=== PATIENT | male | born 1940 | race Caucasian/White ===

== ENCOUNTER → 2020-01-30 07:30 | Outpatient (BNVA) | payer MEDICARE, SELFPAY | PROVIDERS: PCP Internal Medicine; Referring Provider Internal Medicine; Visit Provider Internal Medicine Endocrinology, Diabetes & Metabolism | DX: E11.65 Type 2 diabetes mellitus with hyperglycemia (principal); E11.40 Type 2 diabetes mellitus with diabetic neuropathy, unspecified; E11.22 Type 2 diabetes mellitus with diabetic chronic kidney disease; I12.9 Hypertensive chronic kidney disease with stage 1 through stage 4 chronic kidney disease, or unspecified chronic kidney disease; N18.30 Chronic kidney disease, stage 3 unspecified; Z79.4 Long term (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 insulin; E66.9 Obesity, unspecified; E78.5 Hyperlipidemia, unspecified; E55.9 Vitamin D deficiency, unspecified; Z79.899 Other long term (current) drug therapy | CPT/HCPCS: 99214 ==

== ENCOUNTER → 2020-04-03 10:09 | Outpatient (BNVA) | payer MEDICARE, SELFPAY | PROVIDERS: PCP Internal Medicine; Referring Provider Internal Medicine; Visit Provider Anesthesiology | DX: M48.061 Spinal stenosis, lumbar region without neurogenic claudication (principal); E66.9 Obesity, unspecified; M47.9 Spondylosis, unspecified; G89.4 Chronic pain syndrome | CPT/HCPCS: 99212 ==

== ENCOUNTER → 2020-05-09 08:01 | Outpatient (BNVA) | payer MEDICARE, SELFPAY | PROVIDERS: PCP Internal Medicine; Visit Provider Anesthesiology | DX: E66.9 Obesity, unspecified (principal); M48.061 Spinal stenosis, lumbar region without neurogenic claudication; M47.9 Spondylosis, unspecified; G89.4 Chronic pain syndrome | CPT/HCPCS: 99212 ==

== ENCOUNTER → 2020-06-10 16:29 | Outpatient (BNVA) | payer MEDICARE, SELFPAY | PROVIDERS: PCP Internal Medicine; Visit Provider Anesthesiology | DX: E66.9 Obesity, unspecified (principal); M48.061 Spinal stenosis, lumbar region without neurogenic claudication; M47.9 Spondylosis, unspecified; G89.4 Chronic pain syndrome | CPT/HCPCS: Q3014 ==

== ENCOUNTER 2020-07-11 10:52 | Outpatient (REF) | payer MEDICARE, SELFPAY ==
[2020-07-11 12:23] LABS: MANUAL DIFF FLAG NO
[2020-07-11 12:32] LABS: Basophils Percent Auto 0.8 % (0-2); Eosinophils Absolute Auto 0.1 X10*3/uL (0.0-0.4); Eosinophils Percent Auto 1.8 % (0-4); Hematocrit 40.8 % (42-52); Hemoglobin 13.5 g/dl (14.0-18.0); Lymphocytes Absolute Auto 1.8 X10*3/uL (1.2-4.9); Lymphocytes Percent Auto 35.4 % (20-40); Mean Corpuscular HGB Conc 33.1 g/dl (31.0-36.0); Mean Corpuscular Hemoglobin 31.3 pg (27.0-33.0); Mean Corpuscular Volume 94.7 fL (80-98); Mean Platelet Volume 11.4 fL (9.4-12.4); Monocytes Absolute Auto 0.4 X10*3/uL (0.1-1.2); Monocytes Percent Auto 6.9 % (2-11); Neutrophils Absolute Auto 2.8 X10*3/uL (2.0-8.3); Neutrophils Percent Auto 55.1 % (45-73); Platelet Count 143 X10*3/uL (160-400); Red Blood Count 4.31 X10*6/uL (4.60-5.80); Red Cell Distribution Width 13.2 % (11.0-16.0); White Blood Count 5.1 X10*3/uL (4.8-10.8)
[2020-07-11 12:42] LABS: Cholesterol 136 mg/dL; HDL Cholesterol 53 mg/dL; INTERNATIONAL NORM RATIO 1.1 (0.9-1.1); LDL Cholesterol Calculated 59 mg/dl; Prothrombin Time 12.7 SEC (10.8-13.0); Triglycerides 122 mg/dL
[2020-07-11 13:00] LABS: Anion Gap 15 (12-20); Blood Urea Nitrogen 23 mg/dL (9-16); Calcium 9.1 mg/dL (8.4-10.2); Carbon Dioxide 27 mmol/L (22-29); Chloride 103 mmol/L (96-108); Estimated Glomerular Filt Rate 59; Potassium 4.7 mmol/L (3.3-5.1); Sodium 140 mmol/L (135-145)
[2020-07-11 13:04] LABS: Glucose Random 449 mg/dL (60-115)
[2020-07-11 13:49] LABS: Creatinine Urine 90.79 mg/dL; Microalbum/Creatinine Ratio Ur 59.4 ug/mg cr
[2020-07-12 06:07] LABS: LDL Cholesterol Direct 69 mg/dL (<100)
[2020-07-16 13:12] LABS: Vitamin D 25-OH, D2 <4 ng/mL; Vitamin D 25-OH, D3 25 ng/mL; Vitamin D 25-OH, Total 25 ng/mL (30-100)
== END 2020-07-11 10:53 | disposition home or self-care (01) ==
LOC: HO.LAB 10:52
PROVIDERS: Internal Medicine Clinical Cardiac Electrophysiology; Internal Medicine Endocrinology, Diabetes & Metabolism; PCP Internal Medicine; Visit Provider Internal Medicine Cardiovascular Disease
DX: I25.10 Atherosclerotic heart disease of native coronary artery without angina pectoris (principal); E55.9 Vitamin D deficiency, unspecified; E11.65 Type 2 diabetes mellitus with hyperglycemia; Z79.01 Long term (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 anticoagulants
CPT/HCPCS: 36415; 80048; 80061; 82043; 82306; 83721; 85025; 85610

== ENCOUNTER → 2020-07-15 08:49 | Outpatient (BNVA) | payer MEDICARE, SELFPAY | PROVIDERS: PCP Internal Medicine; Visit Provider Nurse Practitioner Gerontology | DX: E11.65 Type 2 diabetes mellitus with hyperglycemia (principal); E11.21 Type 2 diabetes mellitus with diabetic nephropathy; E11.22 Type 2 diabetes mellitus with diabetic chronic kidney disease; I12.9 Hypertensive chronic kidney disease with stage 1 through stage 4 chronic kidney disease, or unspecified chronic kidney disease; N18.30 Chronic kidney disease, stage 3 unspecified; Z79.4 Long term (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 insulin; E66.9 Obesity, unspecified; E78.5 Hyperlipidemia, unspecified | CPT/HCPCS: 82947; 99212 ==

== ENCOUNTER → 2020-08-01 10:16 | Outpatient (BNVA) | payer MEDICARE, SELFPAY | PROVIDERS: PCP Internal Medicine; Visit Provider Internal Medicine Endocrinology, Diabetes & Metabolism | DX: E11.65 Type 2 diabetes mellitus with hyperglycemia (principal); E11.40 Type 2 diabetes mellitus with diabetic neuropathy, unspecified; E11.21 Type 2 diabetes mellitus with diabetic nephropathy; E11.22 Type 2 diabetes mellitus with diabetic chronic kidney disease; I12.9 Hypertensive chronic kidney disease with stage 1 through stage 4 chronic kidney disease, or unspecified chronic kidney disease; N18.30 Chronic kidney disease, stage 3 unspecified; Z79.4 Long term (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 insulin; E78.5 Hyperlipidemia, unspecified; E66.9 Obesity, unspecified; E55.9 Vitamin D deficiency, unspecified | CPT/HCPCS: 82947; 99212 ==

== ENCOUNTER 2020-09-06 11:03 | Day surgery (SDC) | payer MEDICARE, SELFPAY ==
[2020-09-02 11:49] VITALS: BMI 32.5
--- NOTE | 2020-09-05 14:18 | HO.ANESPROP2 ---
Documented by User: Teresa Henson 09/05/20 14:55 HPI - Anesthesia Eval Consult details Narrative: 80yo M for Lumbar Spinal Cord Simulation Trial Cardiac/EP cleared @ moderate risk. Pt had ICD placed 07/2020. Recommends [employer] be present for procedure. Per Renee at OR desk, Dr Verdin office is to set that up. Dr Verdin office notified. [facility] Active Problems Active Problems: All Active Problems (Updated 09/02/20 @ 12:00 by Tigist Quiles) Driving safety issue (Acute) Chronic pain syndrome (Acute) Spondylosis, unspecified (Acute) Spinal stenosis, lumbar region without neurogenic claudication (Acute) CAD (coronary artery disease) (Acute) Obesity (BMI 30-39.9) (Acute) Dyslipidemia (high LDL; low HDL) (Acute) Hypertension (Acute) Vitamin D deficiency (Acute) CKD stage 3 due to type 2 diabetes mellitus (Acute) Diabetic nephropathy associated with type 2 diabetes mellitus (Acute) Diabetic neuropathy associated with type 2 diabetes mellitus (Acute) terminologist (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 insulin (Acute) Diabetes type 2, uncontrolled (Acute) Past Medical History Medical History (Updated 09/06/20 @ 13:43 by Lissette Wade) BPH (benign prostatic hyperplasia) CAD (coronary artery disease) Chronic pain syndrome CKD stage 3 due to type 2 diabetes mellitus COVID-19 vaccine administered Diabetes type 2, uncontrolled Diabetic nephropathy associated with type 2 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 Dyslipidemia (high LDL; low HDL) Hard of hearing History of anal fissures Hx of cardiomyopathy Hypertension senior living (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 insulin Obesity (BMI 30-39.9) Spinal stenosis, lumbar region without neurogenic claudication Spondylosis, unspecified TIA (transient ischemic attack) Vitamin D deficiency Family History Family History Father Colon cancer Lung cancer Mother Diabetes Surgical History Surgical History H/O colonoscopy History of bowel resection History of cardiac defibrillator placement Hx of cholecystectomy Hx of coronary artery bypass graft Hx of hernia repair Social History Social History Smoking Status: Never smoker Use of substances other than those prescribed or required for medical reasons: No Have you been hit, kicked, punched, or otherwise hurt by someone within the past year? If so, by whom?: No Advance Directives Information Provided: No Recently lost weight without trying: No Eating poorly because of decreased appetite: No Nutrition Risks: Surgical patient >75years Meds Allergies Allergy/AdvReac Type Severity Reaction Status Date / Time No Known Allergies Allergy Verified 08/12/20 12:53 [No Known Allergies*] Home Medications Medication Instructions Recorded Confirmed Last Taken Type aspirin 81 mg tablet,delayed 81 mg PO DAILY 01/30/20 09/06/20 08/27/20 History release sacubitril 49 mg-valsartan 51 mg 1 tab PO BID 01/30/20 09/02/20 Unknown History tablet tamsulosin 0.4 mg capsule 0.4 mg PO BEDTIME 01/30/20 09/02/20 Unknown History gabapentin 300 mg capsule 600 mg PO BID cap 07/15/20 09/02/20 Unknown History nitroglycerin 0.4 mg sublingual 0.4 mg SUBLINGUAL ONCE PRN tab 07/15/20 09/02/20 Unknown History tablet oxycodone 5 mg tablet 5 mg PO tab 08/01/20 08/01/20 Unknown History insulin aspart (niacinamide) 15 - 22 unit SUBCUT TIDAC 09/02/20 09/02/20 Unknown History [Fiasp FlexTouch U-100 Insulin] insulin degludec [Tresiba 30 unit SUBCUT QAM 09/02/20 09/06/20 09/06/20 07:00 History FlexTouch U-100] 15 units liraglutide 1.8 mg SUBCUT QPM 09/02/20 09/06/20 09/05/20 19:00 History half of normal dose Exam Exam Date and Time: September 05, 2020 1418 Height,Weight and Vital Signs: Height 5 ft 8 in Weight 97 kg Pertinent Lab Results Pertinent Lab Results: Laboratory Tests 07/11/20 07/11/20 11:25 11:25 WBC 5.1 Hgb 13.5 L Hct 40.8 L Plt Count 143 L Sodium 140 Potassium 4.7 Chloride 103 Carbon Dioxide 27 BUN 23 H Creatinine 1.19 Narrative Narrative: BiV ICD interrogation 09/03/20 (full report on chart) DDD 50-130 bpm AP: 0.3% CERTIFIED SURGICAL FIRST ASSISTANT: 97.1% Lead impedence, threshold, and sensing auto testing all within normal parameters No alerts, etc No therapies delivered EF 27% Assessment and Plan Assessment Anesthesia Assessment: Chart Reviewed Documented by User: Lissette Wade 09/06/20 13:46 [facility] Past Medical History Medical History (Updated 09/06/20 @ 13:43 by Lissette Wade) BPH (benign prostatic hyperplasia) CAD (coronary artery disease) Chronic pain syndrome CKD stage 3 due to type 2 diabetes mellitus COVID-19 vaccine administered Diabetes type 2, uncontrolled Diabetic nephropathy associated with type 2 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 Dyslipidemia (high LDL; low HDL) Hard of hearing History of anal fissures Hx of cardiomyopathy Hypertension terminologist (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 insulin Obesity (BMI 30-39.9) Spinal stenosis, lumbar region without neurogenic claudication Spondylosis, unspecified TIA (transient ischemic attack) Vitamin D deficiency Family History Family History Father Colon cancer Lung cancer Mother Diabetes Family history of problems with anesthesia: No Surgical History Surgical History H/O colonoscopy History of bowel resection History of cardiac defibrillator placement Hx of cholecystectomy Hx of coronary artery bypass graft Hx of hernia repair History of Problems with Anesthesia: No Social History Social History Smoking Status: Never smoker Use of substances other than those prescribed or required for medical reasons: No Have you been hit, kicked, punched, or otherwise hurt by someone within the past year? If so, by whom?: No Advance Directives Information Provided: No Recently lost weight without trying: No Eating poorly because of decreased appetite: No Nutrition Risks: Surgical patient >75years Meds Allergies Allergy/AdvReac Type Severity Reaction Status Date / Time No Known Allergies Allergy Verified 08/12/20 12:53 [No Known Allergies*] Home Medications Medication Instructions Recorded Confirmed Last Taken Type aspirin 81 mg tablet,delayed 81 mg PO DAILY 01/30/20 09/06/20 08/27/20 History release sacubitril 49 mg-valsartan 51 mg 1 tab PO BID 01/30/20 09/02/20 Unknown History tablet tamsulosin 0.4 mg capsule 0.4 mg PO BEDTIME 01/30/20 09/02/20 Unknown History gabapentin 300 mg capsule 600 mg PO BID cap 07/15/20 09/02/20 Unknown History nitroglycerin 0.4 mg sublingual 0.4 mg SUBLINGUAL ONCE PRN tab 07/15/20 09/02/20 Unknown History tablet oxycodone 5 mg tablet 5 mg PO tab 08/01/20 08/01/20 Unknown History insulin aspart (niacinamide) 15 - 22 unit SUBCUT TIDAC 09/02/20 09/02/20 Unknown History [Fiasp FlexTouch U-100 Insulin] insulin degludec [Tresiba 30 unit SUBCUT QAM 09/02/20 09/06/20 09/06/20 07:00 History FlexTouch U-100] 15 units liraglutide 1.8 mg SUBCUT QPM 09/02/20 09/06/20 09/05/20 19:00 History half of normal dose Exam Height,Weight and Vital Signs: Vital Signs Temp Pulse Resp BP Pulse Ox 09/06/20 11:48 97.4 F 84 16 129/72 98 Pertinent Lab Results Pertinent Lab Results: Lab Results 09/06/20 Range/Units 11:46 POC Glucose 210 H (60-115) mg/dL Airway Mallampati Class: II TM Dist: >3cm Denture: Upper Heart: RRR Lungs: CTAB Assessment and Plan Assessment Anesthesia Assessment: Anesthesia Plan Discussed and Chart Reviewed Final Anesthetic Review NPO: Yes ASA Class: III Final Preanesthetic Review: No Changes in Pt Med Stat, Meds/Allgs Chart Reviewed, Consent Obtained/Reviewed and Anes Risks/Benef Reviewed Patient Risk: Intermediate Procedure Risk: Intermediate Assessment/Block/Sedation in SS: Assess/Block/Sedation-SS Anesthetic Plan Anesthetic Plan: MAC: Disposition: Standard PACU
--- NOTE | ~2020-09-06 | FL_ITS ---
EXAMINATION: XR FLUOROSCOPY WITH IMAGES CLINICAL INFORMATION: Spinal stimulator trial COMPARISON: None. TECHNIQUE: Fluoroscopy performed by Dr. Maksim Verdin. Fluoroscopy time: 6.9 minutes DAP: [id number] Images: 2 FINDINGS: Lateral and AP views of the lower thoracic spine demonstrates stimulator lead projecting over the lower thoracic spinal canal. FL/FL guidance in OR IMPRESSION: Fluoroscopy guidance for spinal stimulator
[2020-09-06 11:48] VITALS: BP 129/72; PULSE 84; RESP 16; TEMP 36.3; O2SAT 98
[2020-09-06 11:50] LABS: Glucose, Whole Blood 210 mg/dL (60-115)
--- NOTE | 2020-09-06 12:05 | P.HPSUR_ITS ---
Pre-Procedural Eval Section A The patient is an INPATIENT: No Changes since office visit: Yes Patient answered all questions The History & Physical has been completed within 30 days and I have reviewed it.: No Section B Chief Complaint: Chronic Pain Syndrome, Spinal Stenosis Details of Present Illness: as above Relevant Family History (Specify if Yes): No Relevant Social History: None Present Medications: see Short Stay Collaborative assessment Medical History: Significant History History of Previous Operations: Relevant previous surgery/procedure and date(s) (the patient has implanted defibrillator.) Allergies: Allergies Allergy/AdvReac Type Severity Reaction Status Date / Time No Known Allergies Allergy Verified 08/12/20 12:53 [No Known Allergies*] Review of Systems Sugical H&P ROS: Negative: Constitution, Respiratory, Neurological, Psychiatric, Hem-Onc, Allergic/Immunologic, Gastrointestinal, Genitourinary, Integumentary and Eyes/Ears/Nose/Throat and Yes, Specify: Cardiovascular (CHF), Musculoskeletal (spinal stenosis) and Endocrine (poorly controlled diabetes) Exam Surgical H&P Exam: Normal: HEENT, Normal: Heart, Normal: Lungs, Normal: Extre mities, Normal: Abdomen, Normal: Skin and Normal: Neurological Plan Diagnosis/Plan: Unchanged I have reviewed the history and physical and performed a pertinent physical examination on my patient. No changes have occurred unless specified.
[2020-09-06] MEDS: Lactated Ringers 1,000 ML 20 ML IVCONT (12:06)
[2020-09-06 13:50] VITALS: BP 124/60; PULSE 81; RESP 14; TEMP 36; O2SAT 100
--- NOTE | 2020-09-06 14:04 | P.BOP_ITS ---
Brief Operative Note Date of Service: 09/06/20 Pre-op diagnosis: spinal stenosis Post-op diagnosis: same Procedure: trial of Nevro SCS Implants: none permanent Surgeon: Maksim Verdin MD Anesthesia: MAC Was an Operations Research Analyst used for this Procedure?: No Estimated blood loss (mL): 10 Pathology: none sent Condition: stable Disposition: PACU
[2020-09-06 14:05] VITALS: BP 117/64; PULSE 75; RESP 16; TEMP 36.1; O2SAT 96
--- NOTE | 2020-09-06 14:09 | P.OP_ITS ---
Operative Note Operative Note Date of Service: 09/06/20 Narrative: entrance T12 -L1 , right needle - lead on the right advanced to T8, Left needle - left electrode went ot tip of T9. is very pleasant 80 years old gentleman who came today into the operating room for trial of spinal cord stimulator for the treatment of pain related to degenerative disc disease and chronic pain syndrome. Preoperatively patient received 2 g cefazolin _approximately 30 minutes before the procedure. After obtaining informed consent patient was brought to the operating room, he was positioned prone on operating table, [employer] monitors were applied and patient was deeply sedated. Time-out was performed delineating correct site, side, the nature of the procedure, patient's allergy, preoperative antibiotic. All operating room staff was participating in OR time-out procedure. Patient's entire back was prepped with ChloraPrep twice and draped with full body drape. Sterilely draped C-arm was brought over operating field and square picture of T12, L1, L2 vertebrae as were demonstrated on the screen. . Attention FIRST was concentrated on the RIGHT T12-L1 epidural interspace. The location of the projection of the right pedicle center of the L2 vertebra was found on the skin using C-arm. This location was injected with mixture of lidocaine 2% and Marcaine 0.5% 5 cc in approximate direction of needle advancement.. After that 10 cm 14 gauge straight introducer epidural needle was inserted through the fascia and advanced toward T12-L1 epidural interspace. The advancement of the needle was performed on anterior posterior and lateral views. Guitar wire and loss of resistance technique were used to locate epidural space. When guitar wire was spread in the epidural fashion, epidural lead was inserted through the skin and it was advanced in the posterior epidural space to the mid body of T8 vertebra slightly right to midline. After that location of the projection of the LEFT pedicle center of the L2 vertebra was found -using C-arm. This location was injected with mixture of lidocaine 2% and Marcaine 0.5% 5 cc.. . 10 cm 14 gauge curved introducer epidural needle was inserted through the skin and advanced to T12-L1 epidural interspace. The advancement of the needle was performed on anterior posterior and lateral views. Guitar wire and loss of resistance technique were used to locate epidural space. When guitar wire was spread in the epidural fashion, epidural lead was inserted through the needle and advanced to the top of T9 slightly left of the existing epidural lead. The leads were connected to the testing device and impedance was found appropriate. After that the epidural needles were removed while care was taken to keep the epidural electrodes in place. Anchoring devices were dislodged on the each of the epidural leads to the level of the skin. They were engaged at the level of the skin. After that they were sutured to the skin using 0 silk sutures Bacitracin ointment was applied to the level of the skin. Sterile dressing was applied. At this moment patient was taken to the PACU where he recovered uneventfully.
[2020-09-06 14:20] VITALS: BP 132/61; PULSE 76; RESP 16; TEMP 36.6; O2SAT 98
== END 2020-09-06 15:43 | disposition home or self-care (01) ==
LOC: HO.SSS 11:04
PROVIDERS: PCP Internal Medicine; Visit Provider Anesthesiology
PROC: (CPT 63650; principal; 2020-09-06 12:50)
DX: M48.061 Spinal stenosis, lumbar region without neurogenic claudication (principal); G89.4 Chronic pain syndrome; E11.21 Type 2 diabetes mellitus with diabetic nephropathy; E11.40 Type 2 diabetes mellitus with diabetic neuropathy, unspecified; E11.22 Type 2 diabetes mellitus with diabetic chronic kidney disease; I12.9 Hypertensive chronic kidney disease with stage 1 through stage 4 chronic kidney disease, or unspecified chronic kidney disease; N18.30 Chronic kidney disease, stage 3 unspecified; Z79.4 Long term (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 insulin; Z79.82 Long term (current) use of aspirin; Z79.899 Other long term (current) drug therapy
CPT/HCPCS: 63650 ×2; 82947; C1897; J0690; J2250; J2370; J3010

== ENCOUNTER → 2020-09-11 13:38 | Outpatient (BNVA) | payer MEDICARE, SELFPAY | PROVIDERS: PCP Internal Medicine; Visit Provider Anesthesiology | DX: E66.9 Obesity, unspecified (principal); M48.061 Spinal stenosis, lumbar region without neurogenic claudication; M47.9 Spondylosis, unspecified; G89.4 Chronic pain syndrome | CPT/HCPCS: 99212 ==

== ENCOUNTER → 2020-09-24 09:08 | Outpatient (BNVA) | payer MEDICARE, SELFPAY | PROVIDERS: PCP Internal Medicine; Visit Provider Nurse Practitioner Family | DX: E66.9 Obesity, unspecified (principal); M48.061 Spinal stenosis, lumbar region without neurogenic claudication; M47.9 Spondylosis, unspecified; G89.4 Chronic pain syndrome | CPT/HCPCS: 99212 ==

== ENCOUNTER → 2020-10-22 10:33 | Outpatient (BNVA) | payer MEDICARE, SELFPAY | PROVIDERS: PCP Internal Medicine; Visit Provider Nurse Practitioner Family | DX: M48.061 Spinal stenosis, lumbar region without neurogenic claudication (principal); M47.9 Spondylosis, unspecified; G89.4 Chronic pain syndrome; E66.9 Obesity, unspecified | CPT/HCPCS: 99212 ==

== ENCOUNTER → 2020-11-11 07:50 | Outpatient (BNVA) | payer MEDICARE, SELFPAY | PROVIDERS: PCP Internal Medicine; Visit Provider Nurse Practitioner Gerontology | DX: E11.65 Type 2 diabetes mellitus with hyperglycemia (principal); E11.42 Type 2 diabetes mellitus with diabetic polyneuropathy; E11.21 Type 2 diabetes mellitus with diabetic nephropathy; E11.22 Type 2 diabetes mellitus with diabetic chronic kidney disease; I12.9 Hypertensive chronic kidney disease with stage 1 through stage 4 chronic kidney disease, or unspecified chronic kidney disease; N18.30 Chronic kidney disease, stage 3 unspecified; E78.5 Hyperlipidemia, unspecified; E55.9 Vitamin D deficiency, unspecified; Z79.4 Long term (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 insulin | CPT/HCPCS: 82947; 99212 ==

== ENCOUNTER → 2020-11-26 08:53 | Outpatient (BNVA) | payer MEDICARE, SELFPAY | PROVIDERS: PCP Internal Medicine; Visit Provider Nurse Practitioner Family | DX: M48.061 Spinal stenosis, lumbar region without neurogenic claudication (principal); M47.9 Spondylosis, unspecified; G89.4 Chronic pain syndrome | CPT/HCPCS: 99212 ==

== ENCOUNTER 2020-12-17 10:00 | Outpatient (RCR) | payer MEDICARE, SELFPAY ==
--- NOTE | 2020-11-22 11:37 | MHC.PT.EP ---
[facility] [place] Office [place] Office [place] Office [address] Daryn Reynolds [address] [phone] F: [phone] F: [phone] F: [phone] F: [phone] Physical Therapy Plan of Care Date of Evaluation: Date of Surgery: Diagnosis: SPINAL STENOSIS Assessment: 80 YO MALE REF TO PT FOR SPINAL STENOSIS- HE HAS A SIGNIF CARDIAC AND DIABETES H/O W (+) IMPLANTED DEFIB. OBJECTIVE FINDINGS: DECR POSTURE AWARENESS-> SACRAL SITTER, DECR HS / HIP FLEXIB, LEs WEAKNESS, AND PAIN IN CENTRAL LS. 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 Pt WOULD BENEFIT FROM PT TO ADDRESS THE ABOVE FINDINGS AND ASSIST Pt W PAIN MGMT TECHN. Frequency and Duration: The patient will be seen 2x WK x 5 WKS Short Term Goals: Pt DEMON IMPROVED SELF CORRECT POSTURE (REDUCED SACRAL SITTING) AND AMB POSTURE IN 2 WKS Pt'S LBP DECR TO 3-4/10 W ADLs IN 2 WKS IMPROVE ANKLE,HS AND HIP FLEXIB PACHECO IN 3 WKS Photographic Developer And Printer Goals: IMPROVED OSWESTRY SCORE BY AT LEAST 5 POINTS (27/50 AT EVAL) IN 5 WKS Pt DEMON PROPER TRANSFER , GAIT AND BED MOB MECHANICS , REDUCING LS STRESS IN 5 WKS Pt DEMON STATIC STAND x 15 SEC W EO, W/O EXT SUPPORT IN 5 WKS Treatment Plan: Modalities to reduce pain, spasms and effusion. Manual therapy to restore motion and function. Therapeutic exercise to improve strength and flexibility. Neuromuscular re-education for posture and balance. Therapeutic activities to return to functional activities of daily living. Electronically signed by: Sara Rivera,PT Please sign and return to therapist. Thank you for your referral.
--- NOTE | 2020-12-18 10:40 | MHC.PT.DC ---
[facility] [place] Office [place] Office [place] Office [address] Daryn Reynolds [address] [phone] F: [phone] F: [phone] F: [phone] F: [phone] Physical Therapy Discharge Report Diagnosis: Spinal Stenosis Date of Surgery: Date of Evaluation: 11/22/20 Date of Discharge: 12/17/20 Treatments to Date: 4 Cancellations to Date: 1 No Shows to Date: 0 Discharge Status: Patient Elected to Stop Discharge Summary: pt to hold PT Has pending surgery for spinal stimulator Dec.26 Also cataract surgery? No reported dizziness today. BP above taken at end of shortened session today. Pt HAS A HEP AND WILL CONTINUE TO PERFORM ABLE- HE DID NOT MEET HIS PT GOALS, BUT HE FEELS HE NEEDS TO D/C PT TO ALLOW RE-FOCUS ON PENDING PROCEDURES. [place] Electronically signed by: Emperatriz Sanchez KNITTED GARMENT FINISHER Please sign and return to therapist. Thank you for your referral.
== END 2020-12-18 10:42 | disposition home or self-care (01) ==
LOC: HO.PT 10:00
PROVIDERS: PCP Internal Medicine; Visit Provider Internal Medicine
DX: M48.061 Spinal stenosis, lumbar region without neurogenic claudication (principal)
CPT/HCPCS: 97110; 97116; 97162; 97530

== ENCOUNTER 2020-12-26 10:30 | Day surgery (SDC) | payer MEDICARE, SELFPAY ==
[2020-12-19 09:45] VITALS: BMI 32.5
--- NOTE | 2020-12-25 09:33 | HO.ANESPROP2 ---
Documented by User: Teresa Henson NP 12/25/20 09:42 HPI - Anesthesia Eval Consult details Narrative: 80yo M for Lumbar Spinal Cord Stimulation Implant Cardiac/EP cleared @ moderate risk. Pt had ICD placed 07/2020. Routine cardiac visit 11/26/20 - stable. [facility] Active Problems Active Problems: All Active Problems (Updated 11/11/20 @ 09:03 by KIMI Graham) Driving safety issue (Acute) Adult general medical exam (Acute) Obesity (Acute) BPH (benign prostatic hyperplasia) (Acute) Hard of hearing (Acute) Chronic pain syndrome (Acute) Spondylosis, unspecified (Acute) Spinal stenosis, lumbar region without neurogenic claudication (Acute) CAD (coronary artery disease) (Acute) Dyslipidemia (high LDL; low HDL) (Acute) Hypertension (Acute) Vitamin D deficiency (Acute) CKD stage 3 due to type 2 diabetes mellitus (Acute) Diabetic nephropathy associated with type 2 diabetes mellitus (Acute) Diabetic neuropathy associated with type 2 diabetes mellitus (Acute) FDC (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 insulin (Acute) Diabetes type 2, uncontrolled (Acute) Past Medical History Medical History (Updated 11/11/20 @ 09:03 by KIMI Graham) BPH (benign prostatic hyperplasia) CAD (coronary artery disease) Chronic pain syndrome CKD stage 3 due to type 2 diabetes mellitus COVID-19 vaccine administered Diabetes type 2, uncontrolled Diabetic nephropathy associated with type 2 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 Dyslipidemia (high LDL; low HDL) Hard of hearing History of anal fissures Hx of cardiomyopathy Hypertension FDC (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 insulin Obesity Spinal stenosis, lumbar region without neurogenic claudication Spondylosis, unspecified TIA (transient ischemic attack) Vitamin D deficiency Family History Family History (Updated 10/29/20 @ 11:03 by KRISTY Garcia) Father Colon cancer Lung cancer Mother Diabetes Family history of problems with anesthesia: No Surgical History Surgical History (Updated 12/19/20 @ 09:40 by Tigist Quiles RN) H/O colonoscopy History of bowel resection History of cardiac defibrillator placement History of surgery Hx of cholecystectomy Hx of coronary artery bypass graft Hx of hernia repair History of Problems with Anesthesia: No Social History Social History Housing: House Alcohol intake: current Alcohol intake frequency: does not drink Patient Tobacco Use Status: Never used Tobacco e-Cigarette/Vaping Use: Never Used Second Hand Smoke Exposure: No Use of substances other than those prescribed or required for medical reasons: No Are you DNR?: No Advance Directives: No Advance Directives Information Provided: Yes service: No Current occupational status: retired Meds Allergies Allergy/AdvReac Type Severity Reaction Status Date / Time No Known Allergies Allergy Verified 11/26/20 08:57 [No Known Allergies*] Home Medications Medication Instructions Recorded Confirmed Last Taken Type aspirin 81 mg tablet,delayed 81 mg PO DAILY 01/30/20 11/26/20 08/27/20 History release (Adult Aspirin Regimen) sacubitril 49 mg-valsartan 51 mg 1 tab PO BID 01/30/20 11/26/20 Unknown History tablet tamsulosin 0.4 mg capsule 0.4 mg PO BEDTIME 01/30/20 11/26/20 Unknown History gabapentin 300 mg capsule 600 mg PO BID cap 07/15/20 11/26/20 Unknown History nitroglycerin 0.4 mg sublingual 0.4 mg SUBLINGUAL ONCE PRN tab 07/15/20 11/26/20 Unknown History tablet insulin aspart 15 - 22 unit SUBCUT TIDAC 09/02/20 11/26/20 Unknown History (niacinamide)(U-100) 100 unit/mL(3 mL) subcutaneous pen (Fiasp FlexTouch U-100 Insulin) insulin degludec 100 unit/mL (3 30 unit SUBCUT QAM 09/02/20 11/26/20 09/06/20 07:00 History mL) subcutaneous pen (Tresiba 15 units FlexTouch U-100 insulin) liraglutide 0.6 mg/0.1 mL (18 mg/3 1.8 mg SUBCUT QPM 09/02/20 11/26/20 09/05/20 19:00 History mL) subcutaneous pen injector half of normal dose Exam Exam Date and Time: December 25, 2020932 Height,Weight and Vital Signs: Height 5 ft 8 in Weight 97 kg Narrative Narrative: BiV ICD interrogation 09/03/20 (full report on chart) DDD 50-130 bpm AP: 0.3% CHUCKING MACHINE SET UP OPERATOR TOOL: 97.1% Lead impedence, threshold, and sensing auto testing all within normal parameters No alerts, etc No therapies delivered EF 27% ECHO 11/2019 Technically difficult study, but stable from 04/2019 Assessment and Plan Assessment Anesthesia Assessment: Chart Reviewed Final Anesthetic Review Family History of Problems with Anesthesia: No History of Problems with Anesthesia: No Documented by User: Birdie Sullivan MD 12/26/20 11:27 [facility] Past Medical History Medical History (Updated 11/11/20 @ 09:03 by KIMI Graham) BPH (benign prostatic hyperplasia) CAD (coronary artery disease) Chronic pain syndrome CKD stage 3 due to type 2 diabetes mellitus COVID-19 vaccine administered Diabetes type 2, uncontrolled Diabetic nephropathy associated with type 2 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 Dyslipidemia (high LDL; low HDL) Hard of hearing History of anal fissures Hx of cardiomyopathy Hypertension FDC (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 insulin Obesity Spinal stenosis, lumbar region without neurogenic claudication Spondylosis, unspecified TIA (transient ischemic attack) Vitamin D deficiency Family History Family History (Updated 10/29/20 @ 11:03 by KRISTY Garcia) Father Colon cancer Lung cancer Mother Diabetes Surgical History Surgical History (Updated 12/19/20 @ 09:40 by Tigist Quiles RN) H/O colonoscopy History of bowel resection History of cardiac defibrillator placement History of surgery Hx of cholecystectomy Hx of coronary artery bypass graft Hx of hernia repair Social History Social History Housing: House Alcohol intake: current Alcohol intake frequency: does not drink Patient Tobacco Use Status: Never used Tobacco e-Cigarette/Vaping Use: Never Used Second Hand Smoke Exposure: No Use of substances other than those prescribed or required for medical reasons: No Are you DNR?: No Advance Directives: No Advance Directives Information Provided: Yes service: No Current occupational status: retired Meds Allergies Allergy/AdvReac Type Severity Reaction Status Date / Time No Known Allergies Allergy Verified 11/26/20 08:57 [No Known Allergies*] Home Medications Medication Instructions Recorded Confirmed Last Taken Type aspirin 81 mg tablet,delayed 81 mg PO DAILY 01/30/20 11/26/20 08/27/20 History release (Adult Aspirin Regimen) sacubitril 49 mg-valsartan 51 mg 1 tab PO BID 01/30/20 11/26/20 Unknown History tablet tamsulosin 0.4 mg capsule 0.4 mg PO BEDTIME 01/30/20 11/26/20 Unknown History gabapentin 300 mg capsule 600 mg PO BID cap 07/15/20 11/26/20 Unknown History nitroglycerin 0.4 mg sublingual 0.4 mg SUBLINGUAL ONCE PRN tab 07/15/20 11/26/20 Unknown History tablet insulin aspart 15 - 22 unit SUBCUT TIDAC 09/02/20 11/26/20 Unknown History (niacinamide)(U-100) 100 unit/mL(3 mL) subcutaneous pen (Fiasp FlexTouch U-100 Insulin) insulin degludec 100 unit/mL (3 30 unit SUBCUT QAM 09/02/20 11/26/20 09/06/20 07:00 History mL) subcutaneous pen (Tresiba 15 units FlexTouch U-100 insulin) liraglutide 0.6 mg/0.1 mL (18 mg/3 1.8 mg SUBCUT QPM 09/02/20 11/26/20 09/05/20 19:00 History mL) subcutaneous pen injector half of normal dose Exam Airway Mallampati Class: II TM Dist: >3cm Neck ROM: Full Denture: Upper
[2020-12-26] VITALS (9 sets, daily range): BP systolic 89–133; BP diastolic 50–74; PULSE 62–90; RESP 16; TEMP 36.1–36.3; O2SAT 97–100
--- NOTE | ~2020-12-26 | FL_ITS ---
EXAMINATION: XR FLUOROSCOPY WITH IMAGES CLINICAL INFORMATION: Spinal cord stimulator COMPARISON: Fluoroscopic spot views 09/06/2020 TECHNIQUE: Fluoroscopy performed by Dr. Maksim Verdin. Fluoroscopy time: 6.1 minutes DAP: 37.9 mGycm2 Images: 5 FINDINGS: Fluoroscopic spot views show 2 stimulator electrodes overlying the mid to lower thoracic spine. No kinking or lead fragmentation. There are postsurgical changes again seen with sternotomy wires and AICD. Multilevel degenerative changes present thoracic spine with some mild loss of height similar to prior study. FL/FL guidance in OR IMPRESSION: Fluoroscopy for pain management procedure.
--- NOTE | 2020-12-26 08:13 | MHC.SHP ---
Pre-Procedural Eval Section A Date of Service: 12/26/20 The patient is an INPATIENT: No Changes since office visit: Yes Patient answered all questions The History & Physical has been completed within 30 days and I have reviewed it.: No Section B Chief Complaint: Chronic Pain Syndrome, Spinal Stenosis Details of Present Illness: as above Relevant Family History (Specify if Yes): No Relevant Social History: None Present Medications: see Short Stay Collaborative assessment Medical History: No relevant PMH History of Previous Operations: No relevant previous surgery Allergies: Allergies Allergy/AdvReac Type Severity Reaction Status Date / Time No Known Allergies Allergy Verified 11/26/20 08:57 [No Known Allergies*] Review of Systems Sugical H&P ROS: Negative: Constitution, Respiratory, Psychiatric, Hem-Onc, Allergic/Immunologic, Gastrointestinal, Genitourinary, Integumentary, Endocrine and Eyes/Ears/Nose/Throat and Yes, Specify: Cardiovascular (CHF in remission, ICDF implant), Neurological (low back pain) and Musculoskeletal (spinal stenosis) Exam Surgical H&P Exam: Normal: HEENT, Normal: Heart, Normal: Lungs, Normal: Extremities, Normal: Abdomen and Normal: Skin and Not Evaluated: Neurological (B/l LE weakness) Plan Diagnosis/Plan: Unchanged I have reviewed the history and physical and performed a pertinent physical examination on my patient. No changes have occurred unless specified.
--- NOTE | 2020-12-26 08:16 | P.OP_ITS ---
Operative Note Operative Note Date of Service: 12/26/20 Narrative: Mr. Rivera is very pleasant 80 years old gentleman who came to OR for the? implantl of SCS Nevro to treat the lumbar spine pain secondary to ;spinal stenosis . After obtaining informed consent the patient was brought to the operating room, He was positioned supine on the stretcher, [place] [employer] monitors were applied and patient was induced with general anesthesia with endotracheal intubation. The patient was transfered to the operating table prone e, all pressure points were protected. ? Time-out was performed delineating correct site, side, the nature of the procedure, patient's allergy, preoperative antibiotic if needed.? All operating room staff was participating in OR time-out procedure. He received preoperatively cefazolin 2 g mg IV approximately 20 minutes before the procedure. Patient's entire back was prepped with ChloraPrep twice and draped with full body fenestrated drape including ioban film..? Sterilely draped C-arm was brought over operating field and square picture of T12 ? L1 L2 vertebrae were demonstrated on the screen.? Attention FIRST? was concentrated on the? T12 -L1? epidural space. The projection of L2-L3? vertebral bodies strictly down midline was injected with lidocaine 2% mixed with bupivacaine 0.5% in .? After that strict midline incision was made in the projection of L2 and L3 vertebral bodies to the skin.? The incision was widened using cautery dissection, and then thorough hemostasis was performed and prevertebral fascia was freed from overlying tissues.? The location of the projection of the right L2 pedicle center on the right was found using C-arm.? This location was injected with mixture of lidocaine 2% and Marcaine 0.5% 5 cc. ?10 cm 14 gauge introducer epidural needle was inserted? into the fascia and advanced to? the epidural interspace T12-L1. The advancement of the needle was performed on anterior posterior and lateral views.? Guitar wire and loss of resistance to air technique were used to locate epidural space.? When guitar wire was spread in the epidural fashion, epidural lead was inserted through the needle and it was? advanced to the cervical posterior epidural space on anterior posterior and lateral intermittent views.?The epidural lead was advanced to the T8 space and verified being in posterior epidural space on the lateral view. After that location of the projection of the LEFT pedicle center of the L2 _ve rtebra was found on the skin using C-arm.? This location was injected with mixture of lidocaine 2% and Marcaine 0.5% 5 cc. 10 cm 14 gauge introducer epidural needle was inserted through the fascia and advanced to T12-L1 epidural interspace. The HOMA to air was used to locate epidural space? and after that epidural lead was inserted into the needle and advanced toward T12-L1 epidural interspace slightly left from the midline. After epidural space was found lead advancement was found to be difficult because the needle position was too lateral. Attempt to medialized the position by switching the needle to the short blue sheath introducer did not result in success. The epidural lead and the blue sheath introducers were removed and then epidural needle was again brought onto the field and starting from projection of the L2 pedicle it was advanced to our T12-L1 interspace. Now the care was taken to keep the tip of the needle closer to the midline. Epidural space was found using loss of r esistance technique and after that epidural lead was inserted into the needle and advanced to were T9 vertebra projection. The position of both leads in the posterior epidural space was verified on anterior posterior and lateral views. The images were saved. The anchoring devices were dislodged on the leads and advanced to the level of the? prevertebral fascia.? They were fixed to prevertebral fascia with 1-0 Tycron two sutures for each anchoring device and then the screws were tightened on the anchoring device fixating the epidural leads to the anchoring devices. after that thorough irrigation of the wound was performed with normal saline containing vancomycin and the wound was packed with vancomycin soaked 4 x 4? Ray-Skylar. ? After that attention was concentrated on the left buttock of the patient where?he wanted the battery to be implanted.? The injection of the local anesthetic lidocaine 2% mixed with bupivacaine 0.5% was made in the projection of the horizontal line 2 cm below the top of the illiac crest. After that 6.5 cm incision was made on the skin using 10 blade scalpel.? The wound was widened using weitlaner retractor and thorough hemostasis was performed using electroca utery device.? After that 2 cm deep? under the skin the pocket was formed for the battery.? Thorough hemostasis was obtained again and irrigation was performed using vancomycin containing normal saline. After that the? tunneling device was brought on the operating field and the two wounds were connected by tunneling device. Using tunneling device the epidural electrodes were dislodged into the lateral wound.? They were connected to the battery.? At this time impedance was checked and found to be satisfactory. Both wounds was irrigated again with vanco containing normal saline and the sutures were applied in the most superior central portion of the wound and most superior lateral portion of the wound using Tycron 1.0 . The sutures were connected to the orifices on the battery, the epidural leads were gathered behind the body of the battery and the battery was inserted into the wound.? After that? anchoring sutures were tied.? The wounds were again irrigated with? vancomycin containing normal saline they were suction dried and the were closed using? 0? uninterrupted Polysorb sutures.? 2-0 sutures Polysorb were used to approximate the level of the skin.? After that ashly were applied to the skin level.? Bacitracin ointment was applied to the area of the surgical incisions and then sterile dressing was applied using? Medipore tape. The patient tolerated procedure well.? He was awakened and transferred to PACU for recovery without immediate complications.
--- NOTE | 2020-12-26 08:16 | PM.OP ---
Brief Operative Note Date of Service: 12/26/20 Pre-op diagnosis: spinal stenosis Post-op diagnosis: same Procedure: implantation of spinal cord stimulator Nevro Implants: Never spinal cord stimulator battery and 2 epidural leads. Surgeon: Maksim Verdin MD Anesthesia: GETA Was an Manufacturing Lab Technician used for this Procedure?: No Estimated blood loss (mL): 40 Pathology: none sent Condition: stable Disposition: PACU
[2020-12-26 11:00] LABS: Glucose, Whole Blood 170 mg/dL (60-115)
[2020-12-26] MEDS: Lactated Ringers 500 ML 20 ML IVCONT (11:05)
[2020-12-26 11:19] LABS: Hematocrit 37.6 % (42-52); Hemoglobin 12.4 g/dl (14.0-18.0); Mean Platelet Volume 10.1 fL (9.4-12.4); Platelet Count 107 X10*3/uL (160-400); Red Cell Distribution Width 13.2 % (11.0-16.0); White Blood Count 4.9 X10*3/uL (4.8-10.8)
[2020-12-26] MEDS: ondansetron HCL 4 MG/2 ML VIAL IVPUSH (15:13)
[2020-12-26] MEDS: traMADoL HCL 50 MG TABLET PO (15:51)
[2020-12-26] MEDS: fentaNYL citrate/PF 100 MCG/2 ML VIAL 50 MCG IVPUSH (16:03)
== END 2020-12-26 16:55 | disposition home or self-care (01) ==
PROVIDERS: PCP Internal Medicine; Visit Provider Anesthesiology
PROC: (CPT 63685; principal; 2020-12-26 12:00)
DX: M48.061 Spinal stenosis, lumbar region without neurogenic claudication (principal); M47.9 Spondylosis, unspecified; G89.4 Chronic pain syndrome; E66.9 Obesity, unspecified; Z68.29 Body mass index [BMI] 29.0-29.9, adult; E11.22 Type 2 diabetes mellitus with diabetic chronic kidney disease; I12.9 Hypertensive chronic kidney disease with stage 1 through stage 4 chronic kidney disease, or unspecified chronic kidney disease; N18.30 Chronic kidney disease, stage 3 unspecified; E11.21 Type 2 diabetes mellitus with diabetic nephropathy; E11.40 Type 2 diabetes mellitus with diabetic neuropathy, unspecified; I25.10 Atherosclerotic heart disease of native coronary artery without angina pectoris; Z95.1 Presence of aortocoronary bypass graft; Z95.810 Presence of automatic (implantable) cardiac defibrillator; Z79.82 Long term (current) use of aspirin; Z79.899 Other long term (current) drug therapy; Z79.4 Long term (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 insulin; Z90.49 Acquired absence of other specified parts of digestive tract
CPT/HCPCS: 63685; 63650 ×2; 36415; 82947; 85027; C1713; C1778; C1787; C1816; J0690; J1100; J2250; J2405; J3010; J3370

== ENCOUNTER → 2021-01-01 11:11 | Outpatient (BNVA) | payer MEDICARE, SELFPAY | PROVIDERS: PCP Internal Medicine; Visit Provider Anesthesiology | DX: M47.9 Spondylosis, unspecified (principal); G89.4 Chronic pain syndrome; M48.061 Spinal stenosis, lumbar region without neurogenic claudication | CPT/HCPCS: 99212 ==

== ENCOUNTER → 2021-01-08 11:07 | Outpatient (BNVA) | payer MEDICARE, SELFPAY | PROVIDERS: PCP Internal Medicine; Visit Provider Anesthesiology | DX: M48.061 Spinal stenosis, lumbar region without neurogenic claudication (principal); M47.9 Spondylosis, unspecified; G89.4 Chronic pain syndrome | CPT/HCPCS: 99212 ==

== ENCOUNTER 2021-01-13 14:13 | Outpatient (REF) | payer MEDICARE, SELFPAY ==
[2021-01-13 15:44] LABS: MANUAL DIFF FLAG NO
[2021-01-13 15:58] LABS: Basophils Absolute Auto 0.1 X10*3/uL (0.0-0.2); Eosinophils Absolute Auto 0.1 X10*3/uL (0.0-0.4); Eosinophils Percent Auto 1.4 % (0-4); Hematocrit 40.8 % (42-52); Hemoglobin 13.5 g/dl (14.0-18.0); Imm Gran Abs Auto 0.02 X10*3/uL (0.00-0.03); Imm Gran Pct Auto 0.3 % (0.0-0.4); Lymphocytes Absolute Auto 1.9 X10*3/uL (1.2-4.9); Lymphocytes Percent Auto 30.6 % (20-40); Mean Corpuscular HGB Conc 33.1 g/dl (31.0-36.0); Mean Corpuscular Hemoglobin 30.8 pg (27.0-33.0); Mean Corpuscular Volume 93.2 fL (80-98); Mean Platelet Volume 10.3 fL (9.4-12.4); Monocytes Absolute Auto 0.4 X10*3/uL (0.1-1.2); Monocytes Percent Auto 6.8 % (2-11); Neutrophils Absolute Auto 3.8 X10*3/uL (2.0-8.3); Neutrophils Percent Auto 59.9 % (45-73); Platelet Count 159 X10*3/uL (160-400); Red Blood Count 4.38 X10*6/uL (4.60-5.80); Red Cell Distribution Width 13.2 % (11.0-16.0); White Blood Count 6.3 X10*3/uL (4.8-10.8)
[2021-01-13 16:11] LABS: Anion Gap 12 (12-20); Blood Urea Nitrogen 21 mg/dL (9-16); Calcium 9.5 mg/dL (8.4-10.2); Carbon Dioxide 29 mmol/L (22-29); Chloride 103 mmol/L (96-108); Estimated Glomerular Filt Rate > 60; Glucose Random 269 mg/dL (60-115); Potassium 4.9 mmol/L (3.3-5.1); Sodium 139 mmol/L (135-145)
[2021-01-13 16:22] LABS: INTERNATIONAL NORM RATIO 1.1 (0.9-1.1); Prothrombin Time 12.3 SEC (9.9-13.0)
== END 2021-01-13 14:14 | disposition home or self-care (01) ==
LOC: HO.LAB 14:13
PROVIDERS: PCP Internal Medicine; Visit Provider Nurse Practitioner Family
DX: Z01.818 Encounter for other preprocedural examination (principal); I10 Essential (primary) hypertension
CPT/HCPCS: 36415; 80048; 85025; 85610

== ENCOUNTER → 2021-01-15 09:46 | Outpatient (BNVA) | payer MEDICARE, SELFPAY | PROVIDERS: PCP Internal Medicine; Visit Provider Anesthesiology | DX: M47.9 Spondylosis, unspecified (principal); M48.061 Spinal stenosis, lumbar region without neurogenic claudication; G89.4 Chronic pain syndrome | CPT/HCPCS: 99212 ==

== ENCOUNTER → 2021-01-22 10:47 | Outpatient (BNVA) | payer MEDICARE, SELFPAY | PROVIDERS: PCP Internal Medicine; Visit Provider Anesthesiology | DX: M47.9 Spondylosis, unspecified (principal); M48.061 Spinal stenosis, lumbar region without neurogenic claudication; G89.4 Chronic pain syndrome | CPT/HCPCS: 99212 ==

== ENCOUNTER → 2021-02-03 10:39 | Outpatient (BNVA) | payer MEDICARE, SELFPAY | PROVIDERS: PCP Internal Medicine; Visit Provider Anesthesiology | DX: M47.9 Spondylosis, unspecified (principal); M48.061 Spinal stenosis, lumbar region without neurogenic claudication; G89.4 Chronic pain syndrome | CPT/HCPCS: 99212 ==

== ENCOUNTER → 2021-02-10 09:44 | Outpatient (BNVA) | payer MEDICARE, SELFPAY | PROVIDERS: PCP Internal Medicine; Visit Provider Anesthesiology | DX: M47.9 Spondylosis, unspecified (principal); M48.061 Spinal stenosis, lumbar region without neurogenic claudication; G89.4 Chronic pain syndrome | CPT/HCPCS: 99212 ==

== ENCOUNTER → 2021-02-13 08:41 | Outpatient (BNVA) | payer MEDICARE, SELFPAY | PROVIDERS: PCP Internal Medicine; Visit Provider Nurse Practitioner Gerontology | DX: E11.65 Type 2 diabetes mellitus with hyperglycemia (principal); E11.42 Type 2 diabetes mellitus with diabetic polyneuropathy; E11.21 Type 2 diabetes mellitus with diabetic nephropathy; E11.22 Type 2 diabetes mellitus with diabetic chronic kidney disease; I12.9 Hypertensive chronic kidney disease with stage 1 through stage 4 chronic kidney disease, or unspecified chronic kidney disease; N18.30 Chronic kidney disease, stage 3 unspecified; E78.5 Hyperlipidemia, unspecified; E55.9 Vitamin D deficiency, unspecified; I10 Essential (primary) hypertension; Z79.4 Long term (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 insulin | CPT/HCPCS: 82947; 83036; 99212 ==

== ENCOUNTER → 2021-02-26 08:00 | Outpatient (BNVA) | payer MEDICARE, SELFPAY | PROVIDERS: PCP Internal Medicine; Visit Provider Anesthesiology | DX: Z01.818 Encounter for other preprocedural examination (principal); M47.9 Spondylosis, unspecified; M48.061 Spinal stenosis, lumbar region without neurogenic claudication; G89.4 Chronic pain syndrome; T88.8XXD Other specified complications of surgical and medical care, not elsewhere classified, subsequent encounter | CPT/HCPCS: 99212 ==

== ENCOUNTER 2021-02-28 08:28 | Outpatient (REF) | payer MEDICARE, SELFPAY ==
--- NOTE | ~2021-02-28 | US_ITS ---
EXAMINATION: US ULTRASOUND-GUIDED FINE-NEEDLE ASPIRATION CLINICAL INFORMATION: Infection along spinal stimulator leads in the back. COMPARISON: None TECHNIQUE: Procedure and risks and benefits including bleeding and infection were discussed with the patient and informed consent was obtained. The patient was positioned in the prone position. Grayscale and color imaging of the abdomen over the surgical incision was performed using a linear transducer. The back was prepped and draped in the usual sterile fashion. The skin and soft tissues were anesthetized with 1% lidocaine plain. Using ultrasound guidance and a 22-gauge needle, access to the small fluid collection to the right of the lead was obtained. Scant, less than 1 mm of purulent-appearing fluid was aspirated. Specimen was sent for Gram stain and culture. FINDINGS: There is a complex collection surrounding the stimulator leads just deep to the incision. This area measures 5.9 x 1.2 x 2.2 cm. No significant fluid component is seen. The largest area of fluid to the right of the stimulator lead was accessed for fine-needle aspiration. This measures 0.2 x 0.7 cm in AP and transverse dimension. US/US guided fine needle asp IMPRESSION: Ultrasound-guided fine-needle aspiration of complex fluid collection surrounding stimulator leads in the back.
[2021-02-28] MEDS: Lidocaine HCl 1 % MPF 5 ML VIAL SUBCUT (10:00)
== END 2021-02-28 08:29 | disposition home or self-care (01) ==
LOC: HO.US 08:28
PROVIDERS: PCP Internal Medicine; Visit Provider Anesthesiology
DX: T88.8XXA Other specified complications of surgical and medical care, not elsewhere classified, initial encounter (principal); L08.89 Other specified local infections of the skin and subcutaneous tissue; G89.4 Chronic pain syndrome; Z96.82 Presence of neurostimulator
CPT/HCPCS: 10005; 87071; 87073; 87205

== ENCOUNTER → 2021-03-10 08:00 | Outpatient (BNVA) | payer MEDICARE, SELFPAY | PROVIDERS: PCP Internal Medicine; Visit Provider Anesthesiology | DX: M47.9 Spondylosis, unspecified (principal); E11.9 Type 2 diabetes mellitus without complications; M48.061 Spinal stenosis, lumbar region without neurogenic claudication; G89.4 Chronic pain syndrome; T88.8XXD Other specified complications of surgical and medical care, not elsewhere classified, subsequent encounter | CPT/HCPCS: 99212 ==

== ENCOUNTER 2021-03-20 08:05 | Outpatient (REF) | payer MEDICARE, SELFPAY ==
[2021-03-20 11:58] LABS: MANUAL DIFF FLAG NO
[2021-03-20 12:12] LABS: Basophils Percent Auto 0.6 % (0-2); Eosinophils Absolute Auto 0.1 X10*3/uL (0.0-0.4); Eosinophils Percent Auto 1.3 % (0-4); Hematocrit 37.8 % (42.0-52.0); Hemoglobin 12.2 g/dl (14.0-18.0); Imm Gran Abs Auto 0.02 X10*3/uL (0.00-0.03); Imm Gran Pct Auto 0.3 % (0.0-0.4); Lymphocytes Absolute Auto 1.9 X10*3/uL (1.2-4.9); Lymphocytes Percent Auto 29.9 % (20-40); Mean Corpuscular HGB Conc 32.3 g/dl (31.0-36.0); Mean Corpuscular Volume 96.2 fL (80.0-98.0); Monocytes Absolute Auto 0.6 X10*3/uL (0.1-1.2); Neutrophils Absolute Auto 3.8 x10*3/uL (2.0-8.3); Neutrophils Percent Auto 58.9 % (45-73); Platelet Count 131 X10*3/uL (160-400); Red Blood Count 3.93 X10*6/uL (4.60-5.80); Red Cell Distribution Width 13.5 % (11.0-16.0); White Blood Count 6.4 X10*3/uL (4.8-10.8)
[2021-03-20 12:28] LABS: Partial Thromboplastin Time 31.6 SEC (24.1-38.0)
[2021-03-20 12:45] LABS: Alanine Aminotransferase 10 U/L (0-40); Albumin Level 3.9 g/dL (3.5-5.0); Alkaline Phosphatase 60 U/L (39-117); Anion Gap 11 (12-20); Aspartate Amino Transferase 17 U/L (5-37); Blood Urea Nitrogen 24 mg/dL (9-16); Calcium 9.3 mg/dL (8.4-10.2); Carbon Dioxide 31 mmol/L (22-29); Chloride 103 mmol/L (96-108); Estimated Glomerular Filt Rate > 60; Glucose Random 271 mg/dL (60-115); Potassium 4.4 mmol/L (3.3-5.1); Sodium 141 mmol/L (135-145); Total Protein 6.8 g/dL (6.5-8.0)
== END 2021-03-20 08:06 | disposition home or self-care (01) ==
LOC: HO.LAB 08:05
PROVIDERS: PCP Internal Medicine; Visit Provider Anesthesiology
DX: Z01.818 Encounter for other preprocedural examination (principal); G89.4 Chronic pain syndrome; M47.9 Spondylosis, unspecified; M48.061 Spinal stenosis, lumbar region without neurogenic claudication; T88.8XXD Other specified complications of surgical and medical care, not elsewhere classified, subsequent encounter
CPT/HCPCS: 36415; 80053; 85025; 85730; 99212

== ENCOUNTER → 2021-03-25 09:17 | Outpatient (BNVA) | payer MEDICARE, SELFPAY | PROVIDERS: PCP Internal Medicine; Visit Provider Nurse Practitioner Gerontology | DX: E11.65 Type 2 diabetes mellitus with hyperglycemia (principal); E11.42 Type 2 diabetes mellitus with diabetic polyneuropathy; E11.21 Type 2 diabetes mellitus with diabetic nephropathy; E11.22 Type 2 diabetes mellitus with diabetic chronic kidney disease; I12.9 Hypertensive chronic kidney disease with stage 1 through stage 4 chronic kidney disease, or unspecified chronic kidney disease; N18.30 Chronic kidney disease, stage 3 unspecified; E55.9 Vitamin D deficiency, unspecified; Z79.4 Long term (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 insulin | CPT/HCPCS: 82947; 99212 ==

== ENCOUNTER → 2021-03-27 08:03 | Outpatient (BNVA) | payer MEDICARE, SELFPAY | PROVIDERS: PCP Internal Medicine; Visit Provider Anesthesiology | DX: M47.9 Spondylosis, unspecified (principal); M48.061 Spinal stenosis, lumbar region without neurogenic claudication; G89.4 Chronic pain syndrome; T88.8XXD Other specified complications of surgical and medical care, not elsewhere classified, subsequent encounter | CPT/HCPCS: 99212 ==

== ENCOUNTER → 2021-03-31 08:41 | Outpatient (BNVA) | payer MEDICARE, SELFPAY | PROVIDERS: PCP Internal Medicine; Visit Provider Registered Nurse Diabetes Educator | DX: E11.22 Type 2 diabetes mellitus with diabetic chronic kidney disease (principal); N18.30 Chronic kidney disease, stage 3 unspecified | CPT/HCPCS: 99211 ==

== ENCOUNTER 2021-04-10 08:14 | Outpatient (REF) | payer MEDICARE, SELFPAY ==
[2021-04-10 09:12] LABS: MANUAL DIFF FLAG NO
[2021-04-10 10:04] LABS: Basophils Absolute Auto 0.1 X10*3/uL (0.0-0.2); Basophils Percent Auto 0.8 % (0-2); Eosinophils Absolute Auto 0.1 X10*3/uL (0.0-0.4); Eosinophils Percent Auto 1.3 % (0-4); Hematocrit 38.8 % (42.0-52.0); Hemoglobin 12.7 g/dl (14.0-18.0); Imm Gran Abs Auto 0.01 X10*3/uL (0.00-0.03); Imm Gran Pct Auto 0.2 % (0.0-0.4); Lymphocytes Absolute Auto 1.9 X10*3/uL (1.2-4.9); Lymphocytes Percent Auto 31.5 % (20-40); Mean Corpuscular HGB Conc 32.7 g/dl (31.0-36.0); Mean Corpuscular Hemoglobin 31.3 pg (27.0-33.0); Mean Corpuscular Volume 95.6 fL (80.0-98.0); Mean Platelet Volume 10.8 fL (9.4-12.4); Monocytes Absolute Auto 0.6 X10*3/uL (0.1-1.2); Monocytes Percent Auto 9.6 % (2-11); Neutrophils Absolute Auto 3.4 x10*3/uL (2.0-8.3); Neutrophils Percent Auto 56.6 % (45-73); Platelet Count 128 X10*3/uL (160-400); Red Blood Count 4.06 X10*6/uL (4.60-5.80); Red Cell Distribution Width 13.2 % (11.0-16.0)
[2021-04-10 10:30] LABS: Alanine Aminotransferase 15 U/L (0-40); Albumin Level 3.9 g/dL (3.5-5.0); Alkaline Phosphatase 65 U/L (39-117); Anion Gap 15 (12-20); Aspartate Amino Transferase 24 U/L (5-37); Blood Urea Nitrogen 26 mg/dL (9-16); Carbon Dioxide 28 mmol/L (22-29); Chloride 103 mmol/L (96-108); Estimated Glomerular Filt Rate > 60; Glucose Random 216 mg/dL (60-115); Potassium 4.6 mmol/L (3.3-5.1); Sodium 141 mmol/L (135-145)
== END 2021-04-10 08:15 | disposition home or self-care (01) ==
LOC: HO.LAB 08:14
PROVIDERS: PCP Internal Medicine; Visit Provider Anesthesiology
DX: Z01.818 Encounter for other preprocedural examination (principal); G89.4 Chronic pain syndrome; M47.9 Spondylosis, unspecified; M48.061 Spinal stenosis, lumbar region without neurogenic claudication; T88.8XXD Other specified complications of surgical and medical care, not elsewhere classified, subsequent encounter; Z79.2 Long term (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 antibiotics
CPT/HCPCS: 36415; 80053; 85025; 99212

== ENCOUNTER → 2021-05-01 08:28 | Outpatient (BNVA) | payer MEDICARE, SELFPAY | PROVIDERS: PCP Internal Medicine; Visit Provider Anesthesiology | DX: G89.4 Chronic pain syndrome (principal); M47.9 Spondylosis, unspecified; M48.061 Spinal stenosis, lumbar region without neurogenic claudication; T88.8XXD Other specified complications of surgical and medical care, not elsewhere classified, subsequent encounter | CPT/HCPCS: 99212 ==

== ENCOUNTER → 2021-05-26 08:45 | Outpatient (BNVA) | payer MEDICARE, SELFPAY | PROVIDERS: PCP Internal Medicine; Visit Provider Registered Nurse Diabetes Educator | DX: E11.69 Type 2 diabetes mellitus with other specified complication (principal); E78.5 Hyperlipidemia, unspecified | CPT/HCPCS: 99211 ==

== ENCOUNTER → 2021-05-29 08:05 | Outpatient (BNVA) | payer MEDICARE, SELFPAY | PROVIDERS: PCP Internal Medicine; Visit Provider Anesthesiology | DX: Z01.818 Encounter for other preprocedural examination (principal); M47.9 Spondylosis, unspecified; M48.061 Spinal stenosis, lumbar region without neurogenic claudication; G89.4 Chronic pain syndrome; T88.8XXA Other specified complications of surgical and medical care, not elsewhere classified, initial encounter; Z79.2 Long term (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 antibiotics | CPT/HCPCS: 99212 ==

== ENCOUNTER 2021-06-10 10:02 | Outpatient (REF) | payer MEDICARE, SELFPAY ==
[2021-06-10 11:28] LABS: Anion Gap 17 (12-20); Blood Urea Nitrogen 37 mg/dL (9-16); Carbon Dioxide 27 mmol/L (22-29); Chloride 91 mmol/L (96-108); Estimated Glomerular Filt Rate 38; Potassium 5.1 mmol/L (3.3-5.1); Sodium 130 mmol/L (135-145)
== END 2021-06-10 10:03 | disposition home or self-care (01) ==
LOC: HO.LAB 10:02
PROVIDERS: PCP Internal Medicine; Visit Provider Internal Medicine Nephrology
DX: N18.1 Chronic kidney disease, stage 1 (principal)
CPT/HCPCS: 36415; 80051; 82310; 82565; 84520

== ENCOUNTER 2021-06-26 08:06 | Outpatient (REF) | payer MEDICARE, SELFPAY ==
[2021-06-26 08:28] LABS: MANUAL DIFF FLAG NO
[2021-06-26 08:47] LABS: Basophils Absolute Auto 0.1 X10*3/uL (0.0-0.2); Basophils Percent Auto 1.3 % (0-2); Eosinophils Absolute Auto 0.2 X10*3/uL (0.0-0.4); Eosinophils Percent Auto 3.1 % (0-4); Hematocrit 43.7 % (42.0-52.0); Hemoglobin 13.9 g/dl (14.0-18.0); Imm Gran Abs Auto 0.02 X10*3/uL (0.00-0.03); Imm Gran Pct Auto 0.4 % (0.0-0.4); Lymphocytes Absolute Auto 2.3 X10*3/uL (1.2-4.9); Lymphocytes Percent Auto 42.1 % (20-40); Mean Corpuscular HGB Conc 31.8 g/dl (31.0-36.0); Mean Corpuscular Hemoglobin 30.3 pg (27.0-33.0); Mean Corpuscular Volume 95.4 fL (80.0-98.0); Mean Platelet Volume 9.8 fL (9.4-12.4); Monocytes Absolute Auto 0.4 X10*3/uL (0.1-1.2); Monocytes Percent Auto 7.7 % (2-11); Neutrophils Absolute Auto 2.5 x10*3/uL (2.0-8.3); Neutrophils Percent Auto 45.4 % (45-73); Platelet Count 152 X10*3/uL (160-400); Red Blood Count 4.58 X10*6/uL (4.60-5.80); White Blood Count 5.4 X10*3/uL (4.8-10.8)
[2021-06-26 09:03] LABS: Estimated Average Glucose 260 mg/dL; Hemoglobin A1c % 10.7 %
[2021-06-26 10:14] LABS: Creatinine Urine 165.63 mg/dL; Microalbum/Creatinine Ratio Ur 60.9 ug/mg cr
[2021-06-26 10:25] LABS: Ferritin 111 ng/mL (20-250); Vitamin D 25-OH Total 29.7 ng/mL (>30)
[2021-06-26 10:28] LABS: Iron 70 mcg/dL (45-160); Percent Iron Saturation 23 % (15-50); Total Iron Binding Capacity 303 mcg/dL (228-428); Unsaturated Iron Binding 233 ug/dL
[2021-06-26 10:30] LABS: Alanine Aminotransferase 8 U/L (0-40); Alkaline Phosphatase 83 U/L (39-117); Anion Gap 14 (12-20); Aspartate Amino Transferase 18 U/L (5-37); Bilirubin Total 0.9 mg/dL (0.0-1.0); Blood Urea Nitrogen 22 mg/dL (9-16); Calcium 10.2 mg/dL (8.4-10.2); Carbon Dioxide 31 mmol/L (22-29); Chloride 99 mmol/L (96-108); Cholesterol 184 mg/dL; Estimated Glomerular Filt Rate > 60; Glucose Fasting 146 mg/dL (60-99); HDL Cholesterol 58 mg/dL; LDL Cholesterol Calculated 113 mg/dl; Potassium 4.8 mmol/L (3.3-5.1); Sodium 139 mmol/L (135-145); Total Protein 7.4 g/dL (6.5-8.0); Triglycerides 67 mg/dL
[2021-06-27 16:36] LABS: LDL Cholesterol Direct 111 mg/dL (<100)
== END 2021-06-26 08:07 | disposition home or self-care (01) ==
LOC: HO.LAB 08:06
PROVIDERS: Nurse Practitioner Gerontology; Absent Provider Student in an Organized Health Care Education/Training Program; PCP Internal Medicine; Visit Provider Internal Medicine Nephrology
DX: I12.9 Hypertensive chronic kidney disease with stage 1 through stage 4 chronic kidney disease, or unspecified chronic kidney disease (principal); N18.1 Chronic kidney disease, stage 1; N17.9 Acute kidney failure, unspecified; E11.22 Type 2 diabetes mellitus with diabetic chronic kidney disease; E11.21 Type 2 diabetes mellitus with diabetic nephropathy; E55.9 Vitamin D deficiency, unspecified
CPT/HCPCS: 36415; 80053; 80061; 82043; 82306; 82550; 82728; 83036; 83540; 83721; 85025

== ENCOUNTER → 2021-07-01 08:15 | Outpatient (BNVA) | payer MEDICARE, SELFPAY | PROVIDERS: PCP Internal Medicine; Visit Provider Nurse Practitioner Gerontology | DX: E11.65 Type 2 diabetes mellitus with hyperglycemia (principal); E11.42 Type 2 diabetes mellitus with diabetic polyneuropathy; E11.21 Type 2 diabetes mellitus with diabetic nephropathy; E11.22 Type 2 diabetes mellitus with diabetic chronic kidney disease; I12.9 Hypertensive chronic kidney disease with stage 1 through stage 4 chronic kidney disease, or unspecified chronic kidney disease; N18.30 Chronic kidney disease, stage 3 unspecified; E78.5 Hyperlipidemia, unspecified; E55.9 Vitamin D deficiency, unspecified; Z79.4 Long term (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 insulin | CPT/HCPCS: 82947; Q3014 ==

== ENCOUNTER → 2021-07-24 08:20 | Outpatient (BNVA) | payer MEDICARE, SELFPAY | PROVIDERS: PCP Internal Medicine; Visit Provider Registered Nurse Diabetes Educator | DX: E11.69 Type 2 diabetes mellitus with other specified complication (principal); E78.5 Hyperlipidemia, unspecified | CPT/HCPCS: 99211 ==

== ENCOUNTER 2021-10-21 09:00 | Outpatient (RCR) | payer MEDICARE, SELFPAY ==
--- NOTE | 2021-09-18 11:44 | MHC.PT.EP ---
[facility] Office [place] Office [place] Office [address] Reynolds [address] [phone] F: [phone] F: [phone] F: [phone] F: [phone] Physical Therapy Plan of Care Date of Evaluation: Date of Surgery: Diagnosis: imbalance and poor walking. Assessment: The patient arrived reporting he has tried PT in the past but had to stop due to other medical reasons. He has back pain and poor balance. History of falls recently. He uses a rollator and a cane for AD. He seems to have decreased sense of his current limitations. 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 He will need cues to more safely use this device. We will practice static and dynamic balance exercises and standing strength exercises. Frequency and Duration: The patient will be seen 2x/week x 4 weeks. Short Term Goals: 1. Pt to static stand 2 minutes to show improved static balance. 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 The patient to be able to negotiate community obstacles such as curbs, ramps and open spaces without LOB for 100 feet. 2. For the patient to be able to functionally move in all planes and directions without provocation of dizziness to show return to PLOF. Treatment Plan: Modalities to reduce pain, spasms and effusion. Manual therapy to restore motion and function. Therapeutic exercise to improve strength and flexibility. Neuromuscular re-education for posture and balance. Therapeutic activities to return to functional activities of daily living. Electronically signed by: Sejal Gaming PT DPT Please sign and return to therapist. Thank you for your referral.
--- NOTE | 2021-11-05 14:50 | MHC.PT.DC ---
[facility] [place] Office [place] Office [place] Office [address] [phone] F: [phone] F: [phone] F: [phone] F: [phone] Physical Therapy Discharge Report Diagnosis: imbalance and poor walking. Date of Surgery: NA Date of Evaluation: 09/18/21 Date of Discharge: 11/05/21 Treatments to Date: 7 Cancellations to Date: No Shows to Date: Discharge Status: Recommend MD Follow-up Discharge Summary: Luiz was arriving to PT with significantly low BP and poor tolerance to exercise due to this. He was unable to tolerate standing for more than 30 seconds due to SOB and dizziness. He was independent with his mat exercises. He was therefore d/c from PT due to inability to progress PT due to other medical conditions. Electronically signed by: Evelia Plata PT DPT Please sign and return to therapist. Thank you for your referral.
== END 2021-11-05 14:50 | disposition home or self-care (01) ==
LOC: HO.PT 09:00
PROVIDERS: PCP Internal Medicine; Visit Provider Internal Medicine
DX: M48.061 Spinal stenosis, lumbar region without neurogenic claudication (principal)
CPT/HCPCS: 97110; 97112; 97116; 97140; 97163

== ENCOUNTER 2021-11-15 09:09 | Inpatient (IN) | payer MEDICARE, SELFPAY ==
[2021-11-15] VITALS (14 sets, daily range): BP systolic 61–121; BP diastolic 27–76; PULSE 70–88; RESP 12–18; TEMP 36.4–36.6; O2SAT 96–99; BMI 27.5
--- NOTE | 2021-11-15 | ECG_ITS ---
Test Reason : GENERAL MEDICAL Blood Pressure : / mmHG Vent. Rate : 075 BPM Atrial Rate : 075 BPM P-R Int : 000 ms QRS Dur : 118 ms QT Int : 428 ms P-R-T Axes : 027 258 030 degrees QTc Int : 477 ms Atrial sensed Ventricular-paced rhythm Abnormal ECG When compared with ECG of 23-NOV-2019 12:15, Electronic ventricular pacemaker has replaced Sinus rhythm Referred By: Estefani Chi Electronically Signed By:RAGHAV UNGER
--- NOTE | ~2021-11-15 | XR_ITS ---
EXAMINATION: XR CHEST CLINICAL INFORMATION: SOB COMPARISON: Chest 05/08/2019 TECHNIQUE: Frontal view of the chest was obtained. FINDINGS: The lungs are hypoexpanded with minimal atelectatic changes left lung base. Heart size is borderline normal. There is a left atrial appendage closure device and pacer electrodes in the right atrium and right ventricle. No gross bony abnormality seen. XR/XR chest 1V IMPRESSION: Hypoexpanded lungs with left basilar atelectasis or scarring. . No change from 05/08/2019.
--- NOTE | 2021-11-15 09:16 | ECG_ITS ---
Test Reason : CP Blood Pressure : / mmHG Vent. Rate : 088 BPM Atrial Rate : 088 BPM P-R Int : 132 ms QRS Dur : 114 ms QT Int : 398 ms P-R-T Axes : 030 249 060 degrees QTc Int : 481 ms Atrial-sensed ventricular-paced rhythm , LV pacing Abnormal ECG When compared with ECG of 23-NOV-2019 12:15, Electronic ventricular pacemaker has replaced Sinus rhythm Referred By: Estefani Chi Electronically Signed By:CHRISTIANO ROE MD
[2021-11-15 09:37] LABS: Glucose, Whole Blood 542 mg/dL (60-115)
--- NOTE | 2021-11-15 09:39 | ED.GENADULT ---
HPI - General Adult General Chief complaint: General Medical Stated complaint: possible heart issue/weakness ,cant walk Time Seen by Provider: 11/15/21 09:24 Source: patient Mode of arrival: ambulatory Limitations: no limitations History of Present Illness HPI narrative: 81 y/o male with history of DM on insulin, CAD with ischemic cardiomyopathy s/p AICD, atrial fibrillation on Xarelto, hypotension recently started on Midodrine, chronic back pain s/p spinal cord stimulator, TIA who presents to the ER for evaluation of generalized weakness that he noted this morning, to the point where he felt too weak to walk. He reports chronic gait instability and issues walking and was recently going to physical therapy for this. He reports last night he started feeling a little blah and went to bed. When he woke up he felt dizzy and nauseated. His entire body felt weak. He lives with his three grandchildren who are all at work today. He denies any fever, chills, vomiting, diarrhea, cough, or chest pain. He has had some mild COX for the last 3-4 days which is new. He saw his [facility] in the last week or so who started him on Midodrine which he took this morning. He has been compliant with all of his medications. He was also recently started on weekly Trulicity that he has not started yet. MD complaint: generalized weakness Onset (ago): hour(s) Severity: severe Pain Consistency: constant Relieving factors: rest Exacerbating factors: movement Associated symptoms: loss of appetite, malaise, shortness of breath and weakness Treatments prior to arrival: none Related Data Home Medications Medication Instructions Recorded Confirmed tamsulosin 0.4 mg capsule 0.4 mg PO DAILY 01/30/20 11/15/21 nitroglycerin 0.4 mg sublingual 0.4 mg sublingual ONCE PRN Chest 07/15/20 11/15/21 tablet Pain sacubitril 49 mg-valsartan 51 mg 1 tab PO BID 02/13/21 11/15/21 tablet (Entresto) midodrine 10 mg tablet 10 mg PO BID@0900,1700 11/04/21 11/15/21 ascorbic acid (vitamin C) 500 mg 500 mg PO DAILY 11/15/21 11/15/21 tablet cyanocobalamin (vitamin B-12) 1,000 mcg PO DAILY 11/15/21 11/15/21 1,000 mcg tablet dulaglutide 1.5 mg/0.5 mL 1.5 mg subcut VILLALTA 11/15/21 11/15/21 subcutaneous pen injector (Trulicity) insulin aspart 12 - 15 unit subcut TIDAC 11/15/21 11/15/21 (niacinamide)(U-100) 100 unit/mL(3 mL) subcutaneous pen (Fiasp FlexTouch U-100 Insulin) insulin degludec 100 unit/mL (3 30 unit subcut DAILY 11/15/21 11/15/21 mL) subcutaneous pen (Tresiba FlexTouch U-100 insulin) melatonin 10 mg tablet 20 mg PO BEDTIME PRN Sleep 11/15/21 11/15/21 multivitamin 1 tab PO DAILY 11/15/21 11/15/21 Previous Rx's Medication Instructions Recorded pen needle, diabetic 32 gauge x #400 ea 01/30/20 (BD Bianca 2nd Gen Pen Needle) cholecalciferol (vitamin D3) 50 50 mcg PO DAILY 90 days #90 caps 07/17/20 mcg (2,000 unit) capsule flash glucose sensor (FreeStyle #2 ea 07/29/20 John 14 Day Sensor kit) atorvastatin 10 mg tablet 10 mg PO DAILY 90 days #90 tabs 03/19/21 gabapentin 300 mg capsule 600 mg PO BID #180 caps 07/24/21 blood sugar diagnostic (FreeStyle #150 ea 10/10/21 Lite Strips) lancets 28 gauge (FreeStyle #200 ea 10/10/21 Lancets) Allergies Allergy/AdvReac Type Severity Reaction Status Date / Time No Known Allergies Allergy Verified 11/04/21 09:41 [No Known Allergies*] Review of Systems Review of Systems: Constitutional: No Fever, No Chills ENT/Mouth: No sore throat, No Rhinorrhea, No Swallowing Difficulty Eyes: No Eye Pain, No Swelling, No Redness Cardiovascular: No Chest Pain, No SOB, No Orthopnea, No Edema Respiratory: No Cough, No Sputum, No Wheezing, + dyspnea Gastrointestinal: + Nausea, No Vomiting, No Diarrhea, No abdominal Pain, No Hematochezia, No Melena, +Constipation Genitourinary: No Dysuria, No Urinary Frequency, No Hematuria Musculoskeletal: No joint pain, No Myalgias Skin: No Skin Lesions, No rash Neuro: + Weakness, No Numbness, +Dizziness, No Headache Psych: No Anxiety/Panic, No Depression Heme/Lymph: No Bruising, No Lymphadenopathy Endocrine: No Polyuria, No Polydipsia [facility] Past Medical History Medical History (Updated 11/15/21 @ 16:18 by SNOW Mott) BPH (benign prostatic hyperplasia) CAD (coronary artery disease) Chronic pain syndrome Chronic pain syndrome CKD stage 3 due to type 2 diabetes mellitus COVID-19 vaccine administered Diabetes type 2, uncontrolled Diabetic nephropathy associated with type 2 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 Dyslipidemia (high LDL; low HDL) Fluid collection at surgical site Hard of hearing History of anal fissures Hx of cardiomyopathy Hypertension 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 Obesity Pre-op evaluation Spinal stenosis, lumbar region without neurogenic claudication Spondylosis, unspecified TIA (transient ischemic attack) Type 2 diabetes mellitus with hyperlipidemia Vitamin D deficiency Surgical History H/O colonoscopy History of bowel resection History of cardiac defibrillator placement History of surgery Hx of cataract surgery Hx of cholecystectomy Hx of coronary artery bypass graft Hx of hernia repair Family History Family History Father Colon cancer Lung cancer Mother Diabetes Social History Social History Housing: House Alcohol intake: current Alcohol intake frequency: does not drink Patient Tobacco Use Status: Never used Tobacco e-Cigarette/Vaping Use: Never Used Second Hand Smoke Exposure: No Advance Directives: Yes Advance Directives Information Provided: Yes Advance Directives on File: No service: No Current occupational status: retired Cognitive needs: Yes Hearing needs: Yes Vision needs: Yes Physical Exam ED Vital Signs: Vital Signs - 24 hr 11/15/21 09:14 11/15/21 09:59 11/15/21 11:14 Temperature 98 F Pulse Rate 88 77 70 Respiratory Rate 18 18 14 Blood Pressure 82/40 L 71/27 L Pulse Oximetry 96 99 99 Oxygen Delivery Method Room Air Room Air Room Air 11/15/21 11:16 11/15/21 12:00 11/15/21 14:11 Temperature Pulse Rate 71 74 Respiratory Rate 18 12 Blood Pressure 96/42 L 116/68 86/50 L Pulse Oximetry 99 96 Oxygen Delivery Method Room Air Room Air 11/15/21 14:30 11/15/21 14:30 11/15/21 14:35 Temperature Pulse Rate 74 86 85 Respiratory Rate Blood Pressure 85/47 L 71/41 L 61/36 L Pulse Oximetry Oxygen Delivery Method 11/15/21 15:34 11/15/21 15:38 11/15/21 16:00 Temperature Pulse Rate 81 72 Respiratory Rate 12 14 Blood Pressure 84/41 L 90/34 L 100/76 Pulse Oximetry 98 Oxygen Delivery Method Room Air BMI result Body Mass Index 27.5 Appearance: Alert. Oriented X3. No acute distress. Eyes: Pupils equal, round and reactive to light. ENT: Pharynx normal. Neck: Normal inspection. Neck supple. CVS: Normal heart rate and rhythm. Pulses normal. Respiratory: No respiratory distress. Breath sounds normal. Abdomen: well-healed abdominal surgical scars. Soft and nontender. +BS x4 Skin: Skin warm and dry. Normal skin color. Normal skin turgor. No rashes. Extremities: No lower extremity edema. Lower extremities are warm and well perfused Neuro: Oriented X 3. nonfocal. speech is normal, cognition is normal. No motor or sensory deficit. strength equal and symmetrical throughout Course Course Course Narrative: 81-year-old male with history of brittle diabetes on insulin, chronic hypotension recently started on midodrine, ischemic cardiomyopathy status post AICD, chronic back pain with balance issues who presents to the ER with generalized weakness that started this morning. On arrival to the emergency department patient is hypotensive 82/40. He is awake and alert, not complaining of any dizziness or focal weakness. He is generally weak and feels unwell. His point of care was 542. Suspect his hypotension is acute on chronic related to dehydration and hyperglycemia. Will plan to give IV insulin, IV fluids. Will check for source of infection. Reevaluation(s) Reevaluation #1: Blood pressure cuff was changed to more appropriate size cuff and after IV fluids & dose of midodrine patient's blood pressure improved to 116/68. Lactic acid 2.3. No elevated WBC. No infiltrate on CXR to suggest PNA. Urinalysis is negative for infection. No evidence of any infection at this time. Serum glucose was 681. He received IV insulin, IV fluids and additional subcu insulin was ordered. Glucose now 460. His A1c is 12% with average glucose of 298. Reevaluation #2: Repeat lactic acid 1.9. Patient is feeling better after fluids. Orthostatic vital signs are Significantly positive. His blood pressure went from 80 systolic to 60 systolic. Upon review of his record he has history of the same. He cannot remember the numbers specifically but his blood pressure has been running low for the last 1 year. He was seen in the physical therapy office on November 05, he had significantly low blood pressure and poor tolerance to exercise due to this. he was discharged from physical therapy due to inability to progress physical therapy due to other medical conditions. Manual BP 90/34. Pending repeat dose of midodrine. Will plan to admit the patient for further evaluation and treatment. Reevaluation #3: Hospitalist recommending another liter of IVF prior to admission, BP still too low. Additional Reevaluation(s): Blood pressure 100/70 with the start of the 3 L of IV fluids. Dr. Chi to come down to evaluate the patient. Medical Decision Making Lab Data Result diagrams: 11/15/21 09:47 11/15/21 09:47 Labs: Lab Results 11/15/21 11/15/21 11/15/21 Range/Units 09:32 09:44 09:45 WBC (4.8-10.8) X10*3/uL RBC (4.60-5.80) X10*6/uL Hgb (14.0-18.0) g/dl Hct (42.0-52.0) % MCV (80.0-98.0) fL MCH (27.0-33.0) pg MCHC (31.0-36.0) g/dl RDW (11.0-16.0) % Plt Count (160-400) X10*3/uL MPV (9.4-12.4) fL Immature Gran % (Auto) (0.0-0.4) % Neut % (Auto) (45-73) % Lymph % (Auto) (20-40) % Dewitt % (Auto) (2-11) % Eos % (Auto) (0-4) % Baso % (Auto) (0-2) % Lymph # (Auto) (1.2-4.9) X10*3/uL [place] # (Auto) (0.1-1.2) X10*3/uL Eos # (Auto) (0.0-0.4) X10*3/uL Baso # (Auto) (0.0-0.2) X10*3/uL Abs Immat Gran (auto) (0.00-0.03) X10*3/uL Absolute Neuts (auto) (2.0-8.3) x10*3/uL Absolute Nucleated RBC (0.0-0.012) X10*3/uL Nucleated RBC % (auto) (0.0-0.2) /100WBC PT (10.0-13.1) SEC INR (0.9-1.1) APTT (26.0-36.4) SEC VBG pH (7.32-7.43) VBG pCO2 mmHg VBG pO2 mmHg VBG HCO3 (22-26) mmol/L VBG O2 Saturation % VBG Base Excess mmol/L Sodium (135-145) mmol/L Potassium (3.3-5.1) mmol/L Chloride (96-108) mmol/L Carbon Dioxide (22-29) mmol/L Anion Gap (12-20) BUN (9-16) mg/dL Creatinine (0.5-1.4) mg/dL Estim Creat Clear Calc Estimated GFR POC Glucose 542 H* (60-115) mg/dL Random Glucose (60-115) mg/dL Estimat Average Glucose mg/dL Hemoglobin A1c % % Lactic Acid 2.3 H* (0.5-2.0) mmol/L Lactic Acid F/U @ 2Hr (0.5-2.0) mmol/L Calcium (8.4-10.2) mg/dL Magnesium (1.6-2.6) mg/dL Total Bilirubin (0.0-1.0) mg/dL Direct Bilirubin (0.0-0.5) mg/dL AST (5-37) U/L ALT (0-40) U/L Alkaline Phosphatase (39-117) U/L Troponin I High Sens (<3.5-35.0) ng/L B-Natriuretic Peptide (<100) pg/mL Total Protein (6.5-8.0) g/dL Albumin (3.5-5.0) g/dL Urine Color Urine Appearance Urine pH (5.0-8.0) Ur Specific [place] (1.005-1.025) Urine Protein (NEG-TRACE) MG/DL Urine Glucose (UA) (NEG) MG/DL Urine Ketones (NEG) MG/DL Urine Blood (NEG) Urine Nitrite (NEG) Ur Leukocyte Esterase (NEG) Urine RBC (0) /HPF Urine WBC (0-4) /HPF Ur Squamous Epith Cells /LPF Urine Bacteria /LPF Acetone, Qual (Negative) COVID-19 (ERIS) Negative (Negative) COVID-19 Clin Com See Note 11/15/21 11/15/21 11/15/21 Range/Units 09:47 09:47 09:47 WBC 5.0 (4.8-10.8) X10*3/uL RBC 3.99 L (4.60-5.80) X10*6/uL Hgb 12.2 L (14.0-18.0) g/dl Hct 37.1 L (42.0-52.0) % MCV 93.0 (80.0-98.0) fL MCH 30.6 (27.0-33.0) pg MCHC 32.9 (31.0-36.0) g/dl RDW 13.2 (11.0-16.0) % Plt Count 110 L D (160-400) X10*3/uL MPV 10.9 (9.4-12.4) fL Immature Gran % (Auto) 0.2 (0.0-0.4) % Neut % (Auto) 61.1 (45-73) % Lymph % (Auto) 28.6 (20-40) % Dewitt % (Auto) 7.9 (2-11) % Eos % (Auto) 1.2 (0-4) % Baso % (Auto) 1.0 (0-2) % Lymph # (Auto) 1.4 (1.2-4.9) X10*3/uL [place] # (Auto) 0.4 (0.1-1.2) X10*3/uL Eos # (Auto) 0.1 (0.0-0.4) X10*3/uL Baso # (Auto) 0.1 (0.0-0.2) X10*3/uL Abs Immat Gran (auto) 0.01 (0.00-0.03) X10*3/uL Absolute Neuts (auto) 3.0 (2.0-8.3) x10*3/uL Absolute Nucleated RBC 0.000 (0.0-0.012) X10*3/uL Nucleated RBC % (auto) 0.0 (0.0-0.2) /100WBC PT 11.6 (10.0-13.1) SEC INR 1.0 (0.9-1.1) APTT 26.9 (26.0-36.4) SEC VBG pH (7.32-7.43) VBG pCO2 mmHg VBG pO2 mmHg VBG HCO3 (22-26) mmol/L VBG O2 Saturation % VBG Base Excess mmol/L Sodium 135 (135-145) mmol/L Potassium 4.9 (3.3-5.1) mmol/L Chloride 97 (96-108) mmol/L Carbon Dioxide 28 (22-29) mmol/L Anion Gap 15 (12-20) BUN 43 H D (9-16) mg/dL Creatinine 1.68 H (0.5-1.4) mg/dL Estim Creat Clear Calc 35.6 Estimated GFR 39 POC Glucose (60-115) mg/dL Random Glucose 681 H* (60-115) mg/dL Estimat Average Glucose mg/dL Hemoglobin A1c % % Lactic Acid (0.5-2.0) mmol/L Lactic Acid F/U @ 2Hr (0.5-2.0) mmol/L Calcium 9.0 D (8.4-10.2) mg/dL Magnesium 1.9 (1.6-2.6) mg/dL Total Bilirubin 0.6 (0.0-1.0) mg/dL Direct Bilirubin 0.3 (0.0-0.5) mg/dL AST 14 (5-37) U/L ALT 10 (0-40) U/L Alkaline Phosphatase 62 D (39-117) U/L Troponin I High Sens (<3.5-35.0) ng/L B-Natriuretic Peptide (<100) pg/mL Total Protein 6.5 (6.5-8.0) g/dL Albumin 3.7 (3.5-5.0) g/dL Urine Color Urine Appearance Urine pH (5.0-8.0) Ur Specific [place] (1.005-1.025) Urine Protein (NEG-TRACE) MG/DL Urine Glucose (UA) (NEG) MG/DL Urine Ketones (NEG) MG/DL Urine Blood (NEG) Urine Nitrite (NEG) Ur Leukocyte Esterase (NEG) Urine RBC (0) /HPF Urine WBC (0-4) /HPF Ur Squamous Epith Cells /LPF Urine Bacteria /LPF Acetone, Qual (Negative) COVID-19 (ERIS) (Negative) COVID-19 Clin Com 11/15/21 11/15/21 11/15/21 Range/Units 09:47 09:47 09:47 WBC (4.8-10.8) X10*3/uL RBC (4.60-5.80) X10*6/uL Hgb (14.0-18.0) g/dl Hct (42.0-52.0) % MCV (80.0-98.0) fL MCH (27.0-33.0) pg MCHC (31.0-36.0) g/dl RDW (11.0-16.0) % Plt Count (160-400) X10*3/uL MPV (9.4-12.4) fL Immature Gran % (Auto) (0.0-0.4) % Neut % (Auto) (45-73) % Lymph % (Auto) (20-40) % [place] % (Auto) (2-11) % Eos % (Auto) (0-4) % Baso % (Auto) (0-2) % Lymph # (Auto) (1.2-4.9) X10*3/uL [place] # (Auto) (0.1-1.2) X10*3/uL Eos # (Auto) (0.0-0.4) X10*3/uL Baso # (Auto) (0.0-0.2) X10*3/uL Abs Immat Gran (auto) (0.00-0.03) X10*3/uL Absolute Neuts (auto) (2.0-8.3) x10*3/uL Absolute Nucleated RBC (0.0-0.012) X10*3/uL Nucleated RBC % (auto) (0.0-0.2) /100WBC PT (10.0-13.1) SEC INR (0.9-1.1) APTT (26.0-36.4) SEC VBG pH (7.32-7.43) VBG pCO2 mmHg VBG pO2 mmHg VBG HCO3 (22-26) mmol/L VBG O2 Saturation % VBG Base Excess mmol/L Sodium (135-145) mmol/L Potassium (3.3-5.1) mmol/L Chloride (96-108) mmol/L Carbon Dioxide (22-29) mmol/L Anion Gap (12-20) BUN (9-16) mg/dL Creatinine (0.5-1.4) mg/dL Estim Creat Clear Calc Estimated GFR POC Glucose (60-115) mg/dL Random Glucose (60-115) mg/dL Estimat Average Glucose mg/dL Hemoglobin A1c % % Lactic Acid (0.5-2.0) mmol/L Lactic Acid F/U @ 2Hr (0.5-2.0) mmol/L Calcium (8.4-10.2) mg/dL Magnesium (1.6-2.6) mg/dL Total Bilirubin (0.0-1.0) mg/dL Direct Bilirubin (0.0-0.5) mg/dL AST (5-37) U/L ALT (0-40) U/L Alkaline Phosphatase (39-117) U/L Troponin I High Sens 5.5 (<3.5-35.0) ng/L B-Natriuretic Peptide 267 H (<100) pg/mL Total Protein (6.5-8.0) g/dL Albumin (3.5-5.0) g/dL Urine Color Urine Appearance Urine pH (5.0-8.0) Ur Specific [place] (1.005-1.025) Urine Protein (NEG-TRACE) MG/DL Urine Glucose (UA) (NEG) MG/DL Urine Ketones (NEG) MG/DL Urine Blood (NEG) Urine Nitrite (NEG) Ur Leukocyte Esterase (NEG) Urine RBC (0) /HPF Urine WBC (0-4) /HPF Ur Squamous Epith Cells /LPF Urine Bacteria /LPF Acetone, Qual Negative (Negative) COVID-19 (ERIS) (Negative) COVID-19 Clin Com 11/15/21 11/15/21 11/15/21 Range/Units 09:47 09:50 10:54 WBC (4.8-10.8) X10*3/uL RBC (4.60-5.80) X10*6/uL Hgb (14.0-18.0) g/dl Hct (42.0-52.0) % MCV (80.0-98.0) fL MCH (27.0-33.0) pg MCHC (31.0-36.0) g/dl RDW (11.0-16.0) % Plt Count (160-400) X10*3/uL MPV (9.4-12.4) fL Immature Gran % (Auto) (0.0-0.4) % Neut % (Auto) (45-73) % Lymph % (Auto) (20-40) % [place] % (Auto) (2-11) % Eos % (Auto) (0-4) % Baso % (Auto) (0-2) % Lymph # (Auto) (1.2-4.9) X10*3/uL [place] # (Auto) (0.1-1.2) X10*3/uL Eos # (Auto) (0.0-0.4) X10*3/uL Baso # (Auto) (0.0-0.2) X10*3/uL Abs Immat Gran (auto) (0.00-0.03) X10*3/uL Absolute Neuts (auto) (2.0-8.3) x10*3/uL Absolute Nucleated RBC (0.0-0.012) X10*3/uL Nucleated RBC % (auto) (0.0-0.2) /100WBC PT (10.0-13.1) SEC INR (0.9-1.1) APTT (26.0-36.4) SEC VBG pH 7.35 (7.32-7.43) VBG pCO2 54 mmHg VBG pO2 37 mmHg VBG HCO3 30 H (22-26) mmol/L VBG O2 Saturation 58.0 % VBG Base Excess 3.8 mmol/L Sodium (135-145) mmol/L Potassium (3.3-5.1) mmol/L Chloride (96-108) mmol/L Carbon Dioxide (22-29) mmol/L Anion Gap (12-20) BUN (9-16) mg/dL Creatinine (0.5-1.4) mg/dL Estim Creat Clear Calc Estimated GFR POC Glucose 463 H* (60-115) mg/dL Random Glucose (60-115) mg/dL Estimat Average Glucose 298 mg/dL Hemoglobin A1c % 12.0 % Lactic Acid (0.5-2.0) mmol/L Lactic Acid F/U @ 2Hr (0.5-2.0) mmol/L Calcium (8.4-10.2) mg/dL Magnesium (1.6-2.6) mg/dL Total Bilirubin (0.0-1.0) mg/dL Direct Bilirubin (0.0-0.5) mg/dL AST (5-37) U/L ALT (0-40) U/L Alkaline Phosphatase (39-117) U/L Troponin I High Sens (<3.5-35.0) ng/L B-Natriuretic Peptide (<100) pg/mL Total Protein (6.5-8.0) g/dL Albumin (3.5-5.0) g/dL Urine Color Urine Appearance Urine pH (5.0-8.0) Ur Specific [place] (1.005-1.025) Urine Protein (NEG-TRACE) MG/DL Urine Glucose (UA) (NEG) MG/DL Urine Ketones (NEG) MG/DL Urine Blood (NEG) Urine Nitrite (NEG) Ur Leukocyte Esterase (NEG) Urine RBC (0) /HPF Urine WBC (0-4) /HPF Ur Squamous Epith Cells /LPF Urine Bacteria /LPF Acetone, Qual (Negative) COVID-19 (ERIS) (Negative) COVID-19 Clin Com 11/15/21 11/15/21 11/15/21 Range/Units 12:33 12:34 15:54 WBC (4.8-10.8) X10*3/uL RBC (4.60-5.80) X10*6/uL Hgb (14.0-18.0) g/dl Hct (42.0-52.0) % MCV (80.0-98.0) fL MCH (27.0-33.0) pg MCHC (31.0-36.0) g/dl RDW (11.0-16.0) % Plt Count (160-400) X10*3/uL MPV (9.4-12.4) fL Immature Gran % (Auto) (0.0-0.4) % Neut % (Auto) (45-73) % Lymph % (Auto) (20-40) % [place] % (Auto) (2-11) % Eos % (Auto) (0-4) % Baso % (Auto) (0-2) % Lymph # (Auto) (1.2-4.9) X10*3/uL [place] # (Auto) (0.1-1.2) X10*3/uL Eos # (Auto) (0.0-0.4) X10*3/uL Baso # (Auto) (0.0-0.2) X10*3/uL Abs Immat Gran (auto) (0.00-0.03) X10*3/uL Absolute Neuts (auto) (2.0-8.3) x10*3/uL Absolute Nucleated RBC (0.0-0.012) X10*3/uL Nucleated RBC % (auto) (0.0-0.2) /100WBC PT (10.0-13.1) SEC INR (0.9-1.1) APTT (26.0-36.4) SEC VBG pH (7.32-7.43) VBG pCO2 mmHg VBG pO2 mmHg VBG HCO3 (22-26) mmol/L VBG O2 Saturation % VBG Base Excess mmol/L Sodium (135-145) mmol/L Potassium (3.3-5.1) mmol/L Chloride (96-108) mmol/L Carbon Dioxide (22-29) mmol/L Anion Gap (12-20) BUN (9-16) mg/dL Creatinine (0.5-1.4) mg/dL Estim Creat Clear Calc Estimated GFR POC Glucose 196 H (60-115) mg/dL Random Glucose (60-115) mg/dL Estimat Average Glucose mg/dL Hemoglobin A1c % % Lactic Acid (0.5-2.0) mmol/L Lactic Acid F/U @ 2Hr 1.9 (0.5-2.0) mmol/L Calcium (8.4-10.2) mg/dL Magnesium (1.6-2.6) mg/dL Total Bilirubin (0.0-1.0) mg/dL Direct Bilirubin (0.0-0.5) mg/dL AST (5-37) U/L ALT (0-40) U/L Alkaline Phosphatase (39-117) U/L Troponin I High Sens (<3.5-35.0) ng/L B-Natriuretic Peptide (<100) pg/mL Total Protein (6.5-8.0) g/dL Albumin (3.5-5.0) g/dL Urine Color YELLOW Urine Appearance HAZY Urine pH 5.5 (5.0-8.0) Ur Specific [place] 1.015 (1.005-1.025) Urine Protein NEG (NEG-TRACE) MG/DL Urine Glucose (UA) >=1000 H (NEG) MG/DL Urine Ketones NEG (NEG) MG/DL Urine Blood NEG (NEG) Urine Nitrite NEG (NEG) Ur Leukocyte Esterase NEG (NEG) Urine RBC 0-2 (0) /HPF Urine WBC 0-2 (0-4) /HPF Ur Squamous Epith Cells TRACE /LPF Urine Bacteria NONE /LPF Acetone, Qual (Negative) COVID-19 (ERIS) (Negative) COVID-19 Clin Com ECG Data Attestation: I personally reviewed and interpreted this ECG as follows: Prior ECG tracings: available for review Interpretation: atrial paced rhythm, HR 88 bpm, No ST segment elevations or depression, no significant change from prior 12/2020 Critical Care Time Critical Care Time Critical Care Time: Yes Total Critical Care Time: 44 Attestation: I have personally provided critical care time exclusive of time spent on separately billable procedures. Time includes review of lab data, radiology results, frequent bedside reassessment, and monitoring for potential decompensation. Intervention performed as documented. Discharge Plan Discharge Clinical Impression: Orthostatic hypotension, Poorly controlled diabetes mellitus, Hyperglycemia, NEY (acute kidney injury) Patient Disposition: Admitted As Inpatient Prescriptions: No Action cholecalciferol (vitamin D3) 50 mcg (2,000 unit) capsule 50 mcg PO DAILY 90 Days Qty: 90 2RF (DME) FreeStyle John 14 Day Sensor Kit See Rx Instructions .ROUTE .MEDSUPPLY Qty: 2 11RF Rx Instructions: every 14 days atorvastatin 10 mg tablet 10 mg PO DAILY 90 Days Qty: 90 1RF gabapentin 300 mg capsule 600 mg PO BID Qty: 180 8RF (DME) FreeStyle Lite Strips Strip See Rx Instructions .ROUTE .MEDSUPPLY Qty: 150 11RF Rx Instructions: As directed four times a day (DME) lancets [FreeStyle Lancets] 28 gauge misc See Rx Instructions .ROUTE .MEDSUPPLY Qty: 200 11RF Rx Instructions: 4 times a day multivitamin Tablet 1 tab PO DAILY cyanocobalamin (vitamin B-12) 1,000 mcg Tablet 1,000 mcg PO DAILY ascorbic acid (vitamin C) 500 mg Tablet 500 mg PO DAILY melatonin 10 mg Tablet 20 mg PO BEDTIME PRN (Reason: Sleep) Tresiba FlexTouch U-100 100 unit/mL (3 mL) insulin pen 30 unit subcut DAILY Trulicity 1.5 mg/0.5 mL pen injector 1.5 mg subcut VILLALTA Fiasp FlexTouch U-100 Insulin 100 unit/mL (3 mL) insulin pen 12 - 15 unit subcut TIDAC midodrine 10 mg tablet 10 mg PO BID@0900,1700 Rx Instructions: do not give last dose of day after 6PM or within 4 hrs of bedtime tamsulosin 0.4 mg capsule 0.4 mg PO DAILY (DME) pen needle, diabetic [BD Bianca 2nd Gen Pen Needle] 32 gauge x 5/32 needle See Rx Instructions .ROUTE .MEDSUPPLY Qty: 400 4RF Rx Instructions: 5 times a day nitroglycerin 0.4 mg tablet, sublingual 0.4 mg sublingual ONCE PRN (Reason: Chest Pain) Entresto 49-51 mg tablet 1 tab PO BID
[2021-11-15 09:54] LABS: MANUAL DIFF FLAG NO
[2021-11-15 09:56] LABS: Basophils Absolute Auto 0.1 X10*3/uL (0.0-0.2); Eosinophils Absolute Auto 0.1 X10*3/uL (0.0-0.4); Eosinophils Percent Auto 1.2 % (0-4); Hematocrit 37.1 % (42.0-52.0); Hemoglobin 12.2 g/dl (14.0-18.0); Imm Gran Abs Auto 0.01 X10*3/uL (0.00-0.03); Imm Gran Pct Auto 0.2 % (0.0-0.4); Lymphocytes Absolute Auto 1.4 X10*3/uL (1.2-4.9); Lymphocytes Percent Auto 28.6 % (20-40); Mean Corpuscular HGB Conc 32.9 g/dl (31.0-36.0); Mean Corpuscular Hemoglobin 30.6 pg (27.0-33.0); Mean Platelet Volume 10.9 fL (9.4-12.4); Monocytes Absolute Auto 0.4 X10*3/uL (0.1-1.2); Monocytes Percent Auto 7.9 % (2-11); Neutrophils Percent Auto 61.1 % (45-73); Platelet Count 110 X10*3/uL (160-400); Red Blood Count 3.99 X10*6/uL (4.60-5.80); Red Cell Distribution Width 13.2 % (11.0-16.0)
[2021-11-15] MEDS: Insulin Regular, Human 100 UNIT/ML 3 ML VIAL IVPUSH (09:57)
[2021-11-15 09:59] LABS: VBG Base Excess 3.8 mmol/L; VBG HCO3 30 mmol/L (22-26); VBG pCO2 54 mmHg; VBG pH 7.35 (7.32-7.43); VBG pO2 37 mmHg
[2021-11-15 10:03] LABS: Prothrombin Time 11.6 SEC (10.0-13.1)
[2021-11-15 10:05] LABS: Partial Thromboplastin Time 26.9 SEC (26.0-36.4)
[2021-11-15 10:06] LABS: Venous Blood Gas Refer to POC result
[2021-11-15 10:10] LABS: Lactic Acid 2.3 mmol/L (0.5-2.0)
[2021-11-15 10:11] LABS: Acetone, serum QL Negative (Negative)
[2021-11-15 10:15] LABS: COVID-19 Test Negative (Negative); IDNOW Serial# 08D9AD1C
[2021-11-15 10:18] LABS: B Type Natriuretic Peptide 267 pg/mL (<100); Troponin-I High Sensitivity 5.5 ng/L (<3.5-35.0)
[2021-11-15 10:21] LABS: Alanine Aminotransferase 10 U/L (0-40); Albumin Level 3.7 g/dL (3.5-5.0); Alkaline Phosphatase 62 U/L (39-117); Anion Gap 15 (12-20); Aspartate Amino Transferase 14 U/L (5-37); Bilirubin Direct 0.3 mg/dL (0.0-0.5); Bilirubin Total 0.6 mg/dL (0.0-1.0); Blood Urea Nitrogen 43 mg/dL (9-16); Carbon Dioxide 28 mmol/L (22-29); Chloride 97 mmol/L (96-108); Creatinine Clr Calc Pharmacy 35.6; Estimated Glomerular Filt Rate 39; Glucose Random 681 mg/dL (60-115); Magnesium 1.9 mg/dL (1.6-2.6); Potassium 4.9 mmol/L (3.3-5.1); Sodium 135 mmol/L (135-145); Total Protein 6.5 g/dL (6.5-8.0)
[2021-11-15 10:58] LABS: Glucose, Whole Blood 463 mg/dL (60-115)
[2021-11-15] MEDS: 0.9 % Sodium Chloride 1,000 ML 999 ML IVCONT ×3 (11:11→16:40)
[2021-11-15] MEDS: Midodrine HCl 10 MG TABLET PO (11:16)
[2021-11-15 11:52] LABS: Reflex Lactate? Lactic Acid Added
[2021-11-15 11:54] LABS: Estimated Average Glucose 298 mg/dL
[2021-11-15] MEDS: Insulin Lispro 100 UNIT/ML 3 ML VIAL 15 UNIT SUBCUT (12:32)
[2021-11-15 12:45] LABS: Appearance Urine HAZY; Color Urine YELLOW; Glucose Urine UA >=1000 MG/DL (NEG); Leukocyte Esterase Urine NEG (NEG); Nitrite Urine NEG (NEG); PH 5.5 (5.0-8.0); Specific Gravity - Urine 1.015 (1.005-1.025); Urine Blood NEG (NEG); Urine Ketones NEG (NEG); Urine Protein NEG (NEG-TRACE)
[2021-11-15 12:52] LABS: ~Lactic Acid-LAB USE ONLY 1.9 mmol/L (0.5-2.0)
[2021-11-15 12:52] LABS: RBC Urine 0-2 /HPF (0); Squamous Epithelial Cell Urine TRACE /LPF; WBC Urine 0-2 /HPF (0-4)
[2021-11-15] MEDS: Midodrine HCl 10 MG TABLET 20 MG PO (15:34)
[2021-11-15 15:59] LABS: Glucose, Whole Blood 196 mg/dL (60-115)
--- NOTE | 2021-11-15 16:47 | PHA.MEDREC ---
Pharmacy Consult ? Medication Reconciliation Pharmacy has completed the medication reconciliation. Pt self admittedly is not good about taking his atorvastatin and tamsulosin. Also noted that he has an implant in his back for pain but was unsure of exact details.
--- NOTE | 2021-11-15 17:44 | P.HPHOSP_ITS ---
History of Present Illness Date of Service: 11/15/21 Chief Complaint: Weakness An 81 years old male with PMH of diabetes, CMP post AICD, postural hypotension, chronic back pain among others who presents to the hospital with worsening generalized weakness. The patient reported that he has been feeling of for the last 2 days but this morning he felt too weak to walk. He is mainly active using her walker or a cane to ambulate around. Still driving. Gets out and meet with friends at least once a day. This morning he felt he has no energy and he was back home by himself so he got worried and decided to drive himself to the hospital. He reports that he is feeling dizzy upon standing up and weak to ambulate. Denies any chest pain, palpitation, shortness of breath, nausea, vomiting, change in bowel habit or urinary symptoms. 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 In the emergency he was found to have hyperglycemia of above 600 associated with acute kidney injury and significantly low blood pressure readings. Responded partially to IV fluid and midodrine. Will be admitted for further evaluation and treatment. Review of Systems Review of Systems: No fever, chills but reports feeling weakness No chest pain, palpitation No shortness of breath or coughing No abdominal pain, nausea or vomiting No urinary symptoms No any rash or wounds [facility] Medical History BPH (benign prostatic hyperplasia) CAD (coronary artery disease) Chronic pain syndrome Chronic pain syndrome CKD stage 3 due to type 2 diabetes mellitus COVID-19 vaccine administered Diabetes type 2, uncontrolled Diabetic nephropathy associated with type 2 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 Dyslipidemia (high LDL; low HDL) Fluid collection at surgical site Hard of hearing History of anal fissures Hx of cardiomyopathy Hypertension 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 Obesity Pre-op evaluation Spinal stenosis, lumbar region without neurogenic claudication Spondylosis, unspecified TIA (transient ischemic attack) Type 2 diabetes mellitus with hyperlipidemia Vitamin D deficiency Family History Father Colon cancer Lung cancer Mother Diabetes Surgical History H/O colonoscopy History of bowel resection History of cardiac defibrillator placement History of surgery Hx of cataract surgery Hx of cholecystectomy Hx of coronary artery bypass graft Hx of hernia repair Social History Housing: House Alcohol intake: current Alcohol intake frequency: does not drink Patient Tobacco Use Status: Never used Tobacco e-Cigarette/Vaping Use: Never Used Second Hand Smoke Exposure: No Advance Directives: Yes Advance Directives Information Provided: Yes Advance Directives on File: No service: No Current occupational status: retired Cognitive needs: Yes Hearing needs: Yes Vision needs: Yes Meds Allergies Allergy/AdvReac Type Severity Reaction Status Date / Time No Known Allergies Allergy Verified 11/04/21 09:41 [No Known Allergies*] Active Medications: Current Medications Pharmacy Consult (Consult Rx Perform Med Rec) 1 each MISCELLANE ONCE PRN PRN Reason: Consult order Home Medications Medication Instructions Recorded Confirmed Last Taken Type tamsulosin 0.4 mg capsule 0.4 mg PO DAILY 01/30/20 11/15/21 11/15/21 History nitroglycerin 0.4 mg sublingual 0.4 mg sublingual ONCE PRN Chest 07/15/20 11/15/21 Unknown History tablet Pain sacubitril 49 mg-valsartan 51 mg 1 tab PO BID 02/13/21 11/15/21 11/15/21 History tablet (Entresto) midodrine 10 mg tablet 10 mg PO BID@0900,1700 11/04/21 11/15/21 11/15/21 History ascorbic acid (vitamin C) 500 mg 500 mg PO DAILY 11/15/21 11/15/21 11/15/21 History tablet cyanocobalamin (vitamin B-12) 1,000 mcg PO DAILY 11/15/21 11/15/21 11/15/21 History 1,000 mcg tablet dulaglutide 1.5 mg/0.5 mL 1.5 mg subcut VILLALTA 11/15/21 11/15/21 Unknown History subcutaneous pen injector (Trulicity) insulin aspart 12 - 15 unit subcut TIDAC 11/15/21 11/15/21 11/15/21 History (niacinamide)(U-100) 100 unit/mL(3 mL) subcutaneous pen (Fiasp FlexTouch U-100 Insulin) insulin degludec 100 unit/mL (3 30 unit subcut DAILY 11/15/21 11/15/21 11/15/21 History mL) subcutaneous pen (Tresiba FlexTouch U-100 insulin) melatonin 10 mg tablet 20 mg PO BEDTIME PRN Sleep 11/15/21 11/15/21 Unknown History multivitamin 1 tab PO DAILY 11/15/21 11/15/21 11/15/21 History Physical Exam Vital Signs and Narrative: Vital Signs: Last Vital Signs Temp 98 F 11/15/21 09:14 Pulse 71 11/15/21 17:25 Resp 12 11/15/21 17:25 BP 95/44 L 11/15/21 17:25 Pulse Ox 99 11/15/21 17:25 O2 Del Method 11/15/21 17:25 BMI result Body Mass Index 27.5 Const: Other: Constitutional : Alert, oriented, not in distress Neck : Normal inspection, Supple Cardiovascular : RRR, no JVP, no lower extremity edema Respiratory : fair bilateral air entry, no crackles, wheezes or rhonchi Gastrointestinal: soft, lax, Normal bowel sounds, Non tender Skin : Warm, Dry Neurological : Alert & oriented x3, No focal deficit , CN 2-12 within normal Results Labs CBC and Chem 7: 11/15/21 09:47 11/15/21 09:47 Labs: Laboratory Results - last 24 hr 11/15/21 11/15/21 11/15/21 09:32 09:44 09:45 MCV MCH MCHC RDW Plt Count MPV Immature Gran % (Auto) Neut % (Auto) Lymph % (Auto) [place] % (Auto) Eos % (Auto) Baso % (Auto) Lymph # (Auto) [place] # (Auto) Eos # (Auto) Baso # (Auto) Abs Immat Gran (auto) Absolute Neuts (auto) Absolute Nucleated RBC Nucleated RBC % (auto) PT INR APTT VBG pH VBG pCO2 VBG pO2 VBG HCO3 VBG O2 Saturation VBG Base Excess Anion Gap Estim Creat Clear Calc Estimated GFR POC Glucose 542 H* Random Glucose Estimat Average Glucose Hemoglobin A1c % Lactic Acid 2.3 H* Lactic Acid F/U @ 2Hr Calcium Magnesium Total Bilirubin Direct Bilirubin AST ALT Alkaline Phosphatase B-Natriuretic Peptide Total Protein Albumin Urine Color Urine Appearance Urine pH Ur Specific [place] Urine Protein Urine Glucose (UA) Urine Ketones Urine Blood Urine Nitrite Ur Leukocyte Esterase Urine RBC Urine WBC Ur Squamous Epith Cells Urine Bacteria Acetone, Qual COVID-19 ([facility]) Negative COVID-19 Clin Com See Note 11/15/21 11/15/21 11/15/21 09:47 09:47 09:47 MCV 93.0 MCH 30.6 MCHC 32.9 RDW 13.2 Plt Count 110 L D MPV 10.9 Immature Gran % (Auto) 0.2 Neut % (Auto) 61.1 Lymph % (Auto) 28.6 [place] % (Auto) 7.9 Eos % (Auto) 1.2 Baso % (Auto) 1.0 Lymph # (Auto) 1.4 [place] # (Auto) 0.4 Eos # (Auto) 0.1 Baso # (Auto) 0.1 Abs Immat Gran (auto) 0.01 Absolute Neuts (auto) 3.0 Absolute Nucleated RBC 0.000 Nucleated RBC % (auto) 0.0 PT 11.6 INR 1.0 APTT 26.9 VBG pH VBG pCO2 VBG pO2 VBG HCO3 VBG O2 Saturation VBG Base Excess Anion Gap 15 Estim Creat Clear Calc 35.6 Estimated GFR 39 POC Glucose Random Glucose 681 H* Estimat Average Glucose Hemoglobin A1c % Lactic Acid Lactic Acid F/U @ 2Hr Calcium 9.0 D Magnesium 1.9 Total Bilirubin 0.6 Direct Bilirubin 0.3 AST 14 ALT 10 Alkaline Phosphatase 62 D B-Natriuretic Peptide Total Protein 6.5 Albumin 3.7 Urine Color Urine Appearance Urine pH Ur Specific [place] Urine Protein Urine Glucose (UA) Urine Ketones Urine Blood Urine Nitrite Ur Leukocyte Esterase Urine RBC Urine WBC Ur Squamous Epith Cells Urine Bacteria Acetone, Qual COVID-19 ([facility]) COVID-19 Clin Com 11/15/21 11/15/21 11/15/21 09:47 09:47 09:47 MCV MCH MCHC RDW Plt Count MPV Immature Gran % (Auto) Neut % (Auto) Lymph % (Auto) [place] % (Auto) Eos % (Auto) Baso % (Auto) Lymph # (Auto) [place] # (Auto) Eos # (Auto) Baso # (Auto) Abs Immat Gran (auto) Absolute Neuts (auto) Absolute Nucleated RBC Nucleated RBC % (auto) PT INR APTT VBG pH VBG pCO2 VBG pO2 VBG HCO3 VBG O2 Saturation VBG Base Excess Anion Gap Estim Creat Clear Calc Estimated GFR POC Glucose Random Glucose Estimat Average Glucose 298 Hemoglobin A1c % 12.0 Lactic Acid Lactic Acid F/U @ 2Hr Calcium Magnesium Total Bilirubin Direct Bilirubin AST ALT Alkaline Phosphatase B-Natriuretic Peptide 267 H Total Protein Albumin Urine Color Urine Appearance Urine pH Ur Specific [place] Urine Protein Urine Glucose (UA) Urine Ketones Urine Blood Urine Nitrite Ur Leukocyte Esterase Urine RBC Urine WBC Ur Squamous Epith Cells Urine Bacteria Acetone, Qual Negative COVID-19 ([facility]) COVID-19 Clin Com 11/15/21 11/15/21 11/15/21 09:50 10:54 12:33 MCV MCH MCHC RDW Plt Count MPV Immature Gran % (Auto) Neut % (Auto) Lymph % (Auto) [place] % (Auto) Eos % (Auto) Baso % (Auto) Lymph # (Auto) [place] # (Auto) Eos # (Auto) Baso # (Auto) Abs Immat Gran (auto) Absolute Neuts (auto) Absolute Nucleated RBC Nucleated RBC % (auto) PT INR APTT VBG pH 7.35 VBG pCO2 54 VBG pO2 37 VBG HCO3 30 H VBG O2 Saturation 58.0 VBG Base Excess 3.8 Anion Gap Estim Creat Clear Calc Estimated GFR POC Glucose 463 H* Random Glucose Estimat Average Glucose Hemoglobin A1c % Lactic Acid Lactic Acid F/U @ 2Hr 1.9 Calcium Magnesium Total Bilirubin Direct Bilirubin AST ALT Alkaline Phosphatase B-Natriuretic Peptide Total Protein Albumin Urine Color Urine Appearance Urine pH Ur Specific [place] Urine Protein Urine Glucose (UA) Urine Ketones Urine Blood Urine Nitrite Ur Leukocyte Esterase Urine RBC Urine WBC Ur Squamous Epith Cells Urine Bacteria Acetone, Qual COVID-19 ([facility]) COVID-19 Clin Com 11/15/21 11/15/21 12:34 15:54 MCV MCH MCHC RDW Plt Count MPV Immature Gran % (Auto) Neut % (Auto) Lymph % (Auto) [place] % (Auto) Eos % (Auto) Baso % (Auto) Lymph # (Auto) [place] # (Auto) Eos # (Auto) Baso # (Auto) Abs Immat Gran (auto) Absolute Neuts (auto) Absolute Nucleated RBC Nucleated RBC % (auto) PT INR APTT VBG pH VBG pCO2 VBG pO2 VBG HCO3 VBG O2 Saturation VBG Base Excess Anion Gap Estim Creat Clear Calc Estimated GFR POC Glucose 196 H Random Glucose Estimat Average Glucose Hemoglobin A1c % Lactic Acid Lactic Acid F/U @ 2Hr Calcium Magnesium Total Bilirubin Direct Bilirubin AST ALT Alkaline Phosphatase B-Natriuretic Peptide Total Protein Albumin Urine Color YELLOW Urine Appearance HAZY Urine pH 5.5 Ur Specific [place] 1.015 Urine Protein NEG Urine Glucose (UA) >=1000 H Urine Ketones NEG Urine Blood NEG Urine Nitrite NEG Ur Leukocyte Esterase NEG Urine RBC 0-2 Urine WBC 0-2 Ur Squamous Epith Cells TRACE Urine Bacteria NONE Acetone, Qual COVID-19 ([facility]) COVID-19 Clin Com Imaging Radiologist's Impressions: Impressions Chest X-Ray 11/15/21 09:58 IMPRESSION: Hypoexpanded lungs with left basilar atelectasis or scarring. . No change from 05/08/2019. Assessment and Plan (1) Orthostatic hypotension: Status: Acute (2) NEY (acute kidney injury): Status: Acute (3) Hyperglycemia: Status: Acute (4) Poorly controlled diabetes mellitus: Status: Acute Plan An 81 years old male with PMH of diabetes, CMP post AICD, postural hypotension, chronic back pain among others who presents to the hospital with worsening generalized weakness. Hypotension Likely from medications and uncontrolled diabetes not due to severe sepsis Give IV fluid Give midodrine Hold Entresto Get cardiology evaluation Check cortisol and TSH levels Goal of map above 65 Orthostatic vitals to be monitor To do physical therapy before discharge Acute kidney injury Seems to be secondary to dehydration Start gentle hydration Monitor intake and output Hyperglycemia secondary to poorly controlled diabetes Check HbA1c Diabetic diet SSI, Lantus 25 units for now BPH Continue tamsulosin Neuropathy Cut down gabapentin for risk of hypotension DVT PPX Lovenox The patient will likely need 2. Overnight hospital stay for evaluation and treatment of hypotension, acute kidney injury to prevent possible decompensation into renal failure and prevent possible falls. Quality Stroke Does the patient have a stroke diagnosis?: No VTE Prior VTE?: No VTE Risk Level:: Medical - moderate - high VTE Device Contraindication: Treatment Not Indicated VTE Drug Contraindication: N/A - Med Ordered
[2021-11-15 18:45] LABS: Glucose, Whole Blood 74 mg/dL (60-115)
[2021-11-15 18:52] LABS: Thyroid Stimulating Hormone 1.64 uIU/mL (0.32-4.0)
[2021-11-15 19:24] LABS: Cortisol Random 19.9 ug/dL
[2021-11-15] MEDS: 0.9 % Sodium Chloride 1,000 ML 100 ML IVCONT (19:34)
[2021-11-15] MEDS: Enoxaparin Sodium 30 MG/0.3 ML SYRINGE SUBCUT (19:34)
[2021-11-15 21:59] LABS: Glucose, Whole Blood 193 mg/dL (60-115)
[2021-11-15] MEDS: Gabapentin 100 MG CAPSULE 200 MG PO (22:12)
[2021-11-15] MEDS: Insulin Lispro 100 UNIT/ML 3 ML VIAL SUBCUT (22:12)
--- NOTE | 2021-11-15 22:12 | PC.NURSE ---
Pt getting ready for bed and pharmacy advised this RN not to give midodrine this close to bed time. Pt stated that he only takes the midodrine BID at home vs the QID as listed in the 2099 Midodrine held today.
[2021-11-16] VITALS (7 sets, daily range): BP systolic 116–153; BP diastolic 56–76; PULSE 71–87; RESP 15–18; TEMP 35.5–36.5; O2SAT 96–99; BMI 29.0
--- NOTE | 2021-11-16 03:20 | PC.NURSE ---
Assumed care at 2333, pt from ED via stretcher, alert and oriented, denies any unusual pain, forgetful, VSS, SR in tele , calllbell use instructed, maintained on IVF, slept after.
[2021-11-16] MEDS: 0.9 % Sodium Chloride 1,000 ML 100 ML IVCONT (04:38)
[2021-11-16] MEDS: Midodrine HCl 10 MG TABLET PO ×3 (05:35→16:25)
[2021-11-16 06:53] LABS: Hematocrit 34.3 % (42.0-52.0); Hemoglobin 11.4 g/dl (14.0-18.0); Mean Corpuscular HGB Conc 33.2 g/dl (31.0-36.0); Mean Corpuscular Hemoglobin 30.7 pg (27.0-33.0); Mean Corpuscular Volume 92.5 fL (80.0-98.0); Mean Platelet Volume 11.1 fL (9.4-12.4); Red Blood Count 3.71 X10*6/uL (4.60-5.80); Red Cell Distribution Width 13.4 % (11.0-16.0); White Blood Count 4.8 X10*3/uL (4.8-10.8)
[2021-11-16 07:21] LABS: Glucose, Whole Blood 244 mg/dL (60-115)
[2021-11-16 07:32] LABS: Anion Gap 12 (12-20); Blood Urea Nitrogen 28 mg/dL (9-16); Calcium 8.1 mg/dL (8.4-10.2); Carbon Dioxide 23 mmol/L (22-29); Chloride 106 mmol/L (96-108); Creatinine Clr Calc Pharmacy 69.3; Estimated Glomerular Filt Rate > 60; Glucose Random 279 mg/dL (60-115); Potassium 4.4 mmol/L (3.3-5.1); Sodium 137 mmol/L (135-145)
[2021-11-16 08:02] LABS: Platelet Count 95 X10*3/uL (160-400)
[2021-11-16] MEDS: Insulin Glargine,Hum.rec.anlog 100 UNIT/ML 10 ML VIAL 25 UNIT SUBCUT (08:07)
[2021-11-16] MEDS: Insulin Lispro 100 UNIT/ML 3 ML VIAL SUBCUT ×4 (08:07→21:25)
[2021-11-16] MEDS: Cyanocobalamin (Vitamin B-12) 1,000 MCG TABLET 1000 MCG PO (08:08)
[2021-11-16] MEDS: Multivitamin TABLET 1 TAB PO (08:08)
[2021-11-16] MEDS: Cholecalciferol (Vitamin D3) 25 MCG TABLET 50 MCG PO (08:08)
[2021-11-16] MEDS: Gabapentin 100 MG CAPSULE 200 MG PO ×2 (08:08→21:24)
[2021-11-16] MEDS: Tamsulosin HCL 0.4 MG CAPSULE PO (08:08)
[2021-11-16] MEDS: Ascorbic Acid 500 MG TABLET PO (08:08)
[2021-11-16] MEDS: Atorvastatin Calcium 10 MG TABLET PO (08:08)
--- NOTE | 2021-11-16 10:27 | PM.CNCAR ---
History of Present Illness History of Present Illness Date of Service: 11/16/21 Chief complaint: Hypotension, weakness Narrative: This is a cardiology consultation regarding orthostatic hypotension. Patient has multiple medical comorbidities including ischemic cardiomyopathy, biventricular ICD placement, chronic back issues, uncontrolled diabetes, coronary disease, history of bypass surgery mother's. He has not been feeling good for the last few days. Lack of energy, fatigue and generalized tiredness. No specific complaints like angina or shortness of breath or anything specifically cardiac related. He has also been commenced on midodrine for postural hypotension by his manager ccu. Due to nonspecific and constitutional symptoms, he was evaluated and found to have hyper glycemia and blood sugars were apparently more than 600. He also had acute kidney injury and low blood pressure readings. He has received IV fluids and seems better now. With regard to the orthostatic hypotension itself, it seems to be a chronic issue but he states he does not really have any symptoms like postural dizziness or syncope. However, he is quite wobbly on his feet. Review of Systems Review of Systems: Yes all other systems are reviewed and are negative Constitutional: Constitutional: Reports as per HPI, Reports fatigue, Reports lethargy, Reports malaise and Reports weakness Eyes: Eyes: Reports as per HPI ENT: Reports as per HPI Cardiovascular: Cardiovascular: Reports as per HPI, Denies acrocyanosis, Denies cool extremities, Denies chest pain, Denies leg edema, Denies lightheadedness, Denies palpitations and Denies dyspnea Respiratory: Respiratory: Reports as per HPI, Reports no additional respiratory complaints and Denies dyspnea Gastrointestinal: Gastrointestinal: Reports as per HPI and Reports no additional gastrointestinal complaints Genitourinary: Genitourinary: Reports no additional male genitourinary complaints and Reports as per HPI Musculoskeletal: Musculoskeletal: Reports no additional musculoskeletal complaints and Reports as per HPI Integumentary/Breasts: Skin/Breast: Reports system reviewed and no additional complaints, except as docu Neurologic: Reports system reviewed and no additional complaints, except as documented, Reports as per HPI and Reports weakness Psychiatric: Psychiatric: Reports no additional psychiatric complaints and Reports as per HPI Endocrine: Endocrine: Reports no additional endocrine complaints, Reports as per HPI, Reports fatigue and Denies palpitations Hematologic/Lymphatic: Hematologic/Lymphatic: Reports no additional hematologic/lymphatic complaints and Reports as per HPI Allergic/Immunologic: Allergic/Immunologic: Reports no additional allergic/immunologic complaints and Reports as per HPI PMFSH Past Medical History Medical History BPH (benign prostatic hyperplasia) CAD (coronary artery disease) Chronic pain syndrome Chronic pain syndrome CKD stage 3 due to type 2 diabetes mellitus COVID-19 vaccine administered Diabetes type 2, uncontrolled Diabetic nephropathy associated with type 2 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 Dyslipidemia (high LDL; low HDL) Fluid collection at surgical site Hard of hearing History of anal fissures Hx of cardiomyopathy 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 Obesity Pre-op evaluation Spinal stenosis, lumbar region without neurogenic claudication Spondylosis, unspecified TIA (transient ischemic attack) Type 2 diabetes mellitus with hyperlipidemia Vitamin D deficiency Family History Family History Father Colon cancer Lung cancer Mother Diabetes Surgical History Surgical History H/O colonoscopy History of bowel resection History of cardiac defibrillator placement History of surgery Hx of cataract surgery Hx of cholecystectomy Hx of coronary artery bypass graft Hx of hernia repair Social History Social History Household Members: Family Housing: House Do you presently have visiting nurse or other home services: No Alcohol intake: current Alcohol intake frequency: does not drink Patient Tobacco Use Status: Never used Tobacco e-Cigarette/Vaping Use: Never Used Second Hand Smoke Exposure: No service: No Current occupational status: retired Cognitive needs: Yes Hearing needs: Yes Vision needs: Yes Meds Allergies Allergy/AdvReac Type Severity Reaction Status Date / Time No Known Allergies Allergy Verified 11/04/21 09:41 [No Known Allergies*] Active Medications: Current Medications Acetaminophen (Acetaminophen 325 Mg Tablet) 650 mg PO Q6H PRN PRN Reason: Pain, Mild (Pain Scale 1-3) Ascorbic Acid (Ascorbic Acid 500 Mg Tablet) 500 mg PO DAILY [facility] Last Admin: 11/16/21 08:08 Dose: 500 mg Atorvastatin Calcium (Atorvastatin Calcium 10 Mg Tablet) 10 mg PO DAILY [facility] Last Admin: 11/16/21 08:08 Dose: 10 mg Cyanocobalamin (Cyanocobalamin (Vitamin B-12) 1,000 Mcg Tablet) 1,000 mcg PO DAILY [facility] Last Admin: 11/16/21 08:08 Dose: 1,000 mcg Enoxaparin Sodium (Enoxaparin Sodium 30 Mg/0.3 Ml Syringe) 30 mg SUBCUT Q24H [facility] Last Admin: 11/15/21 19:34 Dose: 30 mg Gabapentin (Gabapentin 100 Mg Capsule) 200 mg PO BID [facility] Last Admin: 11/16/21 08:08 Dose: 200 mg Insulin Glargine (Insulin Glargine,Hum.Rec.Anlog 100 Unit/Ml 10 Ml Vial) 35 unit SUBCUT DAILY [facility] Insulin Human Lispro (Insulin Lispro 100 Unit/Ml 3 Ml Vial) 0 unit SUBCUT QIDACHS [facility]; Protocol Last Admin: 11/16/21 08:07 Dose: 4 unit Midodrine (Midodrine Hcl 10 Mg Tablet) 10 mg PO TIDAC [facility] Multivitamins/Vitamin C (Multivitamin Tablet) 1 tab PO DAILY [facility] Last Admin: 11/16/21 08:08 Dose: 1 tab Nitroglycerin (Nitroglycerin 0.4 Mg Tab.Subl) 0.4 mg SUBLINGUAL ONCE PRN PRN Reason: Chest Pain Ondansetron HCl (Ondansetron Hcl 4 Mg/2 Ml Vial) 4 mg IVPUSH Q8H PRN PRN Reason: Nausea and Vomiting Pharmacy Consult (Consult Rx Perform Med Rec) 1 each MISCELLANE ONCE PRN PRN Reason: Consult order Sodium Chloride (0.9 % Sodium Chloride Flush 3 Ml Syringe) 3 ml IVFLUSH QSHIFT [facility] Last Admin: 11/16/21 08:09 Dose: Not Given Tamsulosin HCl (Tamsulosin Hcl 0.4 Mg Capsule) 0.4 mg PO DAILY [facility] Last Admin: 11/16/21 08:08 Dose: 0.4 mg Vitamin D (Cholecalciferol (Vitamin D3) 25 Mcg Tablet) 50 mcg PO DAILY [facility] Last Admin: 11/16/21 08:08 Dose: 50 mcg Home Medications Medication Instructions Recorded Confirmed Last Taken Type tamsulosin 0.4 mg capsule 0.4 mg PO DAILY 01/30/20 11/15/21 11/15/21 History nitroglycerin 0.4 mg sublingual 0.4 mg sublingual ONCE PRN Chest 07/15/20 11/15/21 Unknown History tablet Pain sacubitril 49 mg-valsartan 51 mg 1 tab PO BID 02/13/21 11/15/21 11/15/21 History tablet (Entresto) midodrine 10 mg tablet 10 mg PO BID@0900,1700 11/04/21 11/15/21 11/15/21 History ascorbic acid (vitamin C) 500 mg 500 mg PO DAILY 11/15/21 11/15/21 11/15/21 History tablet cyanocobalamin (vitamin B-12) 1,000 mcg PO DAILY 11/15/21 11/15/21 11/15/21 History 1,000 mcg tablet dulaglutide 1.5 mg/0.5 mL 1.5 mg subcut VILLALTA 11/15/21 11/15/21 Unknown History subcutaneous pen injector (Trulicity) insulin aspart 12 - 15 unit subcut TIDAC 11/15/21 11/15/21 11/15/21 History (niacinamide)(U-100) 100 unit/mL(3 mL) subcutaneous pen (Fiasp FlexTouch U-100 Insulin) insulin degludec 100 unit/mL (3 30 unit subcut DAILY 11/15/21 11/15/21 11/15/21 History mL) subcutaneous pen (Tresiba FlexTouch U-100 insulin) melatonin 10 mg tablet 20 mg PO BEDTIME PRN Sleep 11/15/21 11/15/21 Unknown History multivitamin 1 tab PO DAILY 11/15/21 11/15/21 11/15/21 History Physical Exam Vital Signs: Vital Signs: Last Vital Signs Temp 96 F L 11/16/21 07:01 Pulse 71 11/16/21 07:01 Resp 18 11/16/21 07:01 BP 128/60 11/16/21 07:01 Pulse Ox 98 11/16/21 07:01 O2 Del Method 11/16/21 07:01 BMI result Body Mass Index 29.0 Const: General: comfortable and no acute distress Orientation/consciousness: patient oriented x3 HEENT: Other: Unremarkable Head: Yes normal to inspection Neck: Neck: Yes normal visual inspection Chest: Chest palpation & inspection: normal inspection of the chest Resp: Auscultation: rales Cardio: Palpation: normal PMI Heart sounds: S1 normal heart sound present, S2 normal heart sound present, no gallops, no murmurs and no rubs GI: Palpation (GI): Soft to palpation Back/Spine/Pelvis: Other: unremarkable Skin: General skin exam: no rashes or lesions noted Neuro: General: patient oriented x3 Extrem: General: Yes normal to inspection Psych: Mental Status: mental status grossly normal Objective Labs and Meds Result diagrams: 11/16/21 06:04 11/16/21 06:04 Lab results: Laboratory Results - last 24 hr 11/15/21 11/15/21 11/15/21 09:47 09:47 09:47 WBC RBC Hgb Hct MCV MCH MCHC RDW Plt Count MPV Absolute Nucleated RBC Nucleated RBC % (auto) Sodium Potassium Chloride Carbon Dioxide Anion Gap BUN Creatinine Estim Creat Clear Calc Estimated GFR POC Glucose Random Glucose Estimat Average Glucose 298 Hemoglobin A1c % 12.0 Lactic Acid F/U @ 2Hr Calcium TSH 1.64 Random Cortisol 19.9 Urine Color Urine Appearance Urine pH Ur Specific [place] Urine Protein Urine Glucose (UA) Urine Ketones Urine Blood Urine Nitrite Ur Leukocyte Esterase Urine RBC Urine WBC Ur Squamous Epith Cells Urine Bacteria 11/15/21 11/15/21 11/15/21 10:54 12:33 12:34 WBC RBC Hgb Hct MCV MCH MCHC RDW Plt Count MPV Absolute Nucleated RBC Nucleated RBC % (auto) Sodium Potassium Chloride Carbon Dioxide Anion Gap BUN Creatinine Estim Creat Clear Calc Estimated GFR POC Glucose 463 H* Random Glucose Estimat Average Glucose Hemoglobin A1c % Lactic Acid F/U @ 2Hr 1.9 Calcium TSH Random Cortisol Urine Color YELLOW Urine Appearance HAZY Urine pH 5.5 Ur Specific [place] 1.015 Urine Protein NEG Urine Glucose (UA) >=1000 H Urine Ketones NEG Urine Blood NEG Urine Nitrite NEG Ur Leukocyte Esterase NEG Urine RBC 0-2 Urine WBC 0-2 Ur Squamous Epith Cells TRACE Urine Bacteria NONE 11/15/21 11/15/21 11/15/21 15:54 18:40 21:55 WBC RBC Hgb Hct MCV MCH MCHC RDW Plt Count MPV Absolute Nucleated RBC Nucleated RBC % (auto) Sodium Potassium Chloride Carbon Dioxide Anion Gap BUN Creatinine Estim Creat Clear Calc Estimated GFR POC Glucose 196 H 74 193 H Random Glucose Estimat Average Glucose Hemoglobin A1c % Lactic Acid F/U @ 2Hr Calcium TSH Random Cortisol Urine Color Urine Appearance Urine pH Ur Specific [place] Urine Protein Urine Glucose (UA) Urine Ketones Urine Blood Urine Nitrite Ur Leukocyte Esterase Urine RBC Urine WBC Ur Squamous Epith Cells Urine Bacteria 11/16/21 11/16/21 11/16/21 06:04 06:04 07:04 WBC 4.8 RBC 3.71 L Hgb 11.4 L Hct 34.3 L MCV 92.5 MCH 30.7 MCHC 33.2 RDW 13.4 Plt Count 95 L MPV 11.1 Absolute Nucleated RBC 0.000 Nucleated RBC % (auto) 0.0 Sodium 137 Potassium 4.4 Chloride 106 Carbon Dioxide 23 Anion Gap 12 BUN 28 H Creatinine 0.95 Estim Creat Clear Calc 69.3 Estimated GFR > 60 POC Glucose 244 H Random Glucose 279 H D Estimat Average Glucose Hemoglobin A1c % Lactic Acid F/U @ 2Hr Calcium 8.1 L D TSH Random Cortisol Urine Color Urine Appearance Urine pH Ur Specific [place] Urine Protein Urine Glucose (UA) Urine Ketones Urine Blood Urine Nitrite Ur Leukocyte Esterase Urine RBC Urine WBC Ur Squamous Epith Cells Urine Bacteria ECG Interpretation: EKG with sinus rhythm at 75/Min; possibly V pacing but not clear. Assessment and Plan (1) Orthostatic hypotension: Status: Acute (2) Poorly controlled diabetes mellitus: Status: Acute (3) 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: Status: Acute (4) Ischemic cardiomyopathy: Status: Acute Plan Blood pressure trends reviewed. Today's blood pressure seems okay but yesterday orthostatic blood pressures went down as much as 61/36 mm Hg. Admission blood sugars were more than 600. Today it seems better but still high. Hemoglobin A1c is 12% which is quite high. He sees Dr. Rene for cardiology. LVEF is not clear but patient believes that might be in the 30s. Symptoms most likely all from uncontrolled blood sugars. Orthostatic hypotension also probably plays additional role. He is not listed to be on any beta-blockers. We can probably stop the Entresto as well and monitor. Continue midodrine. Dosing will need to be adjusted according to his blood pressures. Otherwise main issue is uncontrolled blood sugars and that will need to be addressed with Endocrine. Discussed with son in detail. Also discussed with Dr. Chi. Procedures Date of Service Date of Service: 11/16/21
[2021-11-16 11:27] LABS: Glucose, Whole Blood 288 mg/dL (60-115)
--- NOTE | 2021-11-16 11:31 | HO.PM.IMPN ---
Subjective Subjective Date of Service: 11/16/21 Interval History: Seen and evaluated this morning Reports much feeling better today This dizziness and lightheadedness No reported overnight events Review of Systems No fever, chills but reports feeling weakness has improved No chest pain, palpitation No shortness of breath or coughing No abdominal pain, nausea or vomiting No urinary symptoms No any rash or wounds Physical Exam Vital Signs: Vital Signs: Last Vital Signs Temp 96 F L 11/16/21 11:12 Pulse 72 11/16/21 11:12 Resp 18 11/16/21 11:12 BP 119/56 L 11/16/21 11:12 Pulse Ox 97 11/16/21 11:12 O2 Del Method 11/16/21 11:12 BMI result Body Mass Index 29.0 Const: Other: Constitutional : Alert, oriented, not in distress Neck : Normal inspection, Supple Cardiovascular : RRR, no JVP, no lower extremity edema Respiratory : fair bilateral air entry, no crackles, wheezes or rhonchi Gastrointestinal: soft, lax, Normal bowel sounds, Non tender Skin : Warm, Dry Neurological : Alert & oriented x3, No focal deficit , CN 2-12 within normal Objective Data Active Medications Acetaminophen (Acetaminophen 325 Mg Tablet) 650 mg PO Q6H PRN PRN Reason: Pain, Mild (Pain Scale 1-3) Ascorbic Acid (Ascorbic Acid 500 Mg Tablet) 500 mg PO DAILY [facility] Last Admin: 11/16/21 08:08 Dose: 500 mg Documented By: GABBY Atorvastatin Calcium (Atorvastatin Calcium 10 Mg Tablet) 10 mg PO DAILY [facility] Last Admin: 11/16/21 08:08 Dose: 10 mg Documented By: GABBY Cyanocobalamin (Cyanocobalamin (Vitamin B-12) 1,000 Mcg Tablet) 1,000 mcg PO DAILY [facility] Last Admin: 11/16/21 08:08 Dose: 1,000 mcg Documented By: GABBY Enoxaparin Sodium (Enoxaparin Sodium 30 Mg/0.3 Ml Syringe) 30 mg SUBCUT Q24H [facility] Last Admin: 11/15/21 19:34 Dose: 30 mg Documented By: LUZ MARIA Gabapentin (Gabapentin 100 Mg Capsule) 200 mg PO BID [facility] Last Admin: 11/16/21 08:08 Dose: 200 mg Documented By: GABBY Insulin Glargine (Insulin Glargine,Hum.Rec.Anlog 100 Unit/Ml 10 Ml Vial) 35 unit SUBCUT DAILY [facility] Insulin Human Lispro (Insulin Lispro 100 Unit/Ml 3 Ml Vial) 0 unit SUBCUT QIDACHS [facility]; Protocol Last Admin: 11/16/21 08:07 Dose: 4 unit Documented By: GBABY Midodrine (Midodrine Hcl 10 Mg Tablet) 10 mg PO TIDAC [facility] Multivitamins/Vitamin C (Multivitamin Tablet) 1 tab PO DAILY [facility] Last Admin: 11/16/21 08:08 Dose: 1 tab Documented By: GABBY Nitroglycerin (Nitroglycerin 0.4 Mg Tab.Subl) 0.4 mg SUBLINGUAL ONCE PRN PRN Reason: Chest Pain Ondansetron HCl (Ondansetron Hcl 4 Mg/2 Ml Vial) 4 mg IVPUSH Q8H PRN PRN Reason: Nausea and Vomiting Pharmacy Consult (Consult Rx Perform Med Rec) 1 each MISCELLANE ONCE PRN PRN Reason: Consult order Sodium Chloride (0.9 % Sodium Chloride Flush 3 Ml Syringe) 3 ml IVFLUSH QSHIFT [facility] Last Admin: 11/16/21 08:09 Dose: Not Given Documented By: GABBY Non-Admin Reason: IV Running Tamsulosin HCl (Tamsulosin Hcl 0.4 Mg Capsule) 0.4 mg PO DAILY [facility] Last Admin: 11/16/21 08:08 Dose: 0.4 mg Documented By: GABBY Vitamin D (Cholecalciferol (Vitamin D3) 25 Mcg Tablet) 50 mcg PO DAILY [facility] Last Admin: 11/16/21 08:08 Dose: 50 mcg Documented By: GABBY Labs CBC & Chem 7: 11/16/21 06:04 11/16/21 06:04 Labs: Laboratory Results - last 24 hr 11/15/21 11/15/21 11/15/21 09:47 09:47 09:47 MCV MCH MCHC RDW Plt Count MPV Absolute Nucleated RBC Nucleated RBC % (auto) Anion Gap Estim Creat Clear Calc Estimated GFR POC Glucose Random Glucose Estimat Average Glucose 298 Hemoglobin A1c % 12.0 Lactic Acid F/U @ 2Hr Calcium TSH 1.64 Random Cortisol 19.9 Urine Color Urine Appearance Urine pH Ur Specific [place] Urine Protein Urine Glucose (UA) Urine Ketones Urine Blood Urine Nitrite Ur Leukocyte Esterase Urine RBC Urine WBC Ur Squamous Epith Cells Urine Bacteria 11/15/21 11/15/21 11/15/21 12:33 12:34 15:54 MCV MCH MCHC RDW Plt Count MPV Absolute Nucleated RBC Nucleated RBC % (auto) Anion Gap Estim Creat Clear Calc Estimated GFR POC Glucose 196 H Random Glucose Estimat Average Glucose Hemoglobin A1c % Lactic Acid F/U @ 2Hr 1.9 Calcium TSH Random Cortisol Urine Color YELLOW Urine Appearance HAZY Urine pH 5.5 Ur Specific [place] 1.015 Urine Protein NEG Urine Glucose (UA) >=1000 H Urine Ketones NEG Urine Blood NEG Urine Nitrite NEG Ur Leukocyte Esterase NEG Urine RBC 0-2 Urine WBC 0-2 Ur Squamous Epith Cells TRACE Urine Bacteria NONE 11/15/21 11/15/21 11/16/21 18:40 21:55 06:04 MCV 92.5 MCH 30.7 MCHC 33.2 RDW 13.4 Plt Count 95 L MPV 11.1 Absolute Nucleated RBC 0.000 Nucleated RBC % (auto) 0.0 Anion Gap Estim Creat Clear Calc Estimated GFR POC Glucose 74 193 H Random Glucose Estimat Average Glucose Hemoglobin A1c % Lactic Acid F/U @ 2Hr Calcium TSH Random Cortisol Urine Color Urine Appearance Urine pH Ur Specific [place] Urine Protein Urine Glucose (UA) Urine Ketones Urine Blood Urine Nitrite Ur Leukocyte Esterase Urine RBC Urine WBC Ur Squamous Epith Cells Urine Bacteria 11/16/21 11/16/21 11/16/21 06:04 07:04 11:11 MCV MCH MCHC RDW Plt Count MPV Absolute Nucleated RBC Nucleated RBC % (auto) Anion Gap 12 Estim Creat Clear Calc 69.3 Estimated GFR > 60 POC Glucose 244 H 288 H Random Glucose 279 H D Estimat Average Glucose Hemoglobin A1c % Lactic Acid F/U @ 2Hr Calcium 8.1 L D TSH Random Cortisol Urine Color Urine Appearance Urine pH Ur Specific [place] Urine Protein Urine Glucose (UA) Urine Ketones Urine Blood Urine Nitrite Ur Leukocyte Esterase Urine RBC Urine WBC Ur Squamous Epith Cells Urine Bacteria Assessment and Plan (1) Ischemic cardiomyopathy: Status: Acute (2) 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: Status: Acute (3) Orthostatic hypotension: Status: Acute (4) Poorly controlled diabetes mellitus: Status: Acute Plan An 81 years old male with PMH of diabetes, CMP post AICD, postural hypotension, chronic back pain among others who presents to the hospital with worsening generalized weakness. Hypotension Improved From Entresto DC IV fluid Continue t.i.d. midodrine Discontinue Entresto Cardiology input appreciated Normal cortisol and TSH levels Fall orthostatic vitals Physical therapy evaluation Acute kidney injury Seems to be secondary to dehydration Improved with hydration to baseline Monitor intake and output Hyperglycemia secondary to poorly controlled diabetes Elevated HbA1c at 12 Diabetic diet SSI, increase Lantus to 35 units for now Start metformin BPH Continue tamsulosin Neuropathy Cut down gabapentin for risk of hypotension DVT PPX Lovenox The patient will likely need Overnight hospital stay for evaluation and treatment of hypotension, acute kidney injury to prevent possible decompensation into renal failure and prevent possible falls. Quality Stroke Does the patient have a stroke diagnosis?: No VTE Prior VTE?: No VTE Risk Level:: Medical - moderate - high VTE Device Contraindication: Treatment Not Indicated VTE Drug Contraindication: N/A - Med Ordered
[2021-11-16] MEDS: metFORMIN HCl 500 MG TABLET PO ×2 (12:15→17:02)
--- NOTE | 2021-11-16 12:44 | MHC.CM.PN ---
IMM 11/16/21, EMR REVIEWED, PT ADMITTED W/HYPOTENSION AND WEAKNESS, CM MET W/PT WHO IS A&OX4, PT REPORTS HE HAS 3 GRANDSONS LIVING WITH HIM, HAS SEVERAL CANES AND 2 WHEELED WALKERS FOR DME, PT DENIES NEED FOR HOME SERVICES AND IS INDEP AND STILL DRIVING, PT VERIFIES PCP CRESCENCIO WANG, MODERNA VACCINE X4 AND THAT HIS HCP IS ISABEL MONET [phone], COPY REQUESTED. PT DOES REPORT HX OF ETOH HOWEVER REPORTS HE HAS NOT HAD ANY ETOH IN OVER 5 YRS. D/C PLAN: HOME NO SERVICES W/FAMILY FOR TRANSPORT
[2021-11-16 16:12] LABS: Glucose, Whole Blood 198 mg/dL (60-115)
[2021-11-16] MEDS: 0.9 % Sodium Chloride Flush 3 ML SYRINGE IVFLUSH ×2 (16:25→23:57)
[2021-11-16] MEDS: Enoxaparin Sodium 30 MG/0.3 ML SYRINGE SUBCUT (18:50)
[2021-11-16] MEDS: Calcium Carbonate 750 MG TAB.CHEW PO (21:24)
[2021-11-16] MEDS: Melatonin 3 MG TABLET 6 MG PO (21:24)
[2021-11-16 21:37] LABS: Glucose, Whole Blood 154 mg/dL (60-115)
[2021-11-16] MEDS: ondansetron HCL 4 MG/2 ML VIAL IVPUSH (22:15)
[2021-11-17 03:28] VITALS: BP 113/56; PULSE 75; RESP 19; TEMP 36.2; O2SAT 95
[2021-11-17 06:45] LABS: Anion Gap 13 (12-20); Blood Urea Nitrogen 20 mg/dL (9-16); Calcium 9.3 mg/dL (8.4-10.2); Carbon Dioxide 32 mmol/L (22-29); Chloride 100 mmol/L (96-108); Creatinine Clr Calc Pharmacy 67.2; Estimated Glomerular Filt Rate > 60; Glucose Random 144 mg/dL (60-115); Potassium 4.4 mmol/L (3.3-5.1); Sodium 141 mmol/L (135-145)
[2021-11-17] MEDS: Bismuth Subsalicylate 262 MG TABLET PO (07:18)
[2021-11-17 08:00] VITALS: BP 130/69; PULSE 89; RESP 20; TEMP 36.4; O2SAT 97
[2021-11-17 08:16] LABS: Glucose, Whole Blood 171 mg/dL (60-115)
[2021-11-17] MEDS: Multivitamin TABLET 1 TAB PO (09:08)
[2021-11-17] MEDS: Cholecalciferol (Vitamin D3) 25 MCG TABLET 50 MCG PO (09:08)
[2021-11-17] MEDS: Cyanocobalamin (Vitamin B-12) 1,000 MCG TABLET 1000 MCG PO (09:08)
[2021-11-17] MEDS: Midodrine HCl 10 MG TABLET PO ×3 (09:08→17:25)
[2021-11-17] MEDS: Atorvastatin Calcium 10 MG TABLET PO (09:08)
[2021-11-17] MEDS: Ascorbic Acid 500 MG TABLET PO (09:08)
[2021-11-17] MEDS: Insulin Lispro 100 UNIT/ML 3 ML VIAL SUBCUT ×2 (09:09→11:35)
[2021-11-17] MEDS: metFORMIN HCl 500 MG TABLET PO (09:09)
[2021-11-17] MEDS: Gabapentin 100 MG CAPSULE 200 MG PO ×2 (09:09→20:51)
[2021-11-17] MEDS: Tamsulosin HCL 0.4 MG CAPSULE PO (09:09)
[2021-11-17] MEDS: Insulin Glargine,Hum.rec.anlog 100 UNIT/ML 10 ML VIAL 30 UNIT SUBCUT (09:11)
[2021-11-17] MEDS: 0.9 % Sodium Chloride Flush 3 ML SYRINGE IVFLUSH ×3 (09:14→20:51)
--- NOTE | 2021-11-17 09:15 | P.CDIC_ITS ---
CDI Concurrent Query Documentation Clarification: PHYSICIAN'S DOCUMENTATION REQUEST Date of Query: 11/17/21 0916 Patient Name: Luiz Castaneda Admit Date: 11/15/21 Dear Doctor, A review of the medical record indicates additional documentation may be indicated. Please review below and update the documentation accordingly. Clinical Indicators: Risk Factors/Clinical Indicators/Treatments Wound care notes 11/16 - Pressure injury lower back Stage II. Foam dressing. Based on the above, could you please provide, in the Progress Notes, further information regarding the ulcer/wound: * For a non-pressure ulcer, please indicate the depth/severity: * Limited to the breakdown of skin * With fat layer exposed * With necrosis of muscle * With necrosis of bone * Other * Unable to determine * If a pressure ulcer, please also include the stage* of the ulcer: * Stage 1 - Skin intact, non-blanchable redness * Stage 2 - Partial thickness loss of dermis, includes intact or open blister * Stage 3 - Full thickness tissue not including bone, tendon, or muscle * Stage 4 - Full thickness tissue loss, including exposed bones, tendon, or muscle * Other * Unable to determine *Source: National Pressure Ulcer Advisory Panel (NPUAP) Use of terms such as suspected, likely, concern for, or probable (associated with a specific diagnosis that is being evaluated, monitored, or treated as if it exists) are acceptable and can be coded in the inpatient setting, when documented at the time of discharge. Thank you, Karissa Calix [facility], CDIS Extension: [phone] Please use your independent medical judgment in providing your response. THIS QUERY IS PART OF THE PERMANENT MEDICAL RECORD Provider Response: Other Other Diagnosis: Pressure injury lower back Stage II.
--- NOTE | 2021-11-17 09:15 | MHC.CDI.CONC ---
CDI Concurrent Query Documentation Clarification: PHYSICIAN'S DOCUMENTATION REQUEST Date of Query: 11/17/21 0916 Patient Name: Luiz Castaneda Admit Date: 11/15/21 Dear Doctor, A review of the medical record indicates additional documentation may be indicated. Please review below and update the documentation accordingly. Clinical Indicators: Risk Factors/Clinical Indicators/Treatments Wound care notes 11/16 - Pressure injury lower back Stage II. Foam dressing. Based on the above, could you please provide, in the Progress Notes, further information regarding the ulcer/wound: For a non-pressure ulcer, please indicate the depth/severity: Limited to the breakdown of skin With fat layer exposed With necrosis of muscle With necrosis of bone Other Unable to determine If a pressure ulcer, please also include the stage* of the ulcer: Stage 1 - Skin intact, non-blanchable redness Stage 2 - Partial thickness loss of dermis, includes intact or open blister Stage 3 - Full thickness tissue not including bone, tendon, or muscle Stage 4 - Full thickness tissue loss, including exposed bones, tendon, or muscle Other Unable to determine *Source: National Pressure Ulcer Advisory Panel (NPUAP) Use of terms such as suspected, likely, concern for, or probable (associated with a specific diagnosis that is being evaluated, monitored, or treated as if it exists) are acceptable and can be coded in the inpatient setting, when documented at the time of discharge. Thank you, Karissa Calix [facility], CDIS Extension: [phone] Please use your independent medical judgment in providing your response. THIS QUERY IS PART OF THE PERMANENT MEDICAL RECORD Provider Response: Other Other Diagnosis: Pressure injury lower back Stage II.
[2021-11-17 11:13] LABS: Glucose, Whole Blood 178 mg/dL (60-115)
[2021-11-17 11:33] VITALS: BP 107/66; PULSE 98; RESP 18; TEMP 36.2; O2SAT 96
[2021-11-17] MEDS: Omeprazole 20 MG CAPSULE.DR PO (11:35)
--- NOTE | 2021-11-17 11:35 | MHC.CM.PN ---
PER MD, PT MAY BE READY TO DC TOMORROW PHYSICAL THERAPY EVAL PENDING, UNABLE TO BE COMPLETED THIS MORNING. DCP TBD PENDING EVAL HOME WITH SERVICES VS STR
[2021-11-17] MEDS: ondansetron HCL 4 MG/2 ML VIAL IVPUSH ×2 (11:36→19:42)
[2021-11-17 12:03] VITALS: BMI 29.0
--- NOTE | 2021-11-17 12:26 | P.PNIM_ITS ---
Subjective Subjective Date of Service: 11/17/21 Interval History: Seen and evaluated this morning feeling sick to his stomach denies dizziness and lightheadedness No reported overnight events Review of Systems No fever, chills but reports feeling weakness has improved No chest pain, palpitation No shortness of breath or coughing No abdominal pain, but having nausea and vomiting No urinary symptoms No any rash or wounds Physical Exam Vital Signs: Vital Signs: Last Vital Signs Temp 97.1 F 11/17/21 11:33 Pulse 98 11/17/21 11:33 Resp 18 11/17/21 11:33 BP 107/66 11/17/21 11:33 Pulse Ox 96 11/17/21 11:33 O2 Del Method 11/17/21 11:33 BMI result Body Mass Index 29.0 Const: Other: Constitutional : Alert, oriented, not in distress Neck : Normal inspection, Supple Cardiovascular : RRR, no JVP, no lower extremity edema Respiratory : fair bilateral air entry, no crackles, wheezes or rhonchi Gastrointestinal: soft, lax, Normal bowel sounds, Non tender Skin : Warm, Dry, Pressure injury lower back Stage II with no drainage, spinal cord stimulator skin erythema with mild tenderness but no drainage noted. Neurological : Alert & oriented x3, No focal deficit , CN 2-12 within normal Objective Data Active Medications Acetaminophen (Acetaminophen 325 Mg Tablet) 650 mg PO Q6H PRN PRN Reason: Pain, Mild (Pain Scale 1-3) Ascorbic Acid (Ascorbic Acid 500 Mg Tablet) 500 mg PO DAILY [facility] Last Admin: 11/17/21 09:08 Dose: 500 mg Documented By: SHAGGY Atorvastatin Calcium (Atorvastatin Calcium 10 Mg Tablet) 10 mg PO DAILY [facility] Last Admin: 11/17/21 09:08 Dose: 10 mg Documented By: SHAGGY Calcium Carbonate (Calcium Carbonate 750 Mg Tab.Chew) 1,500 mg PO Q6H PRN PRN Reason: heartburn Cyanocobalamin (Cyanocobalamin (Vitamin B-12) 1,000 Mcg Tablet) 1,000 mcg PO DAILY [facility] Last Admin: 11/17/21 09:08 Dose: 1,000 mcg Documented By: SHAGGY Doxycycline Hyclate (Doxycycline Hyclate 100 Mg Tablet) 100 mg PO Q12H [facility] Last Admin: 11/17/21 11:35 Dose: 100 mg Documented By: SAHGGY Enoxaparin Sodium (Enoxaparin Sodium 30 Mg/0.3 Ml Syringe) 30 mg SUBCUT Q24H [facility] Last Admin: 11/16/21 18:50 Dose: 30 mg Documented By: SG Gabapentin (Gabapentin 100 Mg Capsule) 200 mg PO BID [facility] Last Admin: 11/17/21 09:09 Dose: 200 mg Documented By: SHAGGY Insulin Glargine (Insulin Glargine,Hum.Rec.Anlog 100 Unit/Ml 10 Ml Vial) 30 unit SUBCUT DAILY [facility] Last Admin: 11/17/21 09:11 Dose: 30 unit Documented By: SHAGGY Insulin Human Lispro (Insulin Lispro 100 Unit/Ml 3 Ml Vial) 0 unit SUBCUT QIDACHS [facility]; Protocol Last Admin: 11/17/21 11:35 Dose: 2 unit Documented By: SHAGGY Melatonin (Melatonin 3 Mg Tablet) 6 mg PO BEDTIME PRN PRN Reason: Insomnia Last Admin: 11/16/21 21:24 Dose: 6 mg Documented By: SG Metformin HCl (Metformin Hcl 500 Mg Tablet) 500 mg PO BIDWM [facility] Last Admin: 11/17/21 09:09 Dose: 500 mg Documented By: SHAGGY Midodrine (Midodrine Hcl 10 Mg Tablet) 10 mg PO TIDAC [facility] Last Admin: 11/17/21 11:35 Dose: 10 mg Documented By: SHAGGY Multivitamins/Vitamin C (Multivitamin Tablet) 1 tab PO DAILY [facility] Last Admin: 11/17/21 09:08 Dose: 1 tab Documented By: SHAGGY Nitroglycerin (Nitroglycerin 0.4 Mg Tab.Subl) 0.4 mg SUBLINGUAL ONCE PRN PRN Reason: Chest Pain Omeprazole (Omeprazole 20 Mg Capsule.Dr) 20 mg PO DAILY@0630 [facility] Last Admin: 11/17/21 11:35 Dose: 20 mg Documented By: SHAGGY Ondansetron HCl (Ondansetron Hcl 4 Mg/2 Ml Vial) 4 mg IVPUSH Q8H PRN PRN Reason: Nausea and Vomiting Last Admin: 11/16/21 22:15 Dose: 4 mg Documented By: SG Pharmacy Consult (Consult Rx Perform Med Rec) 1 each MISCELLANE ONCE PRN PRN Reason: Consult order Sodium Chloride (0.9 % Sodium Chloride Flush 3 Ml Syringe) 3 ml IVFLUSH QSHIFT [facility] Last Admin: 11/17/21 09:14 Dose: 3 ml Documented By: SHAGGY Tamsulosin HCl (Tamsulosin Hcl 0.4 Mg Capsule) 0.4 mg PO DAILY [facility] Last Admin: 11/17/21 09:09 Dose: 0.4 mg Documented By: SHAGGY Vitamin D (Cholecalciferol (Vitamin D3) 25 Mcg Tablet) 50 mcg PO DAILY [facility] Last Admin: 11/17/21 09:08 Dose: 50 mcg Documented By: SHAGGY Labs CBC & Chem 7: 11/16/21 06:04 11/17/21 06:00 Labs: Laboratory Results - last 24 hr 11/16/21 11/16/21 11/17/21 16:00 21:08 06:00 Anion Gap 13 Estim Creat Clear Calc 67.2 Estimated GFR > 60 POC Glucose 198 H 154 H Random Glucose 144 H D Calcium 9.3 D 11/17/21 11/17/21 08:01 11:09 Anion Gap Estim Creat Clear Calc Estimated GFR POC Glucose 171 H 178 H Random Glucose Calcium Microbiology Microbiology Results: Microbiology 11/15/21 10:13 Blood Culture - Preliminary Blood - Venous No growth after 48 hours. 11/15/21 10:49 Blood Culture - Preliminary Blood - Venous No growth after 24 hours. Assessment and Plan (1) Orthostatic hypotension: Status: Acute (2) Hyperglycemia: Status: Acute (3) NEY (acute kidney injury): Status: Acute Plan An 81 years old male with PMH of diabetes, CMP post AICD, postural hypotension, chronic back pain among others who presents to the hospital with worsening generalized weakness. Hypotension Improved Discontinue Entresto Continue t.i.d. midodrine Cardiology input appreciated Normal cortisol and TSH levels Fall orthostatic vitals Physical therapy evaluation Acute kidney injury Seems to be secondary to dehydration Improved with hydration to baseline Monitor intake and output Hyperglycemia secondary to poorly controlled diabetes Elevated HbA1c at 12 Diabetic diet SSI, Lantus to 30 units for now discontinue metformin for evidence of GI upset to discuss with Endocrinology about see him earlier after discharge nausea and vomiting Likely secondary to metformin, to hold Give Zofran as needed and monitor Pressure injury lower back Stage II. local measures Concern over spinal cord stimulator skin infection, no clear drainage noted P.o. doxycycline for now BPH Continue tamsulosin Neuropathy Cut down gabapentin for risk of hypotension DVT PPX Lovenox The patient will likely need Overnight hospital stay for evaluation and treatment of hypotension, Nausea and vomiting to prevent possible decompensation into renal failure and pending PT evaluation to prevent possible falls for safe discharge plan. Quality Stroke Does the patient have a stroke diagnosis?: No VTE Prior VTE?: No VTE Risk Level:: Medical - moderate - high VTE Device Contraindication: Treatment Not Indicated VTE Drug Contraindication: N/A - Med Ordered
[2021-11-17 15:41] VITALS: BP 142/75; PULSE 86; RESP 14; TEMP 36.6; O2SAT 99
[2021-11-17 15:47] LABS: Glucose, Whole Blood 133 mg/dL (60-115)
[2021-11-17] MEDS: Enoxaparin Sodium 30 MG/0.3 ML SYRINGE SUBCUT (17:24)
[2021-11-17 20:00] VITALS: BP 136/71; PULSE 88; RESP 18; TEMP 36.6; O2SAT 97
[2021-11-17 20:29] LABS: Glucose, Whole Blood 113 mg/dL (60-115)
[2021-11-18] VITALS: BP 124/70; PULSE 74; RESP 16; TEMP 36.3; O2SAT 95
[2021-11-18 04:00] VITALS: BP 120/67; PULSE 76; RESP 17; TEMP 36.7; O2SAT 96
[2021-11-18] MEDS: Omeprazole 20 MG CAPSULE.DR PO (05:17)
[2021-11-18 06:15] LABS: Anion Gap 12 (12-20); Blood Urea Nitrogen 19 mg/dL (9-16); Calcium 9.2 mg/dL (8.4-10.2); Carbon Dioxide 28 mmol/L (22-29); Chloride 105 mmol/L (96-108); Creatinine Clr Calc Pharmacy 64.6; Estimated Glomerular Filt Rate > 60; Glucose Random 98 mg/dL (60-115); Potassium 4.3 mmol/L (3.3-5.1); Sodium 141 mmol/L (135-145)
[2021-11-18 07:30] VITALS: BP 111/54; PULSE 70; RESP 20; TEMP 35.9; O2SAT 98
[2021-11-18 07:50] LABS: Glucose, Whole Blood 90 mg/dL (60-115)
[2021-11-18] MEDS: Gabapentin 100 MG CAPSULE 200 MG PO (08:21)
[2021-11-18] MEDS: Midodrine HCl 10 MG TABLET PO ×2 (08:21→11:19)
[2021-11-18] MEDS: Multivitamin TABLET 1 TAB PO (08:21)
[2021-11-18] MEDS: Atorvastatin Calcium 10 MG TABLET PO (08:21)
[2021-11-18] MEDS: Cholecalciferol (Vitamin D3) 25 MCG TABLET 50 MCG PO (08:22)
[2021-11-18] MEDS: Ascorbic Acid 500 MG TABLET PO (08:22)
[2021-11-18] MEDS: 0.9 % Sodium Chloride Flush 3 ML SYRINGE IVFLUSH (08:22)
[2021-11-18] MEDS: Tamsulosin HCL 0.4 MG CAPSULE PO (08:22)
[2021-11-18] MEDS: Cyanocobalamin (Vitamin B-12) 1,000 MCG TABLET 1000 MCG PO (08:22)
[2021-11-18] MEDS: Insulin Glargine,Hum.rec.anlog 100 UNIT/ML 10 ML VIAL 30 UNIT SUBCUT (08:26)
[2021-11-18 08:29] VITALS: BP 111/54; PULSE 70; O2SAT 98
--- NOTE | 2021-11-18 09:18 | MHC.CDI.CONC ---
CDI Concurrent Query Documentation Clarification: PHYSICIAN'S DOCUMENTATION REQUEST Date of Query: 11/18/2118 Patient Name: Luiz Castaneda Admit Date: 11/15/21 Dear Doctor, A review of the medical record indicates additional documentation may be needed. Please review below and update the documentation accordingly. Clinical Indicators: Risk Factors/Clinical Indicators/Treatments Diabetes mellitus Type 2 with diabetic neuropathy. Generalized weakness, cant walk, chronic gait instability. Cut down on Gabapentin for risk of hypotension. Please clarify the following regarding Diabetes Mellitus (DM): Diabetes mellitus with neuropathy specifics: Polyneuropathy Peripheral neuropathy Autonomic neuropathy Other Unable to determine Use of terms such as suspected, likely, concern for, or probable (associated with a specific diagnosis that is being evaluated, monitored, or treated as if it exists) are acceptable and can be coded in the inpatient setting, when documented at the time of discharge. Thank you, Karissa Calix [facility], CDIS Extension: [phone] Please use your independent medical judgment in providing your response. THIS QUERY IS PART OF THE PERMANENT MEDICAL RECORD Provider Response: Other Other Diagnosis: peripheral neuropathy
--- NOTE | 2021-11-18 09:55 | HE.PHANOTE ---
Patient's renal function has improved to CrCl 64.6. Recommended to increase Lovenox dose to 40 mg. Abdemond agree and dose has been adjust. Niurka Jang, PharmD
[2021-11-18 11:11] LABS: Glucose, Whole Blood 135 mg/dL (60-115)
[2021-11-18 11:14] VITALS: BP 120/59; PULSE 76; RESP 20; TEMP 36.6; O2SAT 94
--- NOTE | 2021-11-18 11:23 | MHC.CM.PN ---
Addendum entered by Perla Wong 11/18/21 14:06: REFERRAL ALSO MADE TO [facility] ABLE TO OFFER SERVICES PT WILL DC HOME TODAY WITH [facility] AND PT Addendum entered by Perla Wong 11/18/21 14:00: PTS CAR IS IN ED PARKING LOT, HE PLANS TO DRIVE HIMSELF HOME Addendum entered by Perla Wong 11/18/21 13:56: [facility] DECLINING [facility]ERRAL CM MET WITH PT WHO REPORTS HE WOULD PREFER TO GO HOME THEN HE REPORTS HE WOULD LIKE [facility] FOR PT REFERRAL MADE TO [facility] Original Note: PT SEEN BY PHYSICAL THERAPY STR RECOMMENDED PT REQUESTS REFERRAL TO [facility] RE[facility]ERR[facility] PLACED AWAITING RESPONSE
--- NOTE | 2021-11-18 13:49 | P.PNIM_ITS ---
Subjective Subjective Date of Service: 11/18/21 Interval History: Seen and evaluated this morning feels better this morning, less nausea and tolerating diet well denies dizziness and lightheadedness No reported overnight events Review of Systems No fever, chills but reports feeling weakness has improved No chest pain, palpitation No shortness of breath or coughing No abdominal pain, but having nausea and vomiting No urinary symptoms No any rash or wounds Physical Exam Vital Signs: Vital Signs: Last Vital Signs Temp 97.8 F 11/18/21 11:14 Pulse 76 11/18/21 11:14 Resp 20 11/18/21 11:14 BP 120/59 L 11/18/21 11:14 Pulse Ox 94 11/18/21 11:14 O2 Del Method 11/18/21 11:14 BMI result Body Mass Index 29.0 Const: Other: Constitutional : Alert, oriented, not in distress Neck : Normal inspection, Supple Cardiovascular : RRR, no JVP, no lower extremity edema Respiratory : fair bilateral air entry, no crackles, wheezes or rhonchi Gastrointestinal: soft, lax, Normal bowel sounds, Non tender Skin : Warm, Dry, Pressure injury lower back Stage II with no drainage, spinal cord stimulator skin erythema with mild tenderness but no drainage noted. Neurological : Alert & oriented x3, No focal deficit , CN 2-12 within normal Objective Data Active Medications Acetaminophen (Acetaminophen 325 Mg Tablet) 650 mg PO Q6H PRN PRN Reason: Pain, Mild (Pain Scale 1-3) Ascorbic Acid (Ascorbic Acid 500 Mg Tablet) 500 mg PO DAILY [facility] Last Admin: 11/18/21 08:22 Dose: 500 mg Documented By: SHAGGY Atorvastatin Calcium (Atorvastatin Calcium 10 Mg Tablet) 10 mg PO DAILY [facility] Last Admin: 11/18/21 08:21 Dose: 10 mg Documented By: SHAGGY Calcium Carbonate (Calcium Carbonate 750 Mg Tab.Chew) 1,500 mg PO Q6H PRN PRN Reason: heartburn Cyanocobalamin (Cyanocobalamin (Vitamin B-12) 1,000 Mcg Tablet) 1,000 mcg PO DAILY [facility] Last Admin: 11/18/21 08:22 Dose: 1,000 mcg Documented By: SHAGGY Doxycycline Hyclate (Doxycycline Hyclate 100 Mg Tablet) 100 mg PO Q12H [facility] Last Admin: 11/18/21 11:19 Dose: 100 mg Documented By: SHAGGY Enoxaparin Sodium (Enoxaparin Sodium 40 Mg/0.4 Ml Syringe) 40 mg SUBCUT Q24H [facility] Gabapentin (Gabapentin 100 Mg Capsule) 200 mg PO BID [facility] Last Admin: 11/18/21 08:21 Dose: 200 mg Documented By: SHAGGY Insulin Glargine (Insulin Glargine,Hum.Rec.Anlog 100 Unit/Ml 10 Ml Vial) 30 unit SUBCUT DAILY [facility] Last Admin: 11/18/21 08:26 Dose: 30 unit Documented By: SHAGGY Insulin Human Lispro (Insulin Lispro 100 Unit/Ml 3 Ml Vial) 0 unit SUBCUT QIDACHS [facility]; Protocol Last Admin: 11/18/21 11:21 Dose: Not Given Documented By: SHAGGY Non-Admin Reason: PER PROTOCOL Melatonin (Melatonin 3 Mg Tablet) 6 mg PO BEDTIME PRN PRN Reason: Insomnia Last Admin: 11/16/21 21:24 Dose: 6 mg Documented By: SG Metformin HCl (Metformin Hcl 500 Mg Tablet) 500 mg PO BIDWM [facility] Last Admin: 11/17/21 09:09 Dose: 500 mg Documented By: SHAGGY Midodrine (Midodrine Hcl 10 Mg Tablet) 10 mg PO TIDAC [facility] Last Admin: 11/18/21 11:19 Dose: 10 mg Documented By: SHAGGY Multivitamins/Vitamin C (Multivitamin Tablet) 1 tab PO DAILY [facility] Last Admin: 11/18/21 08:21 Dose: 1 tab Documented By: SHAGGY Nitroglycerin (Nitroglycerin 0.4 Mg Tab.Subl) 0.4 mg SUBLINGUAL ONCE PRN PRN Reason: Chest Pain Omeprazole (Omeprazole 20 Mg Capsule.Dr) 20 mg PO DAILY@0630 [facility] Last Admin: 11/18/21 05:17 Dose: 20 mg Documented By: KIMBER Ondansetron HCl (Ondansetron Hcl 4 Mg/2 Ml Vial) 4 mg IVPUSH Q8H PRN PRN Reason: Nausea and Vomiting Last Admin: 11/17/21 19:42 Dose: 4 mg Documented By: KIMBER Pharmacy Consult (Consult Rx Perform Med Rec) 1 each MISCELLANE ONCE PRN PRN Reason: Consult order Sodium Chloride (0.9 % Sodium Chloride Flush 3 Ml Syringe) 3 ml IVFLUSH QSHIFT [facility] Last Admin: 11/18/21 08:22 Dose: 3 ml Documented By: SHAGGY Tamsulosin HCl (Tamsulosin Hcl 0.4 Mg Capsule) 0.4 mg PO DAILY [facility] Last Admin: 11/18/21 08:22 Dose: 0.4 mg Documented By: SHAGGY Vitamin D (Cholecalciferol (Vitamin D3) 25 Mcg Tablet) 50 mcg PO DAILY [facility] Last Admin: 11/18/21 08:22 Dose: 50 mcg Documented By: SHAGGY Labs CBC & Chem 7: 11/16/21 06:04 11/18/21 05:32 Labs: Laboratory Results - last 24 hr 11/17/21 11/17/21 11/18/21 15:43 20:22 05:32 Anion Gap 12 Estim Creat Clear Calc 64.6 Estimated GFR > 60 POC Glucose 133 H 113 Random Glucose 98 Calcium 9.2 11/18/21 11/18/21 07:47 11:04 Anion Gap Estim Creat Clear Calc Estimated GFR POC Glucose 90 135 H Random Glucose Calcium Microbiology Microbiology Results: Microbiology 11/15/21 10:49 Blood Culture - Preliminary Blood - Venous No growth after 48 hours. 11/15/21 10:13 Blood Culture - Preliminary Blood - Venous No growth after 48 hours. Assessment and Plan (1) Orthostatic hypotension: Status: Acute Plan An 81 years old male with PMH of diabetes, CMP post AICD, postural hypotension, chronic back pain among others who presents to the hospital with worsening generalized weakness. Hypotension Improved Discontinue Entresto Continue t.i.d. midodrine Cardiology input appreciated Normal cortisol and TSH levels Fall orthostatic vitals Physical therapy evaluation Acute kidney injury resolved, secondary to dehydration Monitor intake and output Hyperglycemia secondary to poorly controlled diabetes Elevated HbA1c at 12 Diabetic diet SSI, Lantus to 30 units for now discontinue metformin for evidence of GI upset he will need to follow-up with his PCP pending new patient service specialist and follow strict diabetic diet nausea and vomiting resolved Likely secondary to metformin, to hold Give Zofran as needed and monitor Pressure injury lower back Stage II. local measures Concern over spinal cord stimulator skin infection, no clear drainage noted P.o. doxycycline for now BPH Continue tamsulosin Neuropathy Cut down gabapentin for risk of hypotension DVT PPX Lovenox The patient will likely need Overnight hospital stay for evaluation and treatment of hypotension, Nausea and vomiting to prevent possible decompensation into renal failure and pending Placement to prevent possible falls for safe discharge plan. Quality Stroke Does the patient have a stroke diagnosis?: No VTE Prior VTE?: No VTE Risk Level:: Medical - moderate - high VTE Device Contraindication: Treatment Not Indicated VTE Drug Contraindication: N/A - Med Ordered
--- NOTE | 2021-11-18 14:12 | P.F2F_ITS ---
Service Date Service Date: 11/18/21 Encounter Date of encounter: 11/18/21 Reasons for Services Signs and symptoms assessed: physical deconditioning Reason for residential: monitoring of unstable blood sugar and teach disease management Reason for physical therapy: home safety and mobility and therapeutic exercises Homebound: Leaving the home is medically contraindicated at this time without the asist of a device and/or another person due th the listed conditions above and below. Reason homebound: unsteady gait / fall risk and other Certification: Based on the above findings, I certify that this patient is confined to the home and needs intermittent residential care, physical therapy and/or speech therapy, or continues to need occupational therapy. The patient is under my care, and I have initiated the establishment of the plan of care. The patient will be followed by a physician who will periodically review the plan of care.
--- NOTE | 2021-11-18 14:13 | P.DS_ITS ---
DS: Providers Provider Date of Service: 11/18/21 Date of admission: 11/15/21 17:40 Primary care physician: Lee Chi MD Consults: 11/15/21 17:40 Consult to Cardiology Routine Consulting Provider: Jefferson Kwon Reason for consultation: hypotension. DS: Diagnosis Discharge Diagnosis (1) Orthostatic hypotension: Status: Acute (2) Poorly controlled diabetes mellitus: Status: Acute (3) Hyperglycemia: Status: Acute (4) NEY (acute kidney injury): Status: Acute DS: Summary Hospital Course Hospital Course: admission note HPI An 81 years old male with PMH of diabetes, CMP post AICD, postural hypotension, chronic back pain among others who presents to the hospital with worsening generalized weakness.? The patient reported that he has been feeling of for the last 2 days but this morning he felt too weak to walk.? He is mainly active using her walker or a cane to ambulate around.? Still driving.? Gets out and meet with friends at least once a day.? This morning he felt he has no energy and he was back home by himself so he got worried and decided to drive himself to the hospital.? He reports that he is feeling dizzy upon standing up and weak to ambulate.? Denies any chest pain, palpitation, shortness of breath, nausea, vomiting, change in bowel habit or urinary symptoms. He was started recently on midodrine by his screen cutter and trimmer for postural hypotension but he still taking blood pressure medications at this point. In the emergency he was found to have hyperglycemia of above 600 associated with acute kidney injury and significantly low blood pressure readings.? Responded partially to IV fluid and midodrine.? Will be admitted for further evaluation and treatment. hospital course The patient was admitted for evaluation of worsening generalized weakness. Found to have significant hypotension at time of presentation. Responded well to IV fluid and holding Entresto. Cardiology team evaluated the patient and recommended to increase midodrine to 3 times a day and discontinue Entresto. To be followed as outpatient. Noted to have acute kidney injury at time of presentation believed to be secondary to dehydration. Kidney function improved back to baseline after treatment with IV fluids. Noted to have significantly elevated blood sugar readings with no evidence of DKA. Treated with IV fluids and insulin with good response as HbA1c was found to be 12. Metformin was added but he started to have GI complaints and it was discontinued afterward. To be discharged on his current dose of insulin as his blood sugar was fairly controlled in the hospital while on diabetic diet. Advised strict diabetic diet at home. Noted to have some redness and tenderness around the area of nerve stimulator in his back. No clear drainage was noted. Started on oral doxycycline to finish 1 week of treatment and to be followed by his pain doctor. Continue doxycycline for 5 more days and follow-up with your pain doctor Diabetic diet and use your insulin as prescribed To follow-up with your PCP for better control of your sugar and to follow-up with Endocrinology Discontinue Entresto To do physical therapy at home Time Spent with Patient Time attestation: Total time spent providing and/or coordinating discharge services: Discharge coordination time: Greater than 30 minutes Quality: Safe Use of Opioids Does Pt have an Active Cancer Diagnosis on the Problem List?: No Quality: Stroke Does the patient have a stroke diagnosis?: No Physical Exam Vital Signs: Vital Signs: Last Vital Signs Temp 97.8 F 11/18/21 11:14 Pulse 76 11/18/21 11:14 Resp 20 11/18/21 11:14 BP 120/59 L 11/18/21 11:14 Pulse Ox 94 11/18/21 11:14 O2 Del Method 11/18/21 11:14 BMI result Body Mass Index 29.0 Const: Other: Constitutional : Alert, oriented, not in distress Neck : Normal inspection, Supple Cardiovascular : RRR, no JVP, no lower extremity edema Respiratory : fair bilateral air entry, no crackles, wheezes or rhonchi Gastrointestinal: soft, lax, Normal bowel sounds, Non tender Skin : Warm, Dry, Pressure injury lower back Stage II with no drainage, spinal cord stimulator skin erythema with mild tenderness but no drainage noted. Neurological : Alert & oriented x3, No focal deficit , CN 2-12 within normal DS: Data Data Completed and Pending Labs on day of discharge: Laboratory Results - last 24 hr 11/17/21 11/17/21 11/18/21 15:43 20:22 05:32 Sodium 141 Potassium 4.3 Chloride 105 Carbon Dioxide 28 Anion Gap 12 BUN 19 H Creatinine 1.02 Estim Creat Clear Calc 64.6 Estimated GFR > 60 POC Glucose 133 H 113 Random Glucose 98 Calcium 9.2 11/18/21 11/18/21 07:47 11:04 Sodium Potassium Chloride Carbon Dioxide Anion Gap BUN Creatinine Estim Creat Clear Calc Estimated GFR POC Glucose 90 135 H Random Glucose Calcium Preliminary micro results at discharge 11/15/21 10:49 Blood Culture - Preliminary Blood - Venous No growth after 48 hours. 11/15/21 10:13 Blood Culture - Preliminary Blood - Venous No growth after 48 hours. Imaging Chest x-ray: Radiologist's impression: ITS Impressions Chest X-Ray 11/15/21 09:58 IMPRESSION: Hypoexpanded lungs with left basilar atelectasis or scarring. . No change from 05/08/2019. Discharge Plan Discharge Patient Disposition: Home Health Service Discharge Diagnosis: Orthostatic hypotension Poorly controlled diabetes Acute kidney injury skin infection? Referrals: Ernestine El [Outside] - 3-5 Days Lee Chi MD [Primary Care Provider] - 1 Week Discharge Medications: New doxycycline hyclate 100 mg Tablet 100 mg PO Q12H 5 Days Qty: 10 0RF Continued cholecalciferol (vitamin D3) 50 mcg (2,000 unit) capsule 50 mcg PO DAILY 90 Days Qty: 90 2RF (DME) FreeStyle John 14 Day Sensor Kit See Rx Instructions .ROUTE .MEDSUPPLY Qty: 2 11RF Rx Instructions: every 14 days atorvastatin 10 mg tablet 10 mg PO DAILY 90 Days Qty: 90 1RF gabapentin 300 mg capsule 600 mg PO BID Qty: 180 8RF (DME) FreeStyle Lite Strips Strip See Rx Instructions .ROUTE .MEDSUPPLY Qty: 150 11RF Rx Instructions: As directed four times a day (DME) lancets [FreeStyle Lancets] 28 gauge misc See Rx Instructions .ROUTE .MEDSUPPLY Qty: 200 11RF Rx Instructions: 4 times a day multivitamin Tablet 1 tab PO DAILY cyanocobalamin (vitamin B-12) 1,000 mcg Tablet 1,000 mcg PO DAILY ascorbic acid (vitamin C) 500 mg Tablet 500 mg PO DAILY melatonin 10 mg Tablet 20 mg PO BEDTIME PRN (Reason: Sleep) Tresiba FlexTouch U-100 100 unit/mL (3 mL) insulin pen 30 unit subcut DAILY Trulicity 1.5 mg/0.5 mL pen injector 1.5 mg subcut VILLALTA Fiasp FlexTouch U-100 Insulin 100 unit/mL (3 mL) insulin pen 12 - 15 unit subcut TIDAC midodrine 10 mg tablet 10 mg PO BID@0900,1700 Rx Instructions: do not give last dose of day after 6PM or within 4 hrs of bedtime tamsulosin 0.4 mg capsule 0.4 mg PO DAILY (DME) pen needle, diabetic [BD Bianca 2nd Gen Pen Needle] 32 gauge x 5/32 needle See Rx Instructions .ROUTE .MEDSUPPLY Qty: 400 4RF Rx Instructions: 5 times a day nitroglycerin 0.4 mg tablet, sublingual 0.4 mg sublingual ONCE PRN (Reason: Chest Pain) Discontinued Entresto 49-51 mg tablet 1 tab PO BID Discharge Orders: Discharge Order (Routine); Ordered 11/18/21 Ordered By: Estefani Chi Diet: Diabetic diet Activity on Discharge: As tolerated Stand Alone Forms: Patient Portal Discharge page Care Plan Goals: Read below Health Concerns: Read below Plan of Treatment: Read below Assessment: you were admitted to the hospital for evaluation of weakness. Found to have low blood pressure believed to be secondary to Entresto which was held. You were started on midodrine with good response over the course of hospital stay as you were evaluated by Cardiology team who recommended Discontinue Entresto noted to have acute kidney injury believed to be from dehydration. Improved back to normal baseline with IV fluids. Noticed to have significantly elevated blood sugar. Improved with usage of insulin and IV fluids. Concerns over a possible infection in your back at the nerve stimulators site. Started on doxycycline as antibiotic. Continue doxycycline for 5 more days and follow-up with your pain doctor Diabetic diet and use your insulin as prescribed To follow-up with your PCP for better control of your sugar and to follow-up with Endocrinology Discontinue Entresto To do physical therapy at home
== END 2021-11-18 14:35 | disposition home health service (06) | DRG 312 ==
LOC: HO.ED 16:52 → HO.EDOVER 17:52 → HO.S3 22:06 → HO.IMC 11-16 22:14
PROVIDERS: Physician Assistant; Admitting Provider Student in an Organized Health Care Education/Training Program; Emergency Provider Student in an Organized Health Care Education/Training Program; PCP Internal Medicine; Visit Provider Student in an Organized Health Care Education/Training Program
DX: I95.2 Hypotension due to drugs (principal); N17.9 Acute kidney failure, unspecified; N40.0 Benign prostatic hyperplasia without lower urinary tract symptoms; I25.10 Atherosclerotic heart disease of native coronary artery without angina pectoris; T46.6X5A Adverse effect of antihyperlipidemic and antiarteriosclerotic drugs, initial encounter; G89.4 Chronic pain syndrome; Z20.822 Contact with and (suspected) exposure to COVID-19; I25.5 Ischemic cardiomyopathy; E11.42 Type 2 diabetes mellitus with diabetic polyneuropathy; E11.65 Type 2 diabetes mellitus with hyperglycemia; N18.30 Chronic kidney disease, stage 3 unspecified; E11.22 Type 2 diabetes mellitus with diabetic chronic kidney disease; E86.0 Dehydration; L89.102 Pressure ulcer of unspecified part of back, stage 2; Z95.810 Presence of automatic (implantable) cardiac defibrillator; Z97.4 Presence of external hearing-aid; Z79.4 Long term (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 insulin; Z79.899 Other long term (current) drug therapy
CPT/HCPCS: 36415; 71045; 80048; 80076; 81001; 82009; 82533; 82803; 82947; 83036; 83605; 83735; 83880; 84443; 84484; 85025; 85027; 85610; 85730; 87040; 87635; 93005; 96361; 96374; 97162; 99285; J1650; J2405

== ENCOUNTER → 2021-11-26 09:03 | Outpatient (BNVA) | payer MEDICARE, SELFPAY | PROVIDERS: PCP Internal Medicine; Visit Provider Anesthesiology | DX: T88.8XXA Other specified complications of surgical and medical care, not elsewhere classified, initial encounter (principal); G89.4 Chronic pain syndrome; M47.9 Spondylosis, unspecified; M48.061 Spinal stenosis, lumbar region without neurogenic claudication; E11.9 Type 2 diabetes mellitus without complications; Z79.2 Long term (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 antibiotics; Z91.14 Patient's other noncompliance with medication regimen | CPT/HCPCS: 76705; 99212 ==

== ENCOUNTER 2021-11-26 13:12 | Outpatient (REF) | payer MEDICARE, SELFPAY ==
--- NOTE | ~2021-11-26 | US_ITS ---
EXAMINATION: US ABDOMEN LIMITED CLINICAL INFORMATION: Question soft tissue collection surrounding stimulator leads in the back COMPARISON: Previous exam February 2021 TECHNIQUE: Grayscale and color imaging of the soft tissues of the back FINDINGS: No fluid collection is seen surrounding the stimulator leads. Ultrasound guided aspiration was not performed. US/US abdomen limited IMPRESSION: No fluid collection seen.
== END 2021-11-26 13:13 | disposition home or self-care (01) ==
LOC: HO.US 13:12
PROVIDERS: PCP Internal Medicine; Visit Provider Anesthesiology
DX: Z13.89 Encounter for screening for other disorder (principal)
CPT/HCPCS: 76705

== ENCOUNTER 2021-12-17 07:52 | Outpatient (REF) | payer MEDICARE, SELFPAY ==
[2021-12-17 08:12] LABS: MANUAL DIFF FLAG NO
[2021-12-17 08:59] LABS: Basophils Absolute Auto 0.1 X10*3/uL (0.0-0.2); Basophils Percent Auto 0.9 % (0-2); Eosinophils Absolute Auto 0.1 X10*3/uL (0.0-0.4); Eosinophils Percent Auto 1.7 % (0-4); Hemoglobin 13.4 g/dl (14.0-18.0); Imm Gran Abs Auto 0.02 X10*3/uL (0.00-0.03); Imm Gran Pct Auto 0.3 % (0.0-0.4); Lymphocytes Absolute Auto 2.5 X10*3/uL (1.2-4.9); Lymphocytes Percent Auto 37.9 % (20-40); Mean Corpuscular HGB Conc 32.7 g/dl (31.0-36.0); Mean Corpuscular Hemoglobin 30.9 pg (27.0-33.0); Mean Corpuscular Volume 94.5 fL (80.0-98.0); Mean Platelet Volume 9.9 fL (9.4-12.4); Monocytes Absolute Auto 0.5 X10*3/uL (0.1-1.2); Neutrophils Absolute Auto 3.3 x10*3/uL (2.0-8.3); Neutrophils Percent Auto 51.2 % (45-73); Platelet Count 156 X10*3/uL (160-400); Red Blood Count 4.34 X10*6/uL (4.60-5.80); Red Cell Distribution Width 13.6 % (11.0-16.0); White Blood Count 6.5 X10*3/uL (4.8-10.8)
== END 2021-12-17 07:53 | disposition home or self-care (01) ==
LOC: HO.LAB 07:52
PROVIDERS: PCP Internal Medicine; Visit Provider Anesthesiology
DX: T88.8XXA Other specified complications of surgical and medical care, not elsewhere classified, initial encounter (principal)
CPT/HCPCS: 36415; 85025

== ENCOUNTER → 2021-12-25 08:02 | Outpatient (BNVA) | payer MEDICARE, SELFPAY | PROVIDERS: PCP Internal Medicine; Visit Provider Anesthesiology | DX: Z01.818 Encounter for other preprocedural examination (principal); G89.4 Chronic pain syndrome; M47.9 Spondylosis, unspecified; M48.061 Spinal stenosis, lumbar region without neurogenic claudication; Z79.2 Long term (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 antibiotics; Z96.82 Presence of neurostimulator | CPT/HCPCS: 99212 ==

== ENCOUNTER → 2022-01-08 12:44 | Outpatient (BNVA) | payer MEDICARE, SELFPAY | PROVIDERS: PCP Internal Medicine; Visit Provider Internal Medicine Endocrinology, Diabetes & Metabolism | DX: E11.69 Type 2 diabetes mellitus with other specified complication (principal); E78.5 Hyperlipidemia, unspecified; Z79.4 Long term (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 insulin | CPT/HCPCS: 82947; 99212 ==

== ENCOUNTER → 2022-02-26 08:01 | Outpatient (BNVA) | payer MEDICARE, SELFPAY | PROVIDERS: PCP Internal Medicine; Visit Provider Anesthesiology | DX: Z01.818 Encounter for other preprocedural examination (principal); M47.9 Spondylosis, unspecified; M48.061 Spinal stenosis, lumbar region without neurogenic claudication; G89.4 Chronic pain syndrome; Z79.2 Long term (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 antibiotics | CPT/HCPCS: 99212 ==

== ENCOUNTER 2022-03-16 07:33 | Inpatient (IN) | payer OTHER, SELFPAY ==
[2022-03-16] VITALS (10 sets, daily range): BP systolic 95–154; BP diastolic 43–79; PULSE 74–104; RESP 10–18; TEMP 36.2–36.6; O2SAT 95–97; BMI 25.5; BMI 27.3
--- NOTE | 2022-03-16 | ECG_ITS ---
Test Reason : ELEVATED THROP Blood Pressure : / mmHG Vent. Rate : 094 BPM Atrial Rate : 094 BPM P-R Int : 194 ms QRS Dur : 102 ms QT Int : 366 ms P-R-T Axes : 057 -81 039 degrees QTc Int : 457 ms Atrial-sensed ventricular-paced rhythm Abnormal ECG When compared with ECG of 16-MAR-2022 08:03, Electronic ventricular pacemaker has replaced Sinus rhythm Referred By: Sheridan Gold Electronically Signed By:DIGNA LANDAVERDE MD
--- NOTE | ~2022-03-16 | CT_ITS ---
EXAMINATION: CT LUMBAR SPINE CLINICAL INFORMATION: Evaluate for abscess COMPARISON: CT lumbar spine 02/21/2015 TECHNIQUE: Axial images were obtained through the lumbar spine following the intravenous administration of contrast administered as part of a CT chest study performed the same day. This CT examination was performed using dose optimization techniques as appropriate, variously including the following: *Automated exposure control *Adjustment of mA and/or kV according to patient size (this includes techniques or standardized protocols for targeted exams where dose is matched to indication/reason for exam; i.e. extremities or head) *Use of iterative reconstruction technique DLP: 717 mGy-cm FINDINGS: Normal alignment of the lumbar spine. No subluxation. No acute fracture. There is a chronic appearing inferior endplate Schmorl's node/compression deformity of L2, new since 2014. No appreciable endplate destructive or aggressive-appearing erosive changes identified. Advanced multilevel degenerative disc disease characterized by moderate and moderate to severe multilevel disc height loss, vacuum disc phenomena, endplate sclerosis and proliferative change most advanced at L3-L4 through L5-S1 with lower lumbar facet arthrosis. Partial defects. Spinal stimulator lead ascends into the dorsal spinal canal entering at the T12-L1 level extending into the visualized lower thoracic spine. Limited assessment of soft tissues and spinal canal contents via CT. No gross epidural fluid collection-limited assessment. No paravertebral or retroperitoneal fluid collection identified. Small low-density cyst in the midpole the left kidney, benign appearance. No follow-up recommended. Normal caliber abdominal aorta. Moderate vascular calcifications. Incompletely imaged 2.9 cm peripherally calcified structure, possibly splenic artery aneurysm limited assessment on series 28 image 1. There is infiltration of the subcutaneous fat along the course of the patient's spinal stimulator leads in the right para midline soft tissues. No appreciable low-density peripheral enhancing collection. No soft tissue gas identified. CT/CT lumbar spine w IV con IMPRESSION: 1. Infiltration of the subcutaneous fat along the course of the patient's spinal stimulator leads in the right para midline soft tissues. Findings nonspecific and may represent soft tissue inflammation/cellulitis or phlegmon versus scar tissue. No appreciable low-density peripheral enhancing well-formed abscess. No soft tissue gas. 2. No appreciable epidural or paravertebral fluid collection-limited assessment via CT. 3. Advanced multilevel degenerative disc disease. 4. Incompletely imaged 2.9 cm peripherally calcified structure, possibly splenic artery aneurysm.
--- NOTE | ~2022-03-16 | CT_ITS ---
EXAMINATION: CT ANGIOGRAM OF THE CHEST WITH AND WITHOUT CONTRAST (CT PULMONARY ANGIOGRAM FOR PE) CLINICAL INFORMATION: Reason for Exam syncope, elevated d-dimer COMPARISON: CT chest 02/06/2018 TECHNIQUE: Prior to contrast administration, noncontrast localization images were obtained. Subsequently, multidetector volumetric imaging was performed from the thoracic inlet to below the diaphragms following the administration of 80 mL Omnipaque 350 intravenous contrast. No contrast reaction reported Sagittal, coronal, and MIP oblique sagittal reformatted images were obtained on the CT workstation, uploaded to PACS, and reviewed. This CT examination was performed using dose optimization techniques as appropriate, variously including the following: *Automated exposure control *Adjustment of mA and/or kV according to patient size (this includes techniques or standardized protocols for targeted exams where dose is matched to indication/reason for exam; i.e. extremities or head) *Use of iterative reconstruction technique Total exam dose-length product 507 mGy-cm FINDINGS: QUALITY OF STUDY/CONTRAST BOLUS: Satisfactory. PULMONARY ARTERIES: No central or large segmental pulmonary emboli. THORACIC AORTA: No aneurysm or dissection. The thoracic aorta is tortuous. Three-vessel arch is present with widely tortuous but patent great vessels. LUNG: There is worsening of fibrotic changes in the lungs. Previously, there has been subpleural infiltrates with associated bibasilar bronchiectasis. Appearances are slightly worse than prior involving more of the periphery of the lungs. No focal consolidation and is seen. No suspicious lung masses are detected. PLEURA: No pleural effusion or pneumothorax. MEDIASTINUM: Normal heart size. A left chest wall pacemaker is present. Extensive coronary calcification is seen. No pericardial effusion. No hilar or mediastinal lymphadenopathy. No evidence of septal bowing or right heart strain. CHEST WALL/AXILLA: No axillary or internal mammary lymphadenopathy. OSSEOUS STRUCTURES: No acute or suspicious osseous abnormality. 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 No reflux of contrast into the hepatic veins to suggest elevated right heart pressures. CT/CT angio chest PE protocol IMPRESSION: 1. No evidence of pulmonary emboli. 2. Worsening of fibrotic changes in the lungs. 3. Unchanged large calcified splenic artery aneurysm VTE: negative
--- NOTE | ~2022-03-16 | XR_ITS ---
EXAMINATION: XR CHEST CLINICAL INFORMATION: Chest pain COMPARISON: 11/15/2021 TECHNIQUE: Frontal view of the chest was obtained. FINDINGS: Poor inspiratory effort. Sternal wires and left-sided pacer and cardiac pads overlie the chest. No congestive change. Heart size borderline with normal caliber pulmonary vessels. Lungs clear. XR/XR chest 1V IMPRESSION: No evidence for congestive failure.
--- NOTE | ~2022-03-16 | CT_ITS ---
EXAMINATION: CT HEAD WITHOUT CONTRAST CLINICAL INFORMATION: Syncope COMPARISON: Head CT 02/15/2016 TECHNIQUE: Imaging was performed from the skull base to vertex without intravenous administration of contrast. This CT examination was performed using dose optimization techniques as appropriate, variously including the following: *Automated exposure control *Adjustment of mA and/or kV according to patient size (this includes techniques or standardized protocols for targeted exams where dose is matched to indication/reason for exam; i.e. extremities or head) *Use of iterative reconstruction technique Total exam dose length product: 787 mGy-cm FINDINGS: Since prior CT, interval development of small low-density subdural collection overlying the high left posterior frontal and adjacent parietal lobe measuring approximately 5 mm in maximal thickness consistent with either chronic subdural hematoma or hygroma. No acute density intramural or extra-axial hemorrhage. No other fluid collection or mass. No midline shift or herniation. Basal cisterns are patent. The malave-white matter differentiation is maintained. No territorial encephalomalacia. Proportional prominence of the ventricles and sulcal spaces is consistent with mild volume loss. Patchy periventricular and deep white matter hypoattenuation is consistent with mild small vessel ischemic changes. Prominent calcifications of the falx cerebri and tentorium noted. No calvarial fracture or soft tissue abnormality. The mastoid air cells and visualized portions of the paranasal sinuses are well aerated. CT/CT head/brain wo IV con IMPRESSION: 1. Interval development of small low-density subdural collection overlying the high left posterior frontal and adjacent parietal lobes measuring approximately 5 mm in maximal thickness consistent with chronic subdural hematoma or hygroma. 2. No acute intracranial hemorrhage. No midline shift or herniation. 3. Mild cerebral atrophy and chronic small vessel ischemic white matter change.
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
--- NOTE | 2022-03-16 07:49 | ECG_ITS ---
Test Reason : RESPIRATORY ARREST Blood Pressure : / mmHG Vent. Rate : 099 BPM Atrial Rate : 099 BPM P-R Int : 148 ms QRS Dur : 116 ms QT Int : 410 ms P-R-T Axes : 041 -86 090 degrees QTc Int : 526 ms Sinus rhythm with Premature atrial complexes Left anterior fascicular block Intra-ventricular conduction delay incomplete transition Prolonged QT Abnormal ECG When compared with ECG of 15-NOV-2021 18:40, Sinus rhythm has replaced Electronic ventricular pacemaker Referred By: Andrew Castellanos Electronically Signed By:DIGNA LANDAVERDE MD
--- NOTE | 2022-03-16 08:01 | PC.NURSE ---
Provider aware of BP
[2022-03-16] MEDS: 0.9 % Sodium Chloride 1,000 ML 100 ML IVCONT ×2 (08:39→20:39)
[2022-03-16 09:10] LABS: Basophils Absolute Auto 0.1 X10*3/uL (0.0-0.2); Basophils Percent Auto 0.7 % (0-2); Eosinophils Absolute Auto 0.1 X10*3/uL (0.0-0.4); Eosinophils Percent Auto 0.9 % (0-4); Hematocrit 39.6 % (42.0-52.0); Hemoglobin 12.6 g/dl (14.0-18.0); Imm Gran Abs Auto 0.03 X10*3/uL (0.00-0.03); Imm Gran Pct Auto 0.4 % (0.0-0.4); Lymphocytes Percent Auto 13.9 % (20-40); Mean Corpuscular HGB Conc 31.8 g/dl (31.0-36.0); Mean Corpuscular Hemoglobin 30.3 pg (27.0-33.0); Mean Corpuscular Volume 95.2 fL (80.0-98.0); Mean Platelet Volume 10.1 fL (9.4-12.4); Monocytes Absolute Auto 0.5 X10*3/uL (0.1-1.2); Monocytes Percent Auto 6.9 % (2-11); Neutrophils Absolute Auto 5.7 x10*3/uL (2.0-8.3); Neutrophils Percent Auto 77.2 % (45-73); Platelet Count 109 X10*3/uL (160-400); Red Blood Count 4.16 X10*6/uL (4.60-5.80); Red Cell Distribution Width 13.2 % (11.0-16.0); White Blood Count 7.4 X10*3/uL (4.8-10.8)
[2022-03-16 09:30] LABS: Anion Gap 15 (12-20); Blood Urea Nitrogen 29 mg/dL (9-16); Calcium 9.6 mg/dL (8.4-10.2); Carbon Dioxide 27 mmol/L (22-29); Chloride 100 mmol/L (96-108); Creatinine Clr Calc Pharmacy 60.5; Estimated Glomerular Filt Rate > 60; Glucose Random 208 mg/dL (60-115); Potassium 4.2 mmol/L (3.3-5.1); Sodium 138 mmol/L (135-145)
[2022-03-16 11:16] LABS: Troponin-I High Sensitivity 39.4 ng/L (<3.5-35.0)
[2022-03-16 11:50] LABS: COVID-19 Test Negative (Negative); IDNOW Serial# 16C4AD1C
[2022-03-16 12:04] LABS: Glucose, Whole Blood 174 mg/dL (60-115)
--- NOTE | 2022-03-16 12:05 | PC.NURSE ---
Patient gve this RN and Provider at [facility] card for defibrillator. This RN called number provided on card and is awaiting a call back. Patients pacemaker was also interegated this mornuing
--- NOTE | 2022-03-16 12:53 | PHA.MEDREC ---
Pharmacy Consult ? Medication Reconciliation Pharmacy has completed the medication reconciliation. Patient had med box and was discharged from [facility] Last week. Called to confirm [place]aden
[2022-03-16 12:55] LABS: Magnesium 1.5 mg/dL (1.6-2.6)
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
--- NOTE | 2022-03-16 13:52 | PC.NURSE ---
No pumps on unit to start medication. Charge nurse notified
[2022-03-16 13:56] LABS: D Dimer High Sensitivity 1048 NG/ML
[2022-03-16] MEDS: Magnesium Sulfate/H2O 2 GM/50 ML PIGGYBACK IV (14:50)
[2022-03-16] MEDS: Midodrine HCl 10 MG TABLET PO (16:24)
[2022-03-16] MEDS: iohexoL 350 MG/ML 75 ML INFUS..BTL 80 ML IV (18:27)
--- NOTE | 2022-03-16 18:54 | PC.NURSE ---
POC/ sliding scale insulin not given due to dinner not being on unit before patient leaving for [facility]
[2022-03-16 19:54] LABS: Glucose, Whole Blood 263 mg/dL (60-115)
[2022-03-16] MEDS: Tamsulosin HCL 0.4 MG CAPSULE PO (20:30)
[2022-03-16] MEDS: Melatonin 3 MG TABLET PO (20:30)
[2022-03-16] MEDS: Acetaminophen 325 MG TABLET 650 MG PO (20:31)
[2022-03-16] MEDS: Atorvastatin Calcium 10 MG TABLET PO (20:31)
[2022-03-16] MEDS: traMADoL HCL 50 MG TABLET PO (20:31)
[2022-03-16] MEDS: Gabapentin 300 MG CAPSULE 600 MG PO (20:31)
[2022-03-16] MEDS: Insulin Lispro 100 UNIT/ML 3 ML VIAL SUBCUT (20:32)
[2022-03-16] MEDS: 0.9 % Sodium Chloride Flush 3 ML SYRINGE IVFLUSH (20:41)
[2022-03-16 21:49] LABS: Appearance Urine Clear; Color Urine Yellow; Glucose Urine UA >=1000 mg/dL (Negative); Leukocyte Esterase Urine Negative (Negative); Nitrite Urine Negative (Negative); Specific Gravity - Urine >= 1.030 (1.005-1.025); UMIC TRIGGER UACC YES; Urine Blood Negative (Negative); Urine Ketones Negative (Negative); Urine Protein Trace mg/dL (Neg-Trace)
[2022-03-16 22:04] LABS: Bacteria Urine None Seen (None Seen); Hyaline Casts Urine 0-2 /LPF (0-2); RBC Urine 0-2 /HPF (0-2); Squamous Epithelial Cell Urine 0-2 /HPF (0-2); WBC Urine 0-5 /HPF (0-5)
[2022-03-17] VITALS (7 sets, daily range): BP systolic 104–137; BP diastolic 59–74; PULSE 68–87; RESP 15–18; TEMP 36.2–36.6; O2SAT 97–99
[2022-03-17] MEDS: 0.9 % Sodium Chloride 1,000 ML 100 ML IVCONT ×2 (05:53→14:28)
[2022-03-17 08:13] LABS: Glucose, Whole Blood 118 mg/dL (60-115)
--- NOTE | 2022-03-17 09:03 | MHC.CM.PN ---
CM met with Patient at bedside and addressed IMM with him, providing him with the original and placing a copy on the chart. Patient lives alone in a one story house and he has 3 Grandsons who are in and out throughout the day.Patient has been at [facility] recently and is now home and active with [facility]. Home/resume [facility] is the goal and CM has initiated and will follow for dc planning. Patient uses both a cane and a walker to assist with mobility. Patient has received Moderna/Covid vax x4 and his PCP is Dr. Lee Chi.
[2022-03-17] MEDS: 0.9 % Sodium Chloride Flush 3 ML SYRINGE IVFLUSH ×2 (10:07→15:37)
[2022-03-17] MEDS: Acetaminophen 325 MG TABLET 650 MG PO ×2 (10:07→20:15)
[2022-03-17] MEDS: Ascorbic Acid 500 MG TABLET PO (10:07)
[2022-03-17] MEDS: Cholecalciferol (Vitamin D3) 25 MCG TABLET 50 MCG PO (10:07)
[2022-03-17] MEDS: Midodrine HCl 10 MG TABLET PO ×2 (10:07→16:57)
[2022-03-17] MEDS: Insulin Glargine,Hum.rec.anlog 100 UNIT/ML 10 ML VIAL 13 UNIT SUBCUT (10:08)
[2022-03-17] MEDS: Multivitamin TABLET 1 TAB PO (10:08)
[2022-03-17] MEDS: Gabapentin 300 MG CAPSULE 600 MG PO ×2 (10:08→20:15)
[2022-03-17] MEDS: Cyanocobalamin (Vitamin B-12) 1,000 MCG TABLET 1000 MCG PO (10:08)
--- NOTE | 2022-03-17 10:21 | HO.PM.IMPN ---
Subjective Subjective Date of Service: 03/17/22 Interval History: Seen in follow up for syncope and respiratory arrest Interval history: Patient repeating history he gave yesterday despite reminding him that I did evaluate him and discuss his hx hypotension, hypoglycemia, and dehydration. He is otherwise feeling well. No lightheadedness, sob, palpitations, chest pain, or further syncopal episodes. He has had three episodes of diarrhea this morning. Afebrile, no abdominal pain, nausea, vomiting, melena, hematochezia Review of Systems General: No fevers, malaise, unintentional weight loss HEENT: No blurred vision, diplopia Cardiovascular: No chest pain, palpitations, or leg edema Respiratory: No shortness of breath, wheezing, cough GI: +diarrhea. No abdominal pain, nausea, vomiting, constipation : No dysuria, hematuria, increased urinary frequency, decreased urinary output Neuro: No headaches, weakness, paresthesias Skin: No rashes or lesions Physical Exam Vital Signs: Vital Signs: Last Vital Signs Temp 97.6 F 03/17/22 07:54 Pulse 68 03/17/22 07:54 Resp 18 03/17/22 07:54 BP 129/61 03/17/22 07:54 Pulse Ox 97 03/17/22 07:54 O2 Del Method 03/17/22 07:54 BMI result Body Mass Index 27.3 Constitutional - Awake and Alert, No apparent distress Eyes - PERRLA, EOMI Cardiovascular - S1S2, RRR, No edema Respiratory - Normal lung expansion, Normal respiratory effort, No respiratory distress, CTA bilaterally Gastrointestinal - NT / ND; +BS; No rebound or guarding Extremities - no calf tenderness bilaterally, no swelling Skin - Warm/Dry Neurological - Alert & oriented x3 but very repetative on further questioning. Psychological - Appropriate affect Objective Data Active Medications Acetaminophen (Acetaminophen 325 Mg Tablet) 650 mg PO Q6H PRN PRN Reason: Pain, Mild (Pain Scale 1-3) Acetaminophen (Acetaminophen 325 Mg Tablet) 650 mg PO BID [facility] Last Admin: 03/17/22 10:07 Dose: 650 mg Documented By: JUAN Ascorbic Acid (Ascorbic Acid 500 Mg Tablet) 500 mg PO DAILY [facility] Last Admin: 03/17/22 10:07 Dose: 500 mg Documented By: JUAN Atorvastatin Calcium (Atorvastatin Calcium 10 Mg Tablet) 10 mg PO BEDTIME [facility] Last Admin: 03/16/22 20:31 Dose: 10 mg Documented By: DAVID Cyanocobalamin (Cyanocobalamin (Vitamin B-12) 1,000 Mcg Tablet) 1,000 mcg PO DAILY [facility] Last Admin: 03/17/22 10:08 Dose: 1,000 mcg Documented By: JUAN Dextrose (Dextrose 50 % 25 Gm/50 Ml Syringe) 25 gm IVPUSH Q15M PRN; Protocol PRN Reason: per Hypoglycemia Standing Ord. Gabapentin (Gabapentin 300 Mg Capsule) 600 mg PO BID [facility] Last Admin: 03/17/22 10:08 Dose: 600 mg Documented By: JUAN Glucose (Glucose Gel 15 Gm Gel..Gram.) 15 gm PO Q15M PRN; Protocol PRN Reason: per Hypoglycemia Standing Ord. Sodium Chloride (Ns) 1,000 mls @ 100 mls/hr IVCONT .Q10H [facility] Last Admin: 03/17/22 05:53 Dose: 100 mls/hr Documented By: DAVID Insulin Glargine (Insulin Glargine,Hum.Rec.Anlog 100 Unit/Ml 10 Ml Vial) 13 unit SUBCUT DAILY [facility] Last Admin: 03/17/22 10:08 Dose: 13 unit Documented By: JUAN Insulin Human Lispro (Insulin Lispro 100 Unit/Ml 3 Ml Vial) 0 unit SUBCUT QIDACHS [facility]; Protocol Last Admin: 03/17/22 08:06 Dose: Not Given Documented By: SHAGGY Non-Admin Reason: No Insulin Coverage Melatonin (Melatonin 3 Mg Tablet) 3 mg PO BEDTIME PRN PRN Reason: Insomnia Last Admin: 03/16/22 20:30 Dose: 3 mg Documented By: DAVID Midodrine (Midodrine Hcl 10 Mg Tablet) 10 mg PO BID@0900,1700 [facility] Last Admin: 03/17/22 10:07 Dose: 10 mg Documented By: JUAN Multivitamins/Vitamin C (Multivitamin Tablet) 1 tab PO DAILY [facility] Last Admin: 03/17/22 10:08 Dose: 1 tab Documented By: JUAN Nitroglycerin (Nitroglycerin 0.4 Mg Tab.Subl) 0.4 mg SUBLINGUAL ONCE PRN PRN Reason: Chest Pain Pharmacy Consult (Consult Rx Perform Med Rec) 1 each MISCELLANE ONCE PRN PRN Reason: Consult order Pharmacy Consult (Consult Rx Vancomycin Dosing) 1 each MISCELLANE DAILY PRN PRN Reason: Consult order Sodium Chloride (0.9 % Sodium Chloride Flush 3 Ml Syringe) 3 ml IVFLUSH QSHIFT [facility] Last Admin: 03/17/22 10:07 Dose: 3 ml Documented By: JUAN Tamsulosin HCl (Tamsulosin Hcl 0.4 Mg Capsule) 0.4 mg PO BEDTIME [facility] Last Admin: 03/16/22 20:30 Dose: 0.4 mg Documented By: DAVID Tramadol HCl (Tramadol Hcl 50 Mg Tablet) 50 mg PO Q6H PRN PRN Reason: Pain, Moderate (Pain Scale 4-6 Last Admin: 03/16/22 20:31 Dose: 50 mg Documented By: DAVID Vitamin D (Cholecalciferol (Vitamin D3) 25 Mcg Tablet) 50 mcg PO DAILY [facility] Last Admin: 03/17/22 10:07 Dose: 50 mcg Documented By: JUAN Labs CBC & Chem 7: 03/16/22 08:51 03/17/22 13:22 Labs: Laboratory Results - last 24 hr 03/16/22 03/16/22 03/16/22 08:51 10:30 11:09 D-Dimer High Sensitivty POC Glucose Magnesium 1.5 L Troponin I High Sens 39.4 H D Urine Color Urine Appearance Urine pH Ur Specific [place] Urine Protein Urine Glucose (UA) Urine Ketones Urine Blood Urine Nitrite Ur Leukocyte Esterase Urine RBC Urine WBC Ur Squamous Epith Cells Urine Bacteria Hyaline Casts COVID-19 ([facility]IS) Negative COVID-19 Clin Com See Note 03/16/22 03/16/22 03/16/22 11:53 13:41 19:50 D-Dimer High Sensitivty 1048 POC Glucose 174 H 263 H Magnesium Troponin I High Sens Urine Color Urine Appearance Urine pH Ur Specific [place] Urine Protein Urine Glucose (UA) Urine Ketones Urine Blood Urine Nitrite Ur Leukocyte Esterase Urine RBC Urine WBC Ur Squamous Epith Cells Urine Bacteria Hyaline Casts COVID-19 (ERIS) COVID-19 Clin Com 03/16/22 03/17/22 21:30 07:24 D-Dimer High Sensitivty POC Glucose 118 H Magnesium Troponin I High Sens Urine Color Yellow Urine Appearance Clear Urine pH 5.0 Ur Specific [place] >= 1.030 H Urine Protein Trace Urine Glucose (UA) >=1000 H Urine Ketones Negative Urine Blood Negative Urine Nitrite Negative Ur Leukocyte Esterase Negative Urine RBC 0-2 Urine WBC 0-5 Ur Squamous Epith Cells 0-2 Urine Bacteria None Seen Hyaline Casts 0-2 COVID-19 ([facility]IS) COVID-19 Clin Com Microbiology Microbiology Results: Microbiology 03/16/22 Unknown Gram Stain - Final Back Routine Culture - Preliminary Culture in progress. Assessment and Plan (1) Syncope and collapse: Status: Acute (2) Respiratory arrest: Status: Acute Plan ?81-year-old male with history insulin-dependent brittle type 2 diabetes with history hyperglycemia and hypoglycemia, chronic pain syndrome with spinal cord stimulator in place following with [facility], hypertension, orthostatic hypotension, diabetic neuropathy, diabetic nephropathy with CKD stage 3, dyslipidemia, history of cardiomyopathy on Entresto, and coronary artery disease s/p bypass x2 with ICD in place (Dr. Reinoso), history TIA who lives at home by himself with his 3 grandsons who rotate throughout the day assisting with his care admitted for further Evaluation of syncope and collapse with respiratory arrest and question of cardiac arrest. # syncope and collapse -no hypoglycemia reported prior to event or since arrival to the hospital. 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 -D-Dimer >1000. CTA chest negative for PE -Neurology consult placed to evaluate for possible seizure as cause for syncope and respiratory arrest #Respiratory arrest- resolved -Pt arrest witnessed by son requiring chest compressions and bag valve mask. Unclear if there was truly a cardiac arrest though compressions were administered intially by first responders. EMS felt a pulse after 1 minute compressions and further respiratory support provided with [id number] and supplemental O2.? Patient breathing spontaneously on arrival to ED with oximetry 95% on room air -ICD reviewed without evidence of cardiac arrest or unstable arrhythmia -patient hemodynamically stable #Tunneling wound overlying spinal cord stimulator -Follows closely with Dr. Verdin at [facility] with longstanding nonhealing surgical wound following SCS placement in Nov 2020 with history fluid collection with apiration of contents by IR with negative gram stain/cultures. -Gram stain with 1+ gram positive cocci, 4+ polys, 1+ epithelial cells. Culture pending -Ct lumbar spine w contrast ordered showing infiltration of the subcutaneous fat along course of the patient's spinal stimulator leading to the right paramidline soft tissues possibly representing soft tissue inflammation versus cellulitis or phlegmon versus scar tissue. No well-formed abscess or soft tissue gas -id consulted and given a single dose vancomycin. Case discussed with ID does not recommend continued antibiotics but does recommend removal of spinal cord stimulator -case discussed with Dr. Verdin at [facility] pain management who follows with the patient and had been managing non healing wound. Recommending removal of device (possibly outpt ) given pt does not get relief from this and infection risk. Patient is in agreement. Message sent to Dr. Verdin regarding patient decision. # brittle insulin-dependent type 2 diabetes with history hyperglycemia and hypoglycemia -Glucose levels have been relatively stable while in hospital without any hypoglycemia and only minimal hyperglycemia postpradnially. Patient is quite forgetful and manages his own insulin despite his grandsons' assisting with his care at various times of the time. Question of medication misuse secondary to memory impairment leading to hypoglycemic episodes that could lead to syncopal episdes. Pt/OT evals ordered recommending STR. Upon return home, another alliance party should be managing patient's medications- his grandsons who already assist him vs [facility] if possible. 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 Advised to bring in copy of healthcare proxy Dispo: STR pending neuro evaluation. Again recommend that patient's insulin/medications be managed by another alliance party given his memory impairment with concern for medication mismanagement and history of hypo/hyperglycemia and hypotension. Patient requires ongoing inpatient stay following episode of respiratory arrest with syncope and collapse for further investigation into etiology of event which cannot be performed outpt as pt requires close monitoring for recurrence as well as expert consultation. Quality Stroke Does the patient have a stroke diagnosis?: No VTE Prior VTE?: No VTE Risk Level:: Medical - moderate - high VTE Device Contraindication: Treatment Not Indicated VTE Drug Contraindication: N/A - Med Ordered
[2022-03-17 11:08] LABS: Glucose, Whole Blood 223 mg/dL (60-115)
[2022-03-17] MEDS: Insulin Lispro 100 UNIT/ML 3 ML VIAL SUBCUT ×3 (12:43→20:20)
--- NOTE | 2022-03-17 13:39 | PC.NURSE ---
per jean claude brady, ok to give vanco late following call to pharmacy [facility] deliver late vanco.
[2022-03-17 13:45] LABS: Creatinine Clr Calc Pharmacy 74.8; Estimated Glomerular Filt Rate > 60
--- NOTE | 2022-03-17 13:58 | W.PM.IDCN ---
History of Present Illness Data of Consult Service Date: 03/17/22 Requesting physician: Sheridan Gold Primary Care Provider: Lee Chi MD [facility] Reason for consult: possible infection spinal cord stimulator He presents with syncope outside home while grandson was helping him. I am asked to see about antibiotics for spinal cord stimulator ?infection. He has had that placed over a year ago and he claims he feels pressure over area and has clear drainage from top of incision rather often. He denies purulence or warmth to area. He has no fever or chills. 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 BPH (benign prostatic hyperplasia) CAD (coronary artery disease) Chronic pain syndrome Chronic pain syndrome CKD stage 3 due to type 2 diabetes mellitus COVID-19 vaccine administered Diabetes type 2, uncontrolled Diabetic nephropathy associated with type 2 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 Dyslipidemia (high LDL; low HDL) Fluid collection at surgical site Hard of hearing History of anal fissures Hx of cardiomyopathy Hypertension Ischemic cardiomyopathy 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 Obesity Orthostatic hypotension Poorly controlled diabetes mellitus Pre-op evaluation Spinal stenosis, lumbar region without neurogenic claudication Spondylosis, unspecified TIA (transient ischemic attack) Type 2 diabetes mellitus with hyperlipidemia Vitamin D deficiency Family History Family History Father Colon cancer Lung cancer Mother Diabetes Family history: reviewed and not pertinent Surgical History Surgical History H/O colonoscopy History of bowel resection History of cardiac defibrillator placement History of surgery Hx of cataract surgery Hx of cholecystectomy Hx of coronary artery bypass graft Hx of hernia repair Social History Social History Household Members: Other Household Members Other:: grandsons but alone alot Housing: House Do you presently have visiting nurse or other home services: No Alcohol intake: current Alcohol intake frequency: does not drink Patient Tobacco Use Status: Never used Tobacco e-Cigarette/Vaping Use: Never Used Second Hand Smoke Exposure: No service: No Current occupational status: retired Cognitive needs: Yes Hearing needs: Yes Vision needs: Yes Meds Allergies Allergy/AdvReac Type Severity Reaction Status Date / Time No Known Allergies Allergy Verified 02/26/22 08:11 [No Known Allergies*] Active Medications: Current Medications Acetaminophen (Acetaminophen 325 Mg Tablet) 650 mg PO Q6H PRN PRN Reason: Pain, Mild (Pain Scale 1-3) Acetaminophen (Acetaminophen 325 Mg Tablet) 650 mg PO BID [facility] Last Admin: 03/17/22 10:07 Dose: 650 mg Ascorbic Acid (Ascorbic Acid 500 Mg Tablet) 500 mg PO DAILY [facility] Last Admin: 03/17/22 10:07 Dose: 500 mg Atorvastatin Calcium (Atorvastatin Calcium 10 Mg Tablet) 10 mg PO BEDTIME [facility] Last Admin: 03/16/22 20:31 Dose: 10 mg Cyanocobalamin (Cyanocobalamin (Vitamin B-12) 1,000 Mcg Tablet) 1,000 mcg PO DAILY [facility] Last Admin: 03/17/22 10:08 Dose: 1,000 mcg Dextrose (Dextrose 50 % 25 Gm/50 Ml Syringe) 25 gm IVPUSH Q15M PRN; Protocol PRN Reason: per Hypoglycemia Standing Ord. Gabapentin (Gabapentin 300 Mg Capsule) 600 mg PO BID [facility] Last Admin: 03/17/22 10:08 Dose: 600 mg Glucose (Glucose Gel 15 Gm Gel..Gram.) 15 gm PO Q15M PRN; Protocol PRN Reason: per Hypoglycemia Standing Ord. Sodium Chloride (Ns) 1,000 mls @ 100 mls/hr IVCONT .Q10H [facility] Last Admin: 03/17/22 05:53 Dose: 100 mls/hr Insulin Glargine (Insulin Glargine,Hum.Rec.Anlog 100 Unit/Ml 10 Ml Vial) 13 unit SUBCUT DAILY [facility] Last Admin: 03/17/22 10:08 Dose: 13 unit Insulin Human Lispro (Insulin Lispro 100 Unit/Ml 3 Ml Vial) 0 unit SUBCUT QIDACHS [facility]; Protocol Last Admin: 03/17/22 12:43 Dose: 4 unit Melatonin (Melatonin 3 Mg Tablet) 3 mg PO BEDTIME PRN PRN Reason: Insomnia Last Admin: 03/16/22 20:30 Dose: 3 mg Midodrine (Midodrine Hcl 10 Mg Tablet) 10 mg PO BID@0900,1700 [facility] Last Admin: 03/17/22 10:07 Dose: 10 mg Multivitamins/Vitamin C (Multivitamin Tablet) 1 tab PO DAILY [facility] Last Admin: 03/17/22 10:08 Dose: 1 tab Nitroglycerin (Nitroglycerin 0.4 Mg Tab.Subl) 0.4 mg SUBLINGUAL ONCE PRN PRN Reason: Chest Pain Pharmacy Consult (Consult Rx Perform Med Rec) 1 each MISCELLANE ONCE PRN PRN Reason: Consult order Pharmacy Consult (Consult Rx Vancomycin Dosing) 1 each MISCELLANE DAILY PRN PRN Reason: Consult order Sodium Chloride (0.9 % Sodium Chloride Flush 3 Ml Syringe) 3 ml IVFLUSH QSHIFT [facility] Last Admin: 03/17/22 10:07 Dose: 3 ml Tamsulosin HCl (Tamsulosin Hcl 0.4 Mg Capsule) 0.4 mg PO BEDTIME [facility] Last Admin: 03/16/22 20:30 Dose: 0.4 mg Tramadol HCl (Tramadol Hcl 50 Mg Tablet) 50 mg PO Q6H PRN PRN Reason: Pain, Moderate (Pain Scale 4-6 Last Admin: 03/16/22 20:31 Dose: 50 mg Vitamin D (Cholecalciferol (Vitamin D3) 25 Mcg Tablet) 50 mcg PO DAILY [facility] Last Admin: 03/17/22 10:07 Dose: 50 mcg Home Medications Medication Instructions Recorded Confirmed Last Taken Type tamsulosin 0.4 mg capsule 0.4 mg PO BEDTIME 01/30/20 03/16/22 03/15/22 History nitroglycerin 0.4 mg sublingual 0.4 mg sublingual ONCE PRN Chest 07/15/20 03/16/22 Unknown History tablet Pain midodrine 10 mg tablet 10 mg PO BID@0900,1700 11/04/21 03/16/22 03/15/22 History ascorbic acid (vitamin C) 500 mg 500 mg PO DAILY 11/15/21 03/16/22 03/15/22 History tablet cyanocobalamin (vitamin B-12) 1,000 mcg PO DAILY 11/15/21 03/16/22 03/15/22 History 1,000 mcg tablet insulin aspart 12 - 15 unit subcut TIDAC 11/15/21 03/16/22 03/15/22 History (niacinamide)(U-100) 100 unit/mL(3 mL) subcutaneous pen (Fiasp FlexTouch U-100 Insulin) insulin degludec 100 unit/mL (3 24 unit subcut DAILY 11/15/21 03/16/22 03/16/22 History mL) subcutaneous pen (Tresiba FlexTouch U-100 insulin) multivitamin 1 tab PO DAILY 11/15/21 03/16/22 03/15/22 History acetaminophen 325 mg tablet 650 mg PO BID 03/16/22 03/16/22 Unknown History atorvastatin 10 mg tablet 10 mg PO BEDTIME 03/16/22 03/16/22 03/15/22 History dulaglutide 3 mg/0.5 mL 3 mg subcut SA 03/16/22 03/16/22 03/14/22 History subcutaneous pen injector (Trulicity) melatonin 3 mg tablet 3 mg PO BEDTIME PRN Insomnia 03/16/22 03/16/22 Unknown History tramadol 50 mg tablet 50 mg PO Q6H PRN Pain 03/16/22 03/16/22 Unknown History Physical Exam Vital Signs: Vital Signs: Last Vital Signs Temp 97.8 F 03/17/22 12:00 Pulse 73 03/17/22 12:00 Resp 16 03/17/22 12:00 BP 137/74 03/17/22 12:00 Pulse Ox 97 03/17/22 12:00 O2 Del Method 03/17/22 12:00 BMI result Body Mass Index 27.3 Const: General: cooperative HEENT: Head: Yes normal to inspection Face and sinus: Yes normal facial exam Mouth: Normal oral and palatal mucosa present Teeth and gingiva: dentition normal Eyes: General: appearance normal, both eyes and all related structures Pupils: Equal, round and reactive pupils present Resp: Effort & Inspection: normal respiratory effort Cardio: Rate: regular rate Rhythm: regular rhythm GI: Palpation (GI): Soft to palpation and nontender Back/Spine/Pelvis: Other: stimulator felt as lump on lower spine there is clear fluid top of area drop,no purulence or cellulitis Skin: General skin exam: no rashes or lesions noted Neuro: General: moves all extremities Cranial nerves: Yes Equal, round and reactive pupils present Extrem: General: Yes normal to inspection Psych: Appearance: grossly normal Results Labs CBC & Chem 7: 03/16/22 08:51 03/17/22 13:22 Labs: BMP 03/17/22 13:22 Creatinine 0.85 Urine 03/16/22 Range/Units 21:30 Urine Color Yellow Urine Appearance Clear Urine pH 5.0 (5.0-9.0) Ur Specific [place] >= 1.030 H (1.005-1.025) Urine Protein Trace (Neg-Trace) mg/dL Urine Glucose (UA) >=1000 H (Negative) mg/dL Microbiology Microbiology Results: Microbiology 03/16/22 Unknown Back Gram Stain - Final 03/16/22 Unknown Back Routine Culture - Preliminary Culture in progress. Assessment and Plan (1) Syncope and collapse: Status: Acute (2) Fluid collection at surgical site: Status: Acute There is clear fluid only seen in area of pressure There is no evidence of fever ,yellow drainage or other evidence of infection. Plan Stop antibiotics Proceed to removal of device per Pain Management.
[2022-03-17 16:06] LABS: Glucose, Whole Blood 206 mg/dL (60-115)
--- NOTE | 2022-03-17 17:40 | P.CNNE_ITS ---
History of Present Illness Data of Consult Service Date: 03/17/22 Primary Care Provider: Lee Chi MD [facility] Reason for consult: Syncope and respiratory arrest This is a 81-year-old male with history of insulin-dependent brittle type 2 diabetes, chronic pain syndrome with spinal cord stimulator in place , hyp ertension, orthostatic hypotension, diabetic neuropathy, diabetic nephropathy with CKD stage 3, dyslipidemia, cardiomyopathy on Entresto, and coronary artery disease s/p bypass x2 with ICD in place. TIA, who pesented to [facility] [place] an episode of respiratory versus cardiac arrest.? His grandson, Garcia, witnessed episode of syncope earlier this morning. As he and the patient were exiting the home, he did not feel well and then collapsed.? He was unconscious for about 5-7 minutes.? He did immediately call 911 and fire/police arrived on scene immediately and started CPR. and were able to palpate a pulse after about 1 minute of compressions though the patient did remain in respiratory arrest requ iring supplemental O2 about valve mask..? On arrival, the patient was breathing spontaneously on room air with oximetry 95%.? Heart rate 102, respirations 16, blood pressure 95/43.? He was given 1 L IV fluids with improvement in blood pressure to 144/79.? His son reports glucose this morning was 107 and took his scheduled 24 units of Tresiba.? Glucose on arrival was 208.? There is no leukocytosis.? Normocytic anemia H/H 12.6/39.6 % (consistent with baseline), PLT 109 (last recorded 156).? Renal function baseline, electrolyte levels normal except for mildly deficient magnesium of 1.5.? Initial troponin 9.0, repeat 39.5.? EKG on arrival showing sinus rhythm with PACs, left anterior fascicular block, mildly prolonged QT (QTC 410, QTC 526).? Repeat EKG shows atrial sensed ventricular paced rhythm, rate 94, normal QT/QTC.? CXR showing poor inspiratory effort without evidence of congestive failure or consolidation. Patient is alert and oriented and able to provide detailed medical history. CT brain shows age related atrophy and white matter changes Review of Systems Review of Systems: General: No fevers, malaise, unintentional weight loss HEENT: No blurred vision, diplopia Cardiovascular: No chest pain, palpitations, or leg edema Respiratory: No shortness of breath, wheezing, cough GI: +diarrhea. No abdominal pain, nausea, vomiting, constipation : No dysuria, hematuria, increased urinary frequency, decreased urinary output Neuro: No headaches, weakness, paresthesias Skin: No rashes or lesions Yes all other systems are reviewed and are negative and Unobtainable due to mental status [facility] Past Medical History Medical History 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 BPH (benign prostatic hyperplasia) CAD (coronary artery disease) Chronic pain syndrome Chronic pain syndrome CKD stage 3 due to type 2 diabetes mellitus COVID-19 vaccine administered Diabetes type 2, uncontrolled Diabetic nephropathy associated with type 2 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 Dyslipidemia (high LDL; low HDL) Fluid collection at surgical site Hard of hearing History of anal fissures Hx of cardiomyopathy Hypertension Ischemic cardiomyopathy emt intermediate (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 antibiotics assisted (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 insulin Obesity Orthostatic hypotension Poorly controlled diabetes mellitus Pre-op evaluation Spinal stenosis, lumbar region without neurogenic claudication Spondylosis, unspecified TIA (transient ischemic attack) Type 2 diabetes mellitus with hyperlipidemia Vitamin D deficiency Family History Family History Father Colon cancer Lung cancer Mother Diabetes Family history: reviewed and not pertinent Surgical History Surgical History H/O colonoscopy History of bowel resection History of cardiac defibrillator placement History of surgery Hx of cataract surgery Hx of cholecystectomy Hx of coronary artery bypass graft Hx of hernia repair Social History Social History Household Members: Other Household Members Other:: grandsons but alone alot Housing: House Do you presently have visiting nurse or other home services: No Alcohol intake: current Alcohol intake frequency: does not drink Patient Tobacco Use Status: Never used Tobacco e-Cigarette/Vaping Use: Never Used Second Hand Smoke Exposure: No service: No Current occupational status: retired Cognitive needs: Yes Hearing needs: Yes Vision needs: Yes Meds Allergies Allergy/AdvReac Type Severity Reaction Status Date / Time No Known Allergies Allergy Verified 02/26/22 08:11 [No Known Allergies*] Active Medications: Current Medications Acetaminophen (Acetaminophen 325 Mg Tablet) 650 mg PO Q6H PRN PRN Reason: Pain, Mild (Pain Scale 1-3) Acetaminophen (Acetaminophen 325 Mg Tablet) 650 mg PO BID [facility] Last Admin: 03/17/22 10:07 Dose: 650 mg Ascorbic Acid (Ascorbic Acid 500 Mg Tablet) 500 mg PO DAILY [facility] Last Admin: 03/17/22 10:07 Dose: 500 mg Atorvastatin Calcium (Atorvastatin Calcium 10 Mg Tablet) 10 mg PO BEDTIME [facility] Last Admin: 03/16/22 20:31 Dose: 10 mg Cyanocobalamin (Cyanocobalamin (Vitamin B-12) 1,000 Mcg Tablet) 1,000 mcg PO DAILY [facility] Last Admin: 03/17/22 10:08 Dose: 1,000 mcg Dextrose (Dextrose 50 % 25 Gm/50 Ml Syringe) 25 gm IVPUSH Q15M PRN; Protocol PRN Reason: per Hypoglycemia Standing Ord. Gabapentin (Gabapentin 300 Mg Capsule) 600 mg PO BID [facility] Last Admin: 03/17/22 10:08 Dose: 600 mg Glucose (Glucose Gel 15 Gm Gel..Gram.) 15 gm PO Q15M PRN; Protocol PRN Reason: per Hypoglycemia Standing Ord. Sodium Chloride (Ns) 1,000 mls @ 100 mls/hr IVCONT .Q10H [facility] Last Admin: 03/17/22 14:28 Dose: 100 mls/hr Insulin Glargine (Insulin Glargine,Hum.Rec.Anlog 100 Unit/Ml 10 Ml Vial) 13 unit SUBCUT DAILY [facility] Last Admin: 03/17/22 10:08 Dose: 13 unit Insulin Human Lispro (Insulin Lispro 100 Unit/Ml 3 Ml Vial) 0 unit SUBCUT QIDACHS [facility]; Protocol Last Admin: 03/17/22 16:57 Dose: 4 unit Melatonin (Melatonin 3 Mg Tablet) 3 mg PO BEDTIME PRN PRN Reason: Insomnia Last Admin: 03/16/22 20:30 Dose: 3 mg Midodrine (Midodrine Hcl 10 Mg Tablet) 10 mg PO BID@0900,1700 [facility] Last Admin: 03/17/22 16:57 Dose: 10 mg Multivitamins/Vitamin C (Multivitamin Tablet) 1 tab PO DAILY [facility] Last Admin: 03/17/22 10:08 Dose: 1 tab Nitroglycerin (Nitroglycerin 0.4 Mg Tab.Subl) 0.4 mg SUBLINGUAL ONCE PRN PRN Reason: Chest Pain Pharmacy Consult (Consult Rx Perform Med Rec) 1 each MISCELLANE ONCE PRN PRN Reason: Consult order Pharmacy Consult (Consult Rx Vancomycin Dosing) 1 each MISCELLANE DAILY PRN PRN Reason: Consult order Sodium Chloride (0.9 % Sodium Chloride Flush 3 Ml Syringe) 3 ml IVFLUSH QSHIFT [facility] Last Admin: 03/17/22 15:37 Dose: 3 ml Tamsulosin HCl (Tamsulosin Hcl 0.4 Mg Capsule) 0.4 mg PO BEDTIME [facility] Last Admin: 03/16/22 20:30 Dose: 0.4 mg Tramadol HCl (Tramadol Hcl 50 Mg Tablet) 50 mg PO Q6H PRN PRN Reason: Pain, Moderate (Pain Scale 4-6 Last Admin: 03/16/22 20:31 Dose: 50 mg Vitamin D (Cholecalciferol (Vitamin D3) 25 Mcg Tablet) 50 mcg PO DAILY [facility] Last Admin: 03/17/22 10:07 Dose: 50 mcg Home Medications Medication Instructions Recorded Confirmed Last Taken Type tamsulosin 0.4 mg capsule 0.4 mg PO BEDTIME 01/30/20 03/16/22 03/15/22 History nitroglycerin 0.4 mg sublingual 0.4 mg sublingual ONCE PRN Chest 07/15/20 03/16/22 Unknown History tablet Pain midodrine 10 mg tablet 10 mg PO BID@0900,1700 11/04/21 03/16/22 03/15/22 History ascorbic acid (vitamin C) 500 mg 500 mg PO DAILY 11/15/21 03/16/22 03/15/22 History tablet cyanocobalamin (vitamin B-12) 1,000 mcg PO DAILY 11/15/21 03/16/22 03/15/22 History 1,000 mcg tablet insulin aspart 12 - 15 unit subcut TIDAC 11/15/21 03/16/22 03/15/22 History (niacinamide)(U-100) 100 unit/mL(3 mL) subcutaneous pen (Fiasp FlexTouch U-100 Insulin) insulin degludec 100 unit/mL (3 24 unit subcut DAILY 11/15/21 03/16/22 03/16/22 History mL) subcutaneous pen (Tresiba FlexTouch U-100 insulin) multivitamin 1 tab PO DAILY 11/15/21 03/16/22 03/15/22 History acetaminophen 325 mg tablet 650 mg PO BID 03/16/22 03/16/22 Unknown History atorvastatin 10 mg tablet 10 mg PO BEDTIME 03/16/22 03/16/22 03/15/22 History dulaglutide 3 mg/0.5 mL 3 mg subcut SA 03/16/22 03/16/22 03/14/22 History subcutaneous pen injector (Trulicity) melatonin 3 mg tablet 3 mg PO BEDTIME PRN Insomnia 03/16/22 03/16/22 Unknown History tramadol 50 mg tablet 50 mg PO Q6H PRN Pain 03/16/22 03/16/22 Unknown History Physical Exam Vital Signs: Vital Signs: Last Vital Signs Temp 97.2 F 03/17/22 15:12 Pulse 74 03/17/22 15:12 Resp 16 03/17/22 15:12 BP 124/62 03/17/22 15:12 Pulse Ox 99 03/17/22 15:12 O2 Del Method 03/17/22 15:12 BMI result Body Mass Index 27.3 Const: Other: frail elderly male in no acute distress General: cooperative Nutritional Appearance: average body habitus Orientation/consciousness: oriented to person Limitations: other limitations (poor historian, dementia) HEENT: Head: Yes normal to inspection Ears: external ears normal General nose exam: Normal external nose present Face and sinus: Yes normal facial exam Mouth: Normal oral and palatal mucosa present and oropharynx normal Teeth and gingiva: dentition normal Throat: Yes posterior oropharynx normal Eyes: General: appearance normal, both eyes and all related structures Pupils: Equal, round and reactive pupils present Neck: Other: supple Neck: Yes normal visual inspection Chest: Chest palpation & inspection: normal inspection of the chest Resp: Effort & Inspection: normal respiratory effort Auscultation: clear to auscultation bilaterally Cardio: Other: tachycardia Jugular venous distension: no JVD Rate: regular rate Rhythm: regular rhythm Heart sounds: S1 normal heart sound present and S2 normal heart sound present GI: Inspection: Yes normal to inspection Palpation (GI): Soft to palpation, nontender and No hepatosplenomegaly present Auscultation: normal bowel sounds : General: Yes no CVA tenderness Back/Spine/Pelvis: Other: stimulator felt as lump on lower spine there is clear fluid top of area drop,no purulence or cellulitis Back: no CVA tenderness Skin: General skin exam: no rashes or lesions noted Neuro: Other: He is alert, oriented x3 with normal cognitive functions. Speech is normal. C ranial nerves II through XII are normal. Muscle tone and strength are normal in all 4 extremities. Deep tendon reflexes hypoactive to absent in the lower extremities plantar response is flexor. Neck is supple General: oriented to person and moves all extremities Cranial nerves: Yes CN's II-XII intact bilaterally and Yes Equal, round and reactive pupils present Motor exam (neuro): 5/5 motor strength present throughout Extrem: General: Yes normal to inspection Psych: Appearance: grossly normal Results Labs CBC & Chem 7: 03/16/22 08:51 03/17/22 13:22 Labs: BMP 03/17/22 13:22 Creatinine 0.85 Urine 03/16/22 Range/Units 21:30 Urine Color Yellow Urine Appearance Clear Urine pH 5.0 (5.0-9.0) Ur Specific [place] >= 1.030 H (1.005-1.025) Urine Protein Trace (Neg-Trace) mg/dL Urine Glucose (UA) >=1000 H (Negative) mg/dL Microbiology Microbiology Results: Microbiology 03/16/22 Unknown Back Gram Stain - Final 03/16/22 Unknown Back Routine Culture - Preliminary Culture in progress. Assessment and Plan (1) Syncope and collapse: Status: Acute Syncopal episode rule out cardiac arrhythmia rule out hypoglycemia , R/O seizure although it appears unlikely. Recommendations: EEG. 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 Check for orthostatic hypotension.Endocrine evaluation for possible insulin pump or a continuous glucose monitoring device (2) Respiratory arrest: Status: Acute Plan ?81-year-old male with history insulin-dependent brittle type 2 diabetes with history hyperglycemia and hypoglycemia, chronic pain syndrome with spinal cord stimulator in place following with [facility], hypertension, orthost atic hypotension, diabetic neuropathy, diabetic nephropathy with CKD stage 3, dyslipidemia, history of cardiomyopathy on Entresto, and coronary artery disease s/p bypass x2 with ICD in place (Dr. Reinoso), history TIA who lives at home by himself with his 3 grandsons who rotate throughout the day assisting with his care admitted for further Evaluation of syncope and collapse with respiratory arrest and question of cardiac arrest. # syncope and collapse -no hypoglycemia reported prior to event or since arrival to the hospital. 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 -D-Dimer >1000. CTA chest negative for PE -Neurology consult placed to evaluate for possible seizure as cause for syncope and respiratory arrest #Respiratory arrest- resolved -Pt arrest witnessed by son requiring chest compressions and bag valve mask. Unclear if there was truly a cardiac arrest though compressions were administered intially by first responders. EMS felt a pulse after 1 minute compressions and further respiratory support provided with [id number] and supplemental O2.? Patient breathing spontaneously on arrival to ED with oximetry 95% on room air -ICD reviewed without evidence of cardiac arrest or unstable arrhythmia -patient hemodynamically stable #Tunneling wound overlying spinal cord stimulator -Follows closely with Dr. Verdin at [facility] with longstanding nonhealing surgical wound following SCS placement in Nov 2020 with history fluid collection with apiration of contents by IR with negative gram stain/cultures. -Gram stain with 1+ gram positive cocci, 4+ polys, 1+ epithelial cells. Culture pending -Ct lumbar spine w contrast ordered showing infiltration of the subcutaneous fat along course of the patient's spinal stimulator leading to the right paramidline soft tissues possibly representing soft tissue inflammation versus cellulitis or phlegmon versus scar tissue. No well-formed abscess or soft tissue gas -id consulted and given a single dose vancomycin. Case discussed with ID does not recommend continued antibiotics but does recommend removal of spinal cord stimulator -case discussed with Dr. Verdin at [facility] pain management who follows with the patient and had been managing non healing wound. Recommending removal of device (possibly outpt ) given pt does not get relief from this and infection risk. Patient is in agreement. Message sent to Dr. Verdin regarding patient decision. # brittle insulin-dependent type 2 diabetes with history hyperglycemia and hypoglycemia -Glucose levels have been relatively stable while in hospital without any hypoglycemia and only minimal hyperglycemia postpradnially. Patient is quite forgetful and manages his own insulin despite his grandsons' assisting with his care at various times of the time. Question of medication misuse secondary to memory impairment leading to hypoglycemic episodes that could lead to syncopal episdes. Pt/OT evals ordered recommending STR. Upon return home, another constitution party should be managing patient's medications- his grandsons who already assist him vs [facility] if possible. 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 Advised to bring in copy of healthcare proxy Dispo: STR pending neuro evaluation. Again recommend that patient's insulin/medications be managed by another constitution party given his memory impairment with concern for medication mismanagement and history of hypo/hyperglycemia and hypot ension. Patient requires ongoing inpatient stay following episode of respiratory arrest with syncope and collapse for further investigation into etiology of event which cannot be performed outpt as pt requires close monitoring for recurrence as well as expert consultation. Procedures Date of Service Date of Service: 03/17/22
[2022-03-17] MEDS: Atorvastatin Calcium 10 MG TABLET PO (20:15)
[2022-03-17] MEDS: Tamsulosin HCL 0.4 MG CAPSULE PO (20:16)
[2022-03-17 20:20] LABS: Glucose, Whole Blood 181 mg/dL (60-115)
--- NOTE | 2022-03-18 | EEG_ITS ---
The waking background activity consists of a moderate voltage posterior 8 hertz alpha frequency, intermixed anteriorly with low-voltage fast frequencies. Photic stimulation is without activation. Hyperventilation was omitted. No focal, lateralizing, or paroxysmal discharges seen. IMPRESSION: This waking EEG is within normal limits. MD KEIRY Karimi/FRAN / [phone]
[2022-03-18 04:00] VITALS: BP 130/70; PULSE 71; RESP 14; TEMP 36.3; O2SAT 95
[2022-03-18] MEDS: 0.9 % Sodium Chloride 1,000 ML 100 ML IVCONT (06:28)
[2022-03-18 07:25] LABS: Glucose, Whole Blood 176 mg/dL (60-115)
[2022-03-18] MEDS: Acetaminophen 325 MG TABLET 650 MG PO ×2 (07:53→21:26)
[2022-03-18] MEDS: Cyanocobalamin (Vitamin B-12) 1,000 MCG TABLET 1000 MCG PO (07:53)
[2022-03-18] MEDS: Multivitamin TABLET 1 TAB PO (07:53)
[2022-03-18] MEDS: Gabapentin 300 MG CAPSULE 600 MG PO ×2 (07:55→21:26)
[2022-03-18] MEDS: Midodrine HCl 10 MG TABLET PO ×2 (07:55→17:58)
[2022-03-18] MEDS: Insulin Glargine,Hum.rec.anlog 100 UNIT/ML 10 ML VIAL 13 UNIT SUBCUT (07:56)
[2022-03-18] MEDS: Ascorbic Acid 500 MG TABLET PO (07:56)
[2022-03-18] MEDS: Cholecalciferol (Vitamin D3) 25 MCG TABLET 50 MCG PO (07:59)
[2022-03-18] MEDS: Insulin Lispro 100 UNIT/ML 3 ML VIAL SUBCUT ×4 (07:59→21:27)
[2022-03-18 08:00] VITALS: BP 155/72; PULSE 80; RESP 20; TEMP 36.6; O2SAT 97
[2022-03-18] MEDS: 0.9 % Sodium Chloride Flush 3 ML SYRINGE IVFLUSH ×3 (08:00→21:28)
[2022-03-18 08:04] LABS: Creatinine Clr Calc Pharmacy 84.7; Estimated Glomerular Filt Rate > 60
[2022-03-18 09:16] VITALS: BP 155/72; PULSE 80; O2SAT 97
[2022-03-18 11:50] VITALS: BP 143/75; PULSE 75; RESP 20; TEMP 36.7; O2SAT 98
[2022-03-18 12:04] LABS: Glucose, Whole Blood 202 mg/dL (60-115)
--- NOTE | 2022-03-18 13:14 | MHC.CM.PN ---
Per ROUNDS discussion, Patient will be medically cleared for dc to SNF/STR today. Patient will dc to [facility] today at 4:30 [address]. Last IMM addressed yesterday. Patient is aware of and in agreement with the dc plan.
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
--- NOTE | 2022-03-18 14:13 | MHC.CM.PN ---
[facility] had indicated that they would have a bed today for Patient but are now indicating that they do not. Per SNF's request, has requested a new Covid swab and CM has changed the pick and shovel worker time to tomorrow at 11AM.
--- NOTE | 2022-03-18 15:18 | HO.PM.IMPN ---
Subjective Subjective Date of Service: 03/18/22 Interval History: Seen in follow up for syncope and respiratory arrest Interval history: Feeling well. no overnight events Review of Systems General: No fevers, malaise, unintentional weight loss HEENT: No blurred vision, diplopia Cardiovascular: No chest pain, palpitations, or leg edema Respiratory: No shortness of breath, wheezing, cough GI: +diarrhea. No abdominal pain, nausea, vomiting, constipation : No dysuria, hematuria, increased urinary frequency, decreased urinary output Neuro: No headaches, weakness, paresthesias Skin: No rashes or lesions Physical Exam Vital Signs: Vital Signs: Last Vital Signs Temp 98.0 F 03/18/22 11:50 Pulse 75 03/18/22 11:50 Resp 20 03/18/22 11:50 BP 143/75 H 03/18/22 11:50 Pulse Ox 98 03/18/22 11:50 O2 Del Method 03/18/22 11:50 BMI result Body Mass Index 27.3 Constitutional - Awake and Alert, No apparent distress Eyes - PERRLA, EOMI Cardiovascular - S1S2, RRR, No edema Respiratory - Normal lung expansion, Normal respiratory effort, No respiratory distress, CTA bilaterally Gastrointestinal - NT / ND; +BS; No rebound or guarding Extremities - no calf tenderness bilaterally, no swelling Musculoskeletal - Normal inspection, normal ROM Skin - Warm/Dry. Healing abrasions noted to patient's scalp Neurological - Alert & oriented x3, but repetitive at times Psychological - Appropriate affect Objective Data Active Medications Acetaminophen (Acetaminophen 325 Mg Tablet) 650 mg PO Q6H PRN PRN Reason: Pain, Mild (Pain Scale 1-3) Last Admin: 03/17/22 20:15 Dose: 650 mg Documented By: SG Acetaminophen (Acetaminophen 325 Mg Tablet) 650 mg PO BID ON LICENSE OF [facility] Last Admin: 03/18/22 07:53 Dose: 650 mg Documented By: INDIO Ascorbic Acid (Ascorbic Acid 500 Mg Tablet) 500 mg PO DAILY ON LICENSE OF [facility] Last Admin: 03/18/22 07:56 Dose: 500 mg Documented By: INDIO Atorvastatin Calcium (Atorvastatin Calcium 10 Mg Tablet) 10 mg PO BEDTIME ON LICENSE OF [facility] Last Admin: 03/17/22 20:15 Dose: 10 mg Documented By: SG Cyanocobalamin (Cyanocobalamin (Vitamin B-12) 1,000 Mcg Tablet) 1,000 mcg PO DAILY ON LICENSE OF [facility] Last Admin: 03/18/22 07:53 Dose: 1,000 mcg Documented By: INDIO Dextrose (Dextrose 50 % 25 Gm/50 Ml Syringe) 25 gm IVPUSH Q15M PRN; Protocol PRN Reason: per Hypoglycemia Standing Ord. Gabapentin (Gabapentin 300 Mg Capsule) 600 mg PO BID ON LICENSE OF [facility] Last Admin: 03/18/22 07:55 Dose: 600 mg Documented By: INDIO Glucose (Glucose Gel 15 Gm Gel..Gram.) 15 gm PO Q15M PRN; Protocol PRN Reason: per Hypoglycemia Standing Ord. Insulin Glargine (Insulin Glargine,Hum.Rec.Anlog 100 Unit/Ml 10 Ml Vial) 13 unit SUBCUT DAILY ON LICENSE OF [facility] Last Admin: 03/18/22 07:56 Dose: 13 unit Documented By: INDIO Insulin Human Lispro (Insulin Lispro 100 Unit/Ml 3 Ml Vial) 0 unit SUBCUT QIDACHS ON LICENSE OF [facility]; Protocol Last Admin: 03/18/22 12:05 Dose: 4 unit Documented By: INDIO Melatonin (Melatonin 3 Mg Tablet) 3 mg PO BEDTIME PRN PRN Reason: Insomnia Last Admin: 03/16/22 20:30 Dose: 3 mg Documented By: DAVID Midodrine (Midodrine Hcl 10 Mg Tablet) 10 mg PO BID@0900,1700 ON LICENSE OF [facility] Last Admin: 03/18/22 07:55 Dose: 10 mg Documented By: INDIO Multivitamins/Vitamin C (Multivitamin Tablet) 1 tab PO DAILY ON LICENSE OF [facility] Last Admin: 03/18/22 07:53 Dose: 1 tab Documented By: INDIO Nitroglycerin (Nitroglycerin 0.4 Mg Tab.Subl) 0.4 mg SUBLINGUAL ONCE PRN PRN Reason: Chest Pain Pharmacy Consult (Consult Rx Perform Med Rec) 1 each MISCELLANE ONCE PRN PRN Reason: Consult order Pharmacy Consult (Consult Rx Vancomycin Dosing) 1 each MISCELLANE DAILY PRN PRN Reason: Consult order Sodium Chloride (0.9 % Sodium Chloride Flush 3 Ml Syringe) 3 ml IVFLUSH QSHIFT ON LICENSE OF [facility] Last Admin: 03/18/22 08:00 Dose: 3 ml Documented By: INDIO Tamsulosin HCl (Tamsulosin Hcl 0.4 Mg Capsule) 0.4 mg PO BEDTIME ON LICENSE OF [facility] Last Admin: 03/17/22 20:16 Dose: 0.4 mg Documented By: SG Tramadol HCl (Tramadol Hcl 50 Mg Tablet) 50 mg PO Q6H PRN PRN Reason: Pain, Moderate (Pain Scale 4-6 Last Admin: 03/16/22 20:31 Dose: 50 mg Documented By: DAVID Vitamin D (Cholecalciferol (Vitamin D3) 25 Mcg Tablet) 50 mcg PO DAILY ON LICENSE OF [facility] Last Admin: 03/18/22 07:59 Dose: 50 mcg Documented By: INDIO Labs CBC & Chem 7: 03/16/22 08:51 03/18/22 05:52 Labs: Laboratory Results - last 24 hr 03/17/22 03/17/22 03/18/22 15:59 20:16 05:52 Estim Creat Clear Calc 84.7 Estimated GFR > 60 POC Glucose 206 H 181 H 03/18/22 03/18/22 07:20 11:57 Estim Creat Clear Calc Estimated GFR POC Glucose 176 H 202 H Microbiology Microbiology Results: Microbiology 03/17/22 08:18 Blood Culture - Preliminary Blood - Venous No growth after 24 hours. 03/17/22 08:18 Blood Culture - Preliminary Blood - Venous No growth after 24 hours. 03/16/22 Unknown Gram Stain - Final Back Routine Culture - Final Assessment and Plan (1) Syncope and collapse: Status: Acute (2) Respiratory arrest: Status: Acute Plan ?81-year-old male with history insulin-dependent brittle type 2 diabetes with history hyperglycemia and hypoglycemia, chronic pain syndrome with spinal cord stimulator in place following with [facility], hypertension, orthostatic hypotension, diabetic neuropathy, diabetic nephropathy with CKD stage 3, dyslipidemia, history of cardiomyopathy on Entresto, and coronary artery disease s/p bypass x2 with ICD in place (Dr. Reinoso), history TIA who lives at home by himself with his 3 grandsons who rotate throughout the day assisting with his care admitted for further Evaluation of syncope and collapse with respiratory arrest and question of cardiac arrest. # syncope and collapse -no hypoglycemia documented prior to event or since arrival to the hospital. 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 -D-Dimer >1000. CTA chest negative for PE -Evaluated by neuro, seizure unlikely. However EEG pending -Etiology likely secondary to hypoglycemic episode. Fasting glucose at home prior to episode 107, took 24 units tresiba, no prandial insulin, did not eat. Glucose elevated at 208 on arrival likely due to stress reaction from arrest #Respiratory arrest- resolved -Pt arrest witnessed by son requiring chest compressions and bag valve mask. Unclear if there was truly a cardiac arrest though compressions were administered intially by first responders. EMS felt a pulse after 1 minute compressions and further respiratory support provided with [id number] and supplemental O2.? Patient breathing spontaneously on arrival to ED with oximetry 95% on room air -ICD reviewed without evidence of cardiac arrest or unstable arrhythmia -patient hemodynamically stable #Tunneling wound overlying spinal cord stimulator -Follows closely with Dr. Verdin at [facility] with longstanding nonhealing surgical wound following SCS placement in Nov 2020 with history fluid collection with apiration of contents by IR with negative gram stain/cultures. -Gram stain with 1+ gram positive cocci, 4+ polys, 1+ epithelial cells. Culture pending -Ct lumbar spine w contrast ordered showing infiltration of the subcutaneous fat along course of the patient's spinal stimulator leading to the right paramidline soft tissues possibly representing soft tissue inflammation versus cellulitis or phlegmon versus scar tissue. No well-formed abscess or soft tissue gas -id consulted and given a single dose vancomycin. Case discussed with ID does not recommend continued antibiotics but does recommend removal of spinal cord stimulator -case discussed with Dr. Verdin at [facility] pain management who follows with the patient and had been managing non healing wound. Recommending removal of device (possibly outpt ) given pt does not get relief from this and infection risk. Patient is in agreement. Message sent to Dr. Verdin regarding patient decision. # brittle insulin-dependent type 2 diabetes with history hyperglycemia and hypoglycemia -Glucose levels have been relatively stable while in hospital without any hypoglycemia and only minimal hyperglycemia postpradnially. Patient is quite forgetful and manages his own insulin despite his grandsons' assisting with his care at various times of the time. Question of medication misuse secondary to memory impairment leading to hypoglycemic episodes that could lead to syncopal episdes. Pt/OT evals ordered recommending STR. Upon return home, another constitution party should be managing patient's medications- his grandsons who already assist him vs [facility] if possible. 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 Advised to bring in copy of healthcare proxy Patient requires ongoing inpatient stay following episode of respiratory arrest, awaiting placement, likely discharge tomorrow. Quality Stroke Does the patient have a stroke diagnosis?: No VTE Prior VTE?: No VTE Risk Level:: Medical - moderate - high VTE Device Contraindication: Treatment Not Indicated VTE Drug Contraindication: N/A - Med Ordered
[2022-03-18 15:35] VITALS: BP 136/83; PULSE 90; RESP 17; TEMP 36.5; O2SAT 95
[2022-03-18 16:32] LABS: Glucose, Whole Blood 157 mg/dL (60-115)
[2022-03-18 20:00] VITALS: BP 165/83; PULSE 83; RESP 20; TEMP 37.1; O2SAT 97
[2022-03-18 21:13] LABS: Glucose, Whole Blood 192 mg/dL (60-115)
[2022-03-18] MEDS: traMADoL HCL 50 MG TABLET PO (21:27)
[2022-03-18] MEDS: Melatonin 3 MG TABLET PO (21:27)
[2022-03-18] MEDS: Atorvastatin Calcium 10 MG TABLET PO (21:27)
[2022-03-18] MEDS: Tamsulosin HCL 0.4 MG CAPSULE PO (21:27)
[2022-03-19 04:00] VITALS: PULSE 77; RESP 20
--- NOTE | 2022-03-19 04:12 | PC.NURSE ---
Pt made it know at the beginning of the shift that he did not want to be disturbed/woken up during the night. Held midnight vital signs per pt request. Will continue to monitor.
[2022-03-19 07:21] VITALS: BP 138/72; PULSE 84; RESP 14; TEMP 36.3; O2SAT 95
[2022-03-19 07:26] LABS: Glucose, Whole Blood 213 mg/dL (60-115)
[2022-03-19 07:44] LABS: Creatinine Clr Calc Pharmacy 76.6; Estimated Glomerular Filt Rate > 60
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
[2022-03-19] MEDS: Insulin Glargine,Hum.rec.anlog 100 UNIT/ML 10 ML VIAL 13 UNIT SUBCUT (08:53)
[2022-03-19] MEDS: Insulin Lispro 100 UNIT/ML 3 ML VIAL SUBCUT (08:53)
[2022-03-19] MEDS: Acetaminophen 325 MG TABLET 650 MG PO (08:54)
[2022-03-19] MEDS: Multivitamin TABLET 1 TAB PO (08:54)
[2022-03-19] MEDS: Midodrine HCl 10 MG TABLET PO (08:54)
[2022-03-19] MEDS: Gabapentin 300 MG CAPSULE 600 MG PO (08:54)
[2022-03-19] MEDS: Cholecalciferol (Vitamin D3) 25 MCG TABLET 50 MCG PO (08:54)
[2022-03-19] MEDS: Cyanocobalamin (Vitamin B-12) 1,000 MCG TABLET 1000 MCG PO (08:54)
[2022-03-19 09:18] LABS: COVID-19 Test Negative (Negative); IDNOW Serial# BCCEAD1C
[2022-03-19 10:56] VITALS: BP 152/77; PULSE 81; RESP 14; O2SAT 98
[2022-03-19 11:07] LABS: Glucose, Whole Blood 209 mg/dL (60-115)
== END 2022-03-19 11:31 | disposition skilled nursing facility (03) | DRG 639 ==
LOC: HO.ED 10:47 → HO.EDOVER 12:20 → HO.IMC 16:39
PROVIDERS: Admitting Provider Physician Assistant; Emergency Provider Emergency Medicine; PCP Internal Medicine; Visit Provider Hospitalist
DX: E11.649 Type 2 diabetes mellitus with hypoglycemia without coma (principal); I95.1 Orthostatic hypotension; E11.40 Type 2 diabetes mellitus with diabetic neuropathy, unspecified; N40.0 Benign prostatic hyperplasia without lower urinary tract symptoms; E78.5 Hyperlipidemia, unspecified; G89.4 Chronic pain syndrome; I25.10 Atherosclerotic heart disease of native coronary artery without angina pectoris; Z20.822 Contact with and (suspected) exposure to COVID-19; I25.5 Ischemic cardiomyopathy; Z23 Encounter for immunization; Z96.82 Presence of neurostimulator; Z95.810 Presence of automatic (implantable) cardiac defibrillator; Z95.1 Presence of aortocoronary bypass graft; Z79.4 Long term (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 insulin; Z79.899 Other long term (current) drug therapy
CPT/HCPCS: 36415; 70450; 71045; 71275; 72132; 80048; 81001; 82565; 82947; 83735; 84484; 85025; 85379; 87040; 87070; 87205; 87635; 90686; 93005; 95816; 96360; 96361; 97116; 97162; 97166; 97530; 97535; 99285; J3370; J3475; Q9967

== ENCOUNTER → 2022-04-16 09:06 | Outpatient (BNVA) | payer MEDICARE, SELFPAY | PROVIDERS: PCP Internal Medicine; Visit Provider Internal Medicine Endocrinology, Diabetes & Metabolism | DX: E11.69 Type 2 diabetes mellitus with other specified complication (principal); E78.5 Hyperlipidemia, unspecified; Z79.4 Long term (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 insulin | CPT/HCPCS: 82947; 83036; 99211; 99212 ==

== ENCOUNTER 2022-04-17 06:58 | Day surgery (SDC) | payer MEDICARE, SELFPAY ==
[2022-03-31 08:52] VITALS: BMI 27.6
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
[2022-04-17] VITALS (10 sets, daily range): BP systolic 120–140; BP diastolic 65–90; PULSE 86–98; RESP 16; TEMP 36.1–36.8; O2SAT 96–100
--- NOTE | ~2022-04-17 | FL_ITS ---
EXAMINATION: XR FLUOROSCOPY WITH IMAGES CLINICAL INFORMATION: Removal of lumbar spinal stimulator. COMPARISON: CT lumbar spine 03/08/2022 TECHNIQUE: Fluoroscopy Supervised By: Dr. Maksim Verdin. Fluoroscopy Time: 0 minutes. Cumulative Dose: 0.489 mGy. DAP: 0.133 Gycm2. Images: 5. FINDINGS: Previously noted lumbar spine was made to has been removed. There are surgical ashly along the left iliac bone. Mild degenerative changes of lumbar spine are noted. FL/FL guidance in OR IMPRESSION: Fluoroscopy guidance was provided to referring physician for removal of lumbar spine stimulator.
[2022-04-17 07:15] LABS: Glucose, Whole Blood 180 mg/dL (60-115)
[2022-04-17] MEDS: Lactated Ringers 1,000 ML 50 ML IVCONT (07:41)
--- NOTE | 2022-04-17 09:36 | PC.NURSE ---
repositioned one assist.
--- NOTE | 2022-04-17 09:54 | MHC.SHP ---
Pre-Procedural Eval Section A Date of Service: 04/17/22 The History & Physical has been completed within 30 days and I have reviewed it.: No Section B Chief Complaint: Presence of neurostimulator Details of Present Illness: as abobe Relevant Family History (Specify if Yes): No Relevant Social History: None Medical History: No relevant PMH History of Previous Operations: No relevant previous surgery Allergies: Allergies Allergy/AdvReac Type Severity Reaction Status Date / Time No Known Allergies Allergy Verified 04/16/22 09:22 [No Known Allergies*] Review of Systems Sugical H&P ROS: Negative: Constitution, Cardiovascular, Respiratory, Neurological, Psychiatric, Hem-Onc, Allergic/Immunologic, Gastrointestinal, Genitourinary, Musculoskeletal, Integumentary, Endocrine and Eyes/Ears/Nose/Throat Exam Surgical H&P Exam: Normal: HEENT, Normal: Heart, Normal: Lungs, Normal: Extremities, Normal: Abdomen, Normal: Skin and Normal: Neurological Plan Diagnosis/Plan: Unchanged I have reviewed the history and physical and performed a pertinent physical examination on my patient. No changes have occurred unless specified. Time Spent With Patient Time: Total time managing care of this patient today __10__ minutes.
--- NOTE | 2022-04-17 12:07 | PM.OP ---
Brief Operative Note Date of Service: 04/17/22 Pre-op diagnosis: presence of of non- functioning SCS Post-op diagnosis: same Procedure: removal of the SCS and epidural leads Implants: none Surgeon: Maksim Verdin MD Anesthesia: MAC Was an Veterinary Laboratory Diagnostician used for this Procedure?: No Estimated blood loss (mL): 10 Pathology: other (cultures of the both wounds were send for culture and sencitivity) Condition: stable Disposition: PACU
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
[2022-04-17] MEDS: fentaNYL citrate/PF 100 MCG/2 ML VIAL 25 MCG IVPUSH ×2 (12:13→12:31)
[2022-04-17] MEDS: oxyCODONE HCl Immed Release 5 MG TABLET PO (12:40)
[2022-04-17] MEDS: Acetaminophen 1,000 MG/100 ML PIGGYBACK 400 MG IV (13:20)
--- NOTE | 2022-04-17 14:20 | PC.NURSE ---
Garcia Garcia, present during discharge instructions. IV removal site assessed, hematoma resolved from pacu, bruise approx. size half dollar. Erika states this is his normal. Erika aware of antibiotic sent to pharmacy by surgeon and need to begin probiotic as stated. Also aware of times pain meds x2 given in PACU and this also written on discharge instructions for home reference. Erika given paper copy of oxycodone prescription to bring to pharmacy. Erika states [facility] services are to go to home tomorrow and he will share dressing instructions. Erika states that he will be with grandfather this weekend at home. Erika states he will call office regarding follow up appointments if he already doesn't have it written at home. Erika has copy of incision drawing that Dr. Velvet becerril for proper VNA dressing change as specified on discharge paperwork.
== END 2022-04-17 14:25 | disposition home or self-care (01) ==
PROVIDERS: PCP Internal Medicine; Visit Provider Anesthesiology
PROC: (CPT 63661; principal; 2022-04-17 08:40)
DX: Z46.2 Encounter for fitting and adjustment of other devices related to nervous system and special senses (principal); Z96.82 Presence of neurostimulator; M40.299 Other kyphosis, site unspecified; E11.40 Type 2 diabetes mellitus with diabetic neuropathy, unspecified; E11.22 Type 2 diabetes mellitus with diabetic chronic kidney disease; I12.9 Hypertensive chronic kidney disease with stage 1 through stage 4 chronic kidney disease, or unspecified chronic kidney disease; N18.30 Chronic kidney disease, stage 3 unspecified; Z79.4 Long term (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 insulin; Z79.899 Other long term (current) drug therapy
CPT/HCPCS: 63661; 63688; 82947; 87070; 87205; J0131; J2250; J2795; J3010; J3370

== ENCOUNTER → 2022-04-24 10:44 | Outpatient (BNVA) | payer MEDICARE, SELFPAY | PROVIDERS: PCP Internal Medicine; Visit Provider Anesthesiology | DX: Z01.818 Encounter for other preprocedural examination (principal); G89.4 Chronic pain syndrome; M47.9 Spondylosis, unspecified; M48.061 Spinal stenosis, lumbar region without neurogenic claudication; Z79.2 Long term (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 antibiotics | CPT/HCPCS: 99212 ==

== ENCOUNTER → 2022-04-30 08:54 | Outpatient (BNVA) | payer MEDICARE, SELFPAY | PROVIDERS: PCP Internal Medicine; Visit Provider Anesthesiology | DX: Z01.818 Encounter for other preprocedural examination (principal); M48.061 Spinal stenosis, lumbar region without neurogenic claudication; M47.9 Spondylosis, unspecified; G89.4 Chronic pain syndrome; Z79.2 Long term (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 antibiotics | CPT/HCPCS: 99212 ==

== ENCOUNTER 2022-05-13 20:42 | Inpatient (IN) | payer MEDICARE, SELFPAY ==
--- NOTE | 2022-05-13 | ECG_ITS ---
Test Reason : NAUSEA Blood Pressure : / mmHG Vent. Rate : 143 BPM Atrial Rate : 143 BPM P-R Int : 120 ms QRS Dur : 126 ms QT Int : 300 ms P-R-T Axes : -12 -53 123 degrees QTc Int : 463 ms Sinus tachycardia with occasional Premature ventricular complexes and Fusion complexes Left axis deviation Non-specific intra-ventricular conduction block T wave abnormality, consider lateral ischemia Abnormal ECG When compared with ECG of 16-MAR-2022 11:54, Vent. rate has increased BY 49 BPM Referred By: Generic ED Physician Electronically Signed By:RAGHAV UNGER
--- NOTE | ~2022-05-13 | CT_ITS ---
EXAMINATION: CT ABDOMEN AND PELVIS WITH CONTRAST CLINICAL INFORMATION: Abdominal pain COMPARISON: None TECHNIQUE: Multidetector volumetric images were obtained from the superior aspect of the liver through the pubic symphysis following administration 85 mL of Omnipaque 350 intravenous contrast. Sagittal and coronal reformatted images were obtained on the technologist's workstation. Oral contrast: No This CT examination was performed using dose optimization techniques as appropriate, variously including the following: *Automated exposure control *Adjustment of mA and/or kV according to patient size (this includes techniques or standardized protocols for targeted exams where dose is matched to indication/reason for exam; i.e. extremities or head) *Use of iterative reconstruction technique DLP: 1177 mGy-cm FINDINGS: LUNG BASES: Patchy regions of opacity are present in the left lower lobe. Underlying chronic interstitial lung changes are also suspected at the lung bases. LIVER, GALLBLADDER, AND BILIARY TREE: The liver is normal in size, shape, and attenuation. No focal hepatic lesion or biliary ductal dilatation is present. Patient appears to be status post cholecystectomy. PANCREAS: Partially atrophic. SPLEEN: Unremarkable. ADRENAL GLANDS: Unremarkable. KIDNEYS AND URETERS: Small hypodensity in the mid left kidney favors a cyst; no follow-up recommended. BLADDER: Unremarkable. GASTROINTESTINAL TRACT: No evidence of bowel obstruction or significant wall thickening. Appendix appears nondilated. No free fluid or free air is seen. ABDOMINAL WALL: Fat-containing right inguinal hernia. LYMPH NODES: Normal. VASCULAR: Moderate atherosclerotic calcifications. 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 PELVIC VISCERA: Unremarkable. OSSEOUS STRUCTURES: Degenerative changes are noted in the spine. CT/CT abdomen pelvis w IV con IMPRESSION: 1. No acute findings identified in the abdomen/pelvis. 2. Patchy regions of pulmonary opacity in the left lower lobe, suspicious for pneumonia or sequelae of aspiration.
--- NOTE | ~2022-05-13 | XR_ITS ---
EXAMINATION: XR CHEST CLINICAL INFORMATION: Cough, hypoxia COMPARISON: 03/16/2022 TECHNIQUE: Frontal view of the chest was obtained. FINDINGS: Redemonstrated left-sided pacemaker/AICD. Sternal wires and left atrial appendage clip again noted. The lungs are hypoinflated. There is mild streaky opacity at the left lung base. No evidence of pneumothorax or significant pleural effusion. The cardiomediastinal silhouette is stable. No acute osseous findings are seen. XR/XR chest 1V IMPRESSION: Low lung volumes with mild streaky left basilar opacity suggesting atelectasis.
[2022-05-13 20:50] VITALS: BP 100/55; BP 124/69; PULSE 124; PULSE 128; RESP 24; TEMP 36.4; O2SAT 94; O2SAT 98; BMI 25.2
[2022-05-13 20:53] LABS: Glucose, Whole Blood 367 mg/dL (60-115)
--- NOTE | 2022-05-13 21:22 | PC.NURSE ---
Addendum entered by Pamela Crump RN 05/13/22 22:25: Dr. Day made aware that pt BP is 81/51. pt currently running IV bolus NS will re-assess BP once first liter is finished Original Note: pt arrived alert and oriented per ems pt had sudden weakness, nausea and vomiting and elevated BS at 430. pt was found to be 83 RA per ems and started on 4L of NC pt sating at 98. when pt arrived pt covered in brownish emesis. pt denies any chest pain/sob or abd pain. pt c/o back pain. pt started on continuos cardiac monitoring. IV inserted, lab obtained BS during triage 367, pt currently sating 94 on RA
[2022-05-13 21:23] LABS: MANUAL DIFF FLAG NO
[2022-05-13 21:25] LABS: Basophils Absolute Auto 0.1 X10*3/uL (0.0-0.2); Basophils Percent Auto 0.4 % (0-2); Eosinophils Percent Auto 0.1 % (0-4); Hematocrit 42.3 % (42.0-52.0); Hemoglobin 13.9 g/dl (14.0-18.0); Imm Gran Abs Auto 0.05 X10*3/uL (0.00-0.03); Imm Gran Pct Auto 0.4 % (0.0-0.4); Lymphocytes Absolute Auto 1.3 X10*3/uL (1.2-4.9); Lymphocytes Percent Auto 9.8 % (20-40); Mean Corpuscular HGB Conc 32.9 g/dl (31.0-36.0); Mean Corpuscular Volume 91.2 fL (80.0-98.0); Mean Platelet Volume 9.9 fL (9.4-12.4); Monocytes Absolute Auto 0.5 X10*3/uL (0.1-1.2); Monocytes Percent Auto 4.1 % (2-11); Neutrophils Absolute Auto 10.8 x10*3/uL (2.0-8.3); Neutrophils Percent Auto 85.2 % (45-73); Platelet Count 115 X10*3/uL (160-400); Red Blood Count 4.64 X10*6/uL (4.60-5.80); Red Cell Distribution Width 13.6 % (11.0-16.0); White Blood Count 12.7 X10*3/uL (4.8-10.8)
[2022-05-13 21:44] LABS: Anion Gap 17 (12-20); Blood Urea Nitrogen 22 mg/dL (9-16); Calcium 9.6 mg/dL (8.4-10.2); Carbon Dioxide 28 mmol/L (22-29); Chloride 97 mmol/L (96-108); Creatinine Clr Calc Pharmacy 53.6; Estimated Glomerular Filt Rate > 60; Glucose Random 353 mg/dL (60-115); Potassium 3.6 mmol/L (3.3-5.1); Sodium 138 mmol/L (135-145)
[2022-05-13 21:45] LABS: Lactic Acid 4.7 mmol/L (0.5-2.0)
[2022-05-13 21:47] LABS: Troponin-I High Sensitivity 5.6 ng/L (<3.5-35.0)
--- NOTE | 2022-05-13 21:52 | ED.GENADULT ---
HPI - General Adult General Chief complaint: General Medical <Marcelino Day MD - Last Filed: 05/13/22 22:08> Stated complaint: N/V/High Blood Sugar,Low O2 <Marcelino Day MD - Last Filed: 05/13/22 22:08> Time Seen by Provider: 05/13/22 21:27 <Marcelino Day MD - Last Filed: 05/13/22 22:08> Source: patient and old records reviewed <Marcelino Day MD - Last Filed: 05/13/22 22:08> History of Present Illness HPI narrative: Patient states he has been vomiting today. No diarrhea. Some epigastric pain. He states his blood sugars been high. No cough. No blood in his emesis. He states he has been in the hospital multiple times recently. No recent visit here for this complaint however. No causative factors that he is aware of <Marcelino Day MD - Last Filed: 05/13/22 22:08> Related Data Home medications: Home Medications Medication Instructions Recorded Confirmed tamsulosin 0.4 mg capsule 0.4 mg PO BEDTIME 01/30/20 04/16/22 nitroglycerin 0.4 mg sublingual 0.4 mg sublingual ONCE PRN Chest 07/15/20 05/14/22 tablet Pain midodrine 10 mg tablet 10 mg PO BID@0900,1700 11/04/21 05/14/22 ascorbic acid (vitamin C) 500 mg 500 mg PO DAILY 11/15/21 05/14/22 tablet cyanocobalamin (vitamin B-12) 1,000 mcg PO DAILY 11/15/21 05/14/22 1,000 mcg tablet multivitamin 1 tab PO DAILY 11/15/21 05/14/22 acetaminophen 325 mg tablet 650 mg PO BID 03/16/22 05/14/22 dulaglutide 3 mg/0.5 mL 3 mg subcut SA 03/16/22 05/14/22 subcutaneous pen injector (Trulicity) melatonin 3 mg tablet 3 mg PO BEDTIME PRN Insomnia 03/16/22 05/14/22 tramadol 50 mg tablet 50 mg PO Q6H PRN Pain 03/16/22 05/14/22 blood sugar diagnostic (Louise #10 ea 04/16/22 04/16/22 Lite Strips) dulaglutide 1.5 mg/0.5 mL 1.5 mg subcut QWEEK 04/16/22 05/14/22 subcutaneous pen injector (Trulicity) insulin lispro 100 unit/mL See Rx Instructions subcut .COMPLEX 04/16/22 05/14/22 subcutaneous pen (Humalog KwikPen (U-100) Insulin) Previous Rx's Medication Instructions Recorded cholecalciferol (vitamin D3) 50 50 mcg PO DAILY 90 days #90 caps 07/17/20 mcg (2,000 unit) capsule insulin lispro 100 unit/mL See Protocol subcut USEASDIRECTD 03/18/22 subcutaneous solution (Humalog #10 mL U-100 Insulin) insulin degludec 100 unit/mL (3 24 unit (0.24 mL) subcut DAILY #15 04/16/22 mL) subcutaneous pen (Tresiba mL FlexTouch U-100 insulin) gabapentin 300 mg capsule 600 mg PO BID #180 caps 05/05/22 atorvastatin 10 mg tablet 10 mg PO DAILY #90 tabs 05/12/22 <Marcelino Day MD - Last Filed: 05/13/22 22:08> Allergies/adverse reactions: Allergies Allergy/AdvReac Type Severity Reaction Status Date / Time No Known Allergies Allergy Verified 04/30/22 09:30 [No Known Allergies*] <Marcelino Day MD - Last Filed: 05/13/22 22:08> Review of Systems Constitutional: Comments: General malaise. No fevers or chills <Marcelino Day MD - Last Filed: 05/13/22 22:08> Cardiovascular: Comments: No chest pain <Marcelino Day MD - Last Filed: 05/13/22 22:08> Respiratory: Comments: No current shortness of breath <Marcelino Day MD - Last Filed: 05/13/22 22:08> Gastrointestinal: Comments: Nausea vomiting as described <Marcelino Day MD - Last Filed: 05/13/22 22:08> Integumentary/Breasts: Comments: No rash <Marcelino Day MD - Last Filed: 05/13/22 22:08> Neurologic: Comments: No focal weakness <Marcelino Day MD - Last Filed: 05/13/22 22:08> [facility] Past Medical History Medical History: Medical History 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 BPH (benign prostatic hyperplasia) CAD (coronary artery disease) Chronic pain syndrome CKD stage 3 due to type 2 diabetes mellitus COVID-19 vaccine administered Diabetes type 2, uncontrolled Diabetic nephropathy associated with type 2 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 Dyslipidemia (high LDL; low HDL) Fluid collection at surgical site Hard of hearing History of anal fissures Hx of cardiomyopathy Hypertension 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 Obesity Orthostatic hypotension Poorly controlled diabetes mellitus Pre-op evaluation Spinal stenosis, lumbar region without neurogenic claudication Spondylosis, unspecified TIA (transient ischemic attack) Type 2 diabetes mellitus with hyperlipidemia Vitamin D deficiency <Marcelino Day MD - Last Filed: 05/13/22 22:08> Surgical History: Surgical History H/O colonoscopy History of bowel resection History of cardiac defibrillator placement History of surgery Hx of cataract surgery Hx of cholecystectomy Hx of coronary artery bypass graft Hx of hernia repair <Marcelino Day MD - Last Filed: 05/13/22 22:08> Family History Family History: Family History Father Colon cancer Lung cancer Mother Diabetes <Marcelino Day MD - Last Filed: 05/13/22 22:08> Social History Social History: Social History Household Members: Children Household Members Other:: 3 Housing: House Are you a primary child care attendant to a significant other at home: No Do you presently have visiting nurse or other home services: No Alcohol intake: never Patient Tobacco Use Status: Never used Tobacco Smoked in Last 30 Days: No e-Cigarette/Vaping Use: Never Used Patient Interested in Nicotine Replacement: No Patient Given Instructions on How to Stop Smoking: No Second Hand Smoke Exposure: No Use of substances other than those prescribed or required for medical reasons: No Currently Displaying Signs/Symptoms of Drug Intoxication Withdrawal: No Any prior treatment program specific to substance use: No Have you been hit, kicked, punched, or otherwise hurt by someone within the past year? If so, by whom?: No Do you feel safe in your current relationship?: No Current Relationship Is there a partner from a previous relationship who is making you feel unsafe now?: No Are you made to feel afraid or neglected: No Advance Directives: No Do you have thoughts of harming others: None Do you have a plan to hurt others: No Plan Recently lost weight without trying: Yes How much weight loss: 14-23 pounds Eating poorly because of decreased appetite: Yes Nutrition screen score: 5 Nutrition Risks: On aspiration precautions Poor oral hygiene: No service: No Current occupational status: retired Cognitive needs: Yes Hearing needs: Yes Vision needs: Yes <Marcelino Day MD - Last Filed: 05/13/22 22:08> Physical Exam ED Vital Signs: Vital Signs - 24 hr 05/13/22 20:50 05/13/22 22:19 05/13/22 22:54 Temperature 97.5 F Pulse Rate 124 H 114 H 107 H Respiratory Rate 24 H 29 H 17 Blood Pressure 100/55 L 81/51 L 106/63 Pulse Oximetry 94 95 Oxygen Delivery Method Room Air Room Air 05/14/22 00:15 Temperature Pulse Rate 97 Respiratory Rate 12 Blood Pressure 117/65 Pulse Oximetry 97 Oxygen Delivery Method Room Air BMI result Body Mass Index 25.2 <Marcelino Day MD - Last Filed: 05/13/22 22:08> Vital Signs - 24 hr 05/13/22 20:50 05/13/22 22:19 05/13/22 22:54 Temperature 97.5 F Pulse Rate 124 H 114 H 107 H Respiratory Rate 24 H 29 H 17 Blood Pressure 100/55 L 81/51 L 106/63 Pulse Oximetry 94 95 Oxygen Delivery Method Room Air Room Air 05/14/22 00:15 Temperature Pulse Rate 97 Respiratory Rate 12 Blood Pressure 117/65 Pulse Oximetry 97 Oxygen Delivery Method Room Air BMI result Body Mass Index 25.2 <Rohit Engel MD - Last Filed: 05/14/22 07:16> Const Other: Awake and alert. Ill-appearing <Marcelino Day MD - Last Filed: 05/13/22 22:08> Resp Other: Clear and equal bilaterally <Marcelino Day MD - Last Filed: 05/13/22 22:08> GI Other: Soft. Mild epigastric tenderness without guarding rebound. Normal bowel sounds. Nondistended <Marcelino Day MD - Last Filed: 05/13/22 22:08> Skin Other: Warm pale and dry <Marcelino Day MD - Last Filed: 05/13/22 22:08> Neuro Other: Nonfocal neuro exam <Marcelino Day MD - Last Filed: 05/13/22 22:08> Medications Administered Generic Name Dose Route Start Last Admin Trade Name Freq PRN Reason Stop Dose Admin Heparin Sodium (Porcine) 5,000 unit 05/14/22 03:30 05/14/22 03:59 Heparin Sodium,Porcine 5,000 Unit/Ml Vial SUBCUT 5,000 unit Q12H MARIYA Administration Lactated Ringer's 1,000 mls @ 100 mls/hr 05/14/22 03:30 05/14/22 03:52 Lr IVCONT 100 mls/hr .Q10H MARIYA Administration Piperacillin Sod/Tazobactam 50 mls @ 100 mls/hr 05/14/22 06:00 05/14/22 06:50 Sod 3.375 gm/ Sodium Chloride IV Infused Q6H MARIYA Infusion Discontinued Medications Generic Name Dose Route Start Last Admin Trade Name Freq PRN Reason Stop Dose Admin Dextrose 25 gm 05/14/22 03:23 05/14/22 03:52 Dextrose 50 % 25 Gm/50 Ml Syringe IVPUSH 05/14/22 03:24 25 gm ONCE ONE Administration Sodium Chloride 2,463 mls @ 2,463 mls/hr 05/13/22 21:47 05/14/22 01:26 Ns 30 ml/kg infuse over 1 hr (2463 ml) 05/13/22 22:46 Infused IV Infusion .Q1H STA Piperacillin Sod/Tazobactam 50 mls @ 100 mls/hr 05/13/22 21:47 05/13/22 23:40 Sod 3.375 gm/ Sodium Chloride IV 05/13/22 22:16 Infused ONCE ONE Infusion Vancomycin HCl 1,500 mg/ 500 mls @ 333.333 mls/hr 05/13/22 21:47 05/14/22 01:26 Sodium Chloride IV 05/13/22 23:16 Infused ONCE ONE Infusion Magnesium Sulfate 2 gm in 50 mls @ 25 mls/hr 05/13/22 22:26 05/14/22 01:26 Magnesium Sulfate/H2o IV 05/14/22 00:25 Infused ONCE ONE Infusion Magnesium Sulfate 2 gm in 50 mls @ 25 mls/hr 05/14/22 03:25 05/14/22 05:49 Magnesium Sulfate/H2o IV 05/14/22 05:24 Infused ONCE ONE Infusion Iohexol 85 ml 05/14/22 02:13 05/14/22 02:13 Iohexol 350 Mg/Ml 100 Ml Infus..Btl IV 05/14/22 02:14 85 ml ONCE ONE Administration Ondansetron HCl 4 mg 05/13/22 21:33 05/13/22 22:12 Ondansetron Hcl 4 Mg/2 Ml Vial IVPUSH 05/13/22 21:34 4 mg ONCE ONE Administration <Marcelino Day MD - Last Filed: 05/13/22 22:08> Medications Administered Generic Name Dose Route Start Last Admin Trade Name Freq PRN Reason Stop Dose Admin Heparin Sodium (Porcine) 5,000 unit 05/14/22 03:30 05/14/22 03:59 Heparin Sodium,Porcine 5,000 Unit/Ml Vial SUBCUT 5,000 unit Q12H MARIYA Administration Lactated Ringer's 1,000 mls @ 100 mls/hr 05/14/22 03:30 05/14/22 03:52 Lr IVCONT 100 mls/hr .Q10H MARIYA Administration Piperacillin Sod/Tazobactam 50 mls @ 100 mls/hr 05/14/22 06:00 05/14/22 06:50 Sod 3.375 gm/ Sodium Chloride IV Infused Q6H MARIYA Infusion Discontinued Medications Generic Name Dose Route Start Last Admin Trade Name Freq PRN Reason Stop Dose Admin Dextrose 25 gm 05/14/22 03:23 05/14/22 03:52 Dextrose 50 % 25 Gm/50 Ml Syringe IVPUSH 05/14/22 03:24 25 gm ONCE ONE Administration Sodium Chloride 2,463 mls @ 2,463 mls/hr 05/13/22 21:47 05/14/22 01:26 Ns 30 ml/kg infuse over 1 hr (2463 ml) 05/13/22 22:46 Infused IV Infusion .Q1H STA Piperacillin Sod/Tazobactam 50 mls @ 100 mls/hr 05/13/22 21:47 05/13/22 23:40 Sod 3.375 gm/ Sodium Chloride IV 05/13/22 22:16 Infused ONCE ONE Infusion Vancomycin HCl 1,500 mg/ 500 mls @ 333.333 mls/hr 05/13/22 21:47 05/14/22 01:26 Sodium Chloride IV 05/13/22 23:16 Infused ONCE ONE Infusion Magnesium Sulfate 2 gm in 50 mls @ 25 mls/hr 05/13/22 22:26 05/14/22 01:26 Magnesium Sulfate/H2o IV 05/14/22 00:25 Infused ONCE ONE Infusion Magnesium Sulfate 2 gm in 50 mls @ 25 mls/hr 05/14/22 03:25 05/14/22 05:49 Magnesium Sulfate/H2o IV 05/14/22 05:24 Infused ONCE ONE Infusion Iohexol 85 ml 05/14/22 02:13 05/14/22 02:13 Iohexol 350 Mg/Ml 100 Ml Infus..Btl IV 05/14/22 02:14 85 ml ONCE ONE Administration Ondansetron HCl 4 mg 05/13/22 21:33 05/13/22 22:12 Ondansetron Hcl 4 Mg/2 Ml Vial IVPUSH 05/13/22 21:34 4 mg ONCE ONE Administration <Rohit Engel MD - Last Filed: 05/14/22 07:16> Medical Decision Making Medical Decision Making MDM Narrative: Patient with vomiting and hyperglycemia. Diabetic ketoacidosis Gastritis, pancreatitis, hepatitis, diverticulitis, intra-abdominal abscess. Dehydration Hypokalemia Acute kidney injury There are multiple possible causes of patient's presentation. Given his blood pressure 100/55 with heart rate of 124. Will start aggressive IV fluids and rehydration. At this time, 22:07, his lactic acid is over 4. Although there are multiple etiologies for this lab value, sepsis is a potential. Will make sure IV fluid boluses 30 mL/kilos. Broad-spectrum antibiotics. Zofran for nausea CT scan <Marcelino Day MD - Last Filed: 05/13/22 22:08> Patient with vomiting and hyperglycemia. Diabetic ketoacidosis Gastritis, pancreatitis, hepatitis, diverticulitis, intra-abdominal abscess. Dehydration Hypokalemia Acute kidney injury There are multiple possible causes of patient's presentation. Given his blood pressure 100/55 with heart rate of 124. Will start aggressive IV fluids and rehydration. At this time, 22:07, his lactic acid is over 4. Although there are multiple etiologies for this lab value, sepsis is a potential. Will make sure IV fluid boluses 30 mL/kilos. Broad-spectrum antibiotics. Zofran for nausea CT scan CT/CT abdomen pelvis w IV con IMPRESSION: 1.? No acute findings identified in the abdomen/pelvis. 2.? Patchy regions of pulmonary opacity in the left lower lobe, suspicious for pneumonia or sequelae of aspiration. <Rohit Engel MD - Last Filed: 05/14/22 07:16> Lab Data MDM Lab Attestation statement: I reviewed the patient's lab results. <Rohit Engel MD - Last Filed: 05/14/22 07:16> Result Diagrams: 05/13/22 21:15 05/13/22 21:15 <Marcelino Day MD - Last Filed: 05/13/22 22:08> Labs: Lab Results 05/13/22 05/13/22 05/13/22 Range/Units 20:49 21:15 21:15 WBC 12.7 H (4.8-10.8) X10*3/uL RBC 4.64 (4.60-5.80) X10*6/uL Hgb 13.9 L (14.0-18.0) g/dl Hct 42.3 (42.0-52.0) % MCV 91.2 (80.0-98.0) fL MCH 30.0 (27.0-33.0) pg MCHC 32.9 (31.0-36.0) g/dl RDW 13.6 (11.0-16.0) % Plt Count 115 L (160-400) X10*3/uL MPV 9.9 (9.4-12.4) fL Immature Gran % (Auto) 0.4 (0.0-0.4) % Neut % (Auto) 85.2 H (45-73) % Lymph % (Auto) 9.8 L (20-40) % Woodson % (Auto) 4.1 (2-11) % Eos % (Auto) 0.1 (0-4) % Baso % (Auto) 0.4 (0-2) % Lymph # (Auto) 1.3 (1.2-4.9) X10*3/uL Woodson # (Auto) 0.5 (0.1-1.2) X10*3/uL Eos # (Auto) 0.0 (0.0-0.4) X10*3/uL Baso # (Auto) 0.1 (0.0-0.2) X10*3/uL Abs Immat Gran (auto) 0.05 H (0.00-0.03) X10*3/uL Absolute Neuts (auto) 10.8 H (2.0-8.3) x10*3/uL Absolute Nucleated RBC 0.000 (0.0-0.012) X10*3/uL Nucleated RBC % (auto) 0.0 (0.0-0.2) /100WBC Sodium 138 (135-145) mmol/L Potassium 3.6 (3.3-5.1) mmol/L Chloride 97 (96-108) mmol/L Carbon Dioxide 28 (22-29) mmol/L Anion Gap 17 (12-20) BUN 22 H (9-16) mg/dL Creatinine 1.13 (0.5-1.4) mg/dL Estim Creat Clear Calc 53.6 Estimated GFR > 60 POC Glucose 367 H* (60-115) mg/dL Random Glucose 353 H* (60-115) mg/dL Lactic Acid (0.5-2.0) mmol/L Lactic Acid F/U @ 2Hr (0.5-2.0) mmol/L Lactic Acid F/U @ 4Hr (0.5-2.0) mmol/L Calcium 9.6 (8.4-10.2) mg/dL Magnesium (1.6-2.6) mg/dL Total Bilirubin (0.0-1.0) mg/dL AST (5-37) U/L ALT (0-40) U/L Troponin I High Sens (<3.5-35.0) ng/L Lipase (8-78) U/L Influenza Type A (PCR) (Negative) Influenza Type B (PCR) (Negative) RSV RNA Qual (PCR) (Negative) SARS-CoV-2 RNA (RT-PCR) (Negative) 05/13/22 05/13/22 05/13/22 Range/Units 21:15 21:15 21:15 WBC (4.8-10.8) X10*3/uL RBC (4.60-5.80) X10*6/uL Hgb (14.0-18.0) g/dl Hct (42.0-52.0) % MCV (80.0-98.0) fL MCH (27.0-33.0) pg MCHC (31.0-36.0) g/dl RDW (11.0-16.0) % Plt Count (160-400) X10*3/uL MPV (9.4-12.4) fL Immature Gran % (Auto) (0.0-0.4) % Neut % (Auto) (45-73) % Lymph % (Auto) (20-40) % Woodson % (Auto) (2-11) % Eos % (Auto) (0-4) % Baso % (Auto) (0-2) % Lymph # (Auto) (1.2-4.9) X10*3/uL Woodson # (Auto) (0.1-1.2) X10*3/uL Eos # (Auto) (0.0-0.4) X10*3/uL Baso # (Auto) (0.0-0.2) X10*3/uL Abs Immat Gran (auto) (0.00-0.03) X10*3/uL Absolute Neuts (auto) (2.0-8.3) x10*3/uL Absolute Nucleated RBC (0.0-0.012) X10*3/uL Nucleated RBC % (auto) (0.0-0.2) /100WBC Sodium (135-145) mmol/L Potassium (3.3-5.1) mmol/L Chloride (96-108) mmol/L Carbon Dioxide (22-29) mmol/L Anion Gap (12-20) BUN (9-16) mg/dL Creatinine (0.5-1.4) mg/dL Estim Creat Clear Calc Estimated GFR POC Glucose (60-115) mg/dL Random Glucose (60-115) mg/dL Lactic Acid 4.7 H* (0.5-2.0) mmol/L Lactic Acid F/U @ 2Hr (0.5-2.0) mmol/L Lactic Acid F/U @ 4Hr (0.5-2.0) mmol/L Calcium 9.6 (8.4-10.2) mg/dL Magnesium 1.3 L* (1.6-2.6) mg/dL Total Bilirubin 1.1 H (0.0-1.0) mg/dL AST 13 (5-37) U/L ALT 9 (0-40) U/L Troponin I High Sens 5.6 D (<3.5-35.0) ng/L Lipase 5 L (8-78) U/L Influenza Type A (PCR) (Negative) Influenza Type B (PCR) (Negative) RSV RNA Qual (PCR) (Negative) SARS-CoV-2 RNA (RT-PCR) (Negative) 05/13/22 05/13/22 05/14/22 Range/Units 22:03 23:53 02:35 WBC (4.8-10.8) X10*3/uL RBC (4.60-5.80) X10*6/uL Hgb (14.0-18.0) g/dl Hct (42.0-52.0) % MCV (80.0-98.0) fL MCH (27.0-33.0) pg MCHC (31.0-36.0) g/dl RDW (11.0-16.0) % Plt Count (160-400) X10*3/uL MPV (9.4-12.4) fL Immature Gran % (Auto) (0.0-0.4) % Neut % (Auto) (45-73) % Lymph % (Auto) (20-40) % Woodson % (Auto) (2-11) % Eos % (Auto) (0-4) % Baso % (Auto) (0-2) % Lymph # (Auto) (1.2-4.9) X10*3/uL Woodson # (Auto) (0.1-1.2) X10*3/uL Eos # (Auto) (0.0-0.4) X10*3/uL Baso # (Auto) (0.0-0.2) X10*3/uL Abs Immat Gran (auto) (0.00-0.03) X10*3/uL Absolute Neuts (auto) (2.0-8.3) x10*3/uL Absolute Nucleated RBC (0.0-0.012) X10*3/uL Nucleated RBC % (auto) (0.0-0.2) /100WBC Sodium (135-145) mmol/L Potassium (3.3-5.1) mmol/L Chloride (96-108) mmol/L Carbon Dioxide (22-29) mmol/L Anion Gap (12-20) BUN (9-16) mg/dL Creatinine (0.5-1.4) mg/dL Estim Creat Clear Calc Estimated GFR POC Glucose (60-115) mg/dL Random Glucose (60-115) mg/dL Lactic Acid (0.5-2.0) mmol/L Lactic Acid F/U @ 2Hr 2.7 H* (0.5-2.0) mmol/L Lactic Acid F/U @ 4Hr 2.2 H* (0.5-2.0) mmol/L Calcium (8.4-10.2) mg/dL Magnesium (1.6-2.6) mg/dL Total Bilirubin (0.0-1.0) mg/dL AST (5-37) U/L ALT (0-40) U/L Troponin I High Sens (<3.5-35.0) ng/L Lipase (8-78) U/L Influenza Type A (PCR) NEGATIVE (Negative) Influenza Type B (PCR) NEGATIVE (Negative) RSV RNA Qual (PCR) NEGATIVE (Negative) SARS-CoV-2 RNA (RT-PCR) NEGATIVE (Negative) 05/14/22 05/14/22 Range/Units 03:12 03:18 WBC (4.8-10.8) X10*3/uL RBC (4.60-5.80) X10*6/uL Hgb (14.0-18.0) g/dl Hct (42.0-52.0) % MCV (80.0-98.0) fL MCH (27.0-33.0) pg MCHC (31.0-36.0) g/dl RDW (11.0-16.0) % Plt Count (160-400) X10*3/uL MPV (9.4-12.4) fL Immature Gran % (Auto) (0.0-0.4) % Neut % (Auto) (45-73) % Lymph % (Auto) (20-40) % Woodson % (Auto) (2-11) % Eos % (Auto) (0-4) % Baso % (Auto) (0-2) % Lymph # (Auto) (1.2-4.9) X10*3/uL Woodson # (Auto) (0.1-1.2) X10*3/uL Eos # (Auto) (0.0-0.4) X10*3/uL Baso # (Auto) (0.0-0.2) X10*3/uL Abs Immat Gran (auto) (0.00-0.03) X10*3/uL Absolute Neuts (auto) (2.0-8.3) x10*3/uL Absolute Nucleated RBC (0.0-0.012) X10*3/uL Nucleated RBC % (auto) (0.0-0.2) /100WBC Sodium (135-145) mmol/L Potassium (3.3-5.1) mmol/L Chloride (96-108) mmol/L Carbon Dioxide (22-29) mmol/L Anion Gap (12-20) BUN (9-16) mg/dL Creatinine (0.5-1.4) mg/dL Estim Creat Clear Calc Estimated GFR POC Glucose 58 L* 215 H (60-115) mg/dL Random Glucose (60-115) mg/dL Lactic Acid (0.5-2.0) mmol/L Lactic Acid F/U @ 2Hr (0.5-2.0) mmol/L Lactic Acid F/U @ 4Hr (0.5-2.0) mmol/L Calcium (8.4-10.2) mg/dL Magnesium (1.6-2.6) mg/dL Total Bilirubin (0.0-1.0) mg/dL AST (5-37) U/L ALT (0-40) U/L Troponin I High Sens (<3.5-35.0) ng/L Lipase (8-78) U/L Influenza Type A (PCR) (Negative) Influenza Type B (PCR) (Negative) RSV RNA Qual (PCR) (Negative) SARS-CoV-2 RNA (RT-PCR) (Negative) <Marcelino Day MD - Last Filed: 05/13/22 22:08> Lab Results 05/13/22 05/13/22 05/13/22 Range/Units 20:49 21:15 21:15 WBC 12.7 H (4.8-10.8) X10*3/uL RBC 4.64 (4.60-5.80) X10*6/uL Hgb 13.9 L (14.0-18.0) g/dl Hct 42.3 (42.0-52.0) % MCV 91.2 (80.0-98.0) fL MCH 30.0 (27.0-33.0) pg MCHC 32.9 (31.0-36.0) g/dl RDW 13.6 (11.0-16.0) % Plt Count 115 L (160-400) X10*3/uL MPV 9.9 (9.4-12.4) fL Immature Gran % (Auto) 0.4 (0.0-0.4) % Neut % (Auto) 85.2 H (45-73) % Lymph % (Auto) 9.8 L (20-40) % Woodson % (Auto) 4.1 (2-11) % Eos % (Auto) 0.1 (0-4) % Baso % (Auto) 0.4 (0-2) % Lymph # (Auto) 1.3 (1.2-4.9) X10*3/uL Woodson # (Auto) 0.5 (0.1-1.2) X10*3/uL Eos # (Auto) 0.0 (0.0-0.4) X10*3/uL Baso # (Auto) 0.1 (0.0-0.2) X10*3/uL Abs Immat Gran (auto) 0.05 H (0.00-0.03) X10*3/uL Absolute Neuts (auto) 10.8 H (2.0-8.3) x10*3/uL Absolute Nucleated RBC 0.000 (0.0-0.012) X10*3/uL Nucleated RBC % (auto) 0.0 (0.0-0.2) /100WBC Sodium 138 (135-145) mmol/L Potassium 3.6 (3.3-5.1) mmol/L Chloride 97 (96-108) mmol/L Carbon Dioxide 28 (22-29) mmol/L Anion Gap 17 (12-20) BUN 22 H (9-16) mg/dL Creatinine 1.13 (0.5-1.4) mg/dL Estim Creat Clear Calc 53.6 Estimated GFR > 60 POC Glucose 367 H* (60-115) mg/dL Random Glucose 353 H* (60-115) mg/dL Lactic Acid (0.5-2.0) mmol/L Lactic Acid F/U @ 2Hr (0.5-2.0) mmol/L Lactic Acid F/U @ 4Hr (0.5-2.0) mmol/L Calcium 9.6 (8.4-10.2) mg/dL Magnesium (1.6-2.6) mg/dL Total Bilirubin (0.0-1.0) mg/dL AST (5-37) U/L ALT (0-40) U/L Troponin I High Sens (<3.5-35.0) ng/L Lipase (8-78) U/L Influenza Type A (PCR) (Negative) Influenza Type B (PCR) (Negative) RSV RNA Qual (PCR) (Negative) SARS-CoV-2 RNA (RT-PCR) (Negative) 05/13/22 05/13/22 05/13/22 Range/Units 21:15 21:15 21:15 WBC (4.8-10.8) X10*3/uL RBC (4.60-5.80) X10*6/uL Hgb (14.0-18.0) g/dl Hct (42.0-52.0) % MCV (80.0-98.0) fL MCH (27.0-33.0) pg MCHC (31.0-36.0) g/dl RDW (11.0-16.0) % Plt Count (160-400) X10*3/uL MPV (9.4-12.4) fL Immature Gran % (Auto) (0.0-0.4) % Neut % (Auto) (45-73) % Lymph % (Auto) (20-40) % Woodson % (Auto) (2-11) % Eos % (Auto) (0-4) % Baso % (Auto) (0-2) % Lymph # (Auto) (1.2-4.9) X10*3/uL Woodson # (Auto) (0.1-1.2) X10*3/uL Eos # (Auto) (0.0-0.4) X10*3/uL Baso # (Auto) (0.0-0.2) X10*3/uL Abs Immat Gran (auto) (0.00-0.03) X10*3/uL Absolute Neuts (auto) (2.0-8.3) x10*3/uL Absolute Nucleated RBC (0.0-0.012) X10*3/uL Nucleated RBC % (auto) (0.0-0.2) /100WBC Sodium (135-145) mmol/L Potassium (3.3-5.1) mmol/L Chloride (96-108) mmol/L Carbon Dioxide (22-29) mmol/L Anion Gap (12-20) BUN (9-16) mg/dL Creatinine (0.5-1.4) mg/dL Estim Creat Clear Calc Estimated GFR POC Glucose (60-115) mg/dL Random Glucose (60-115) mg/dL Lactic Acid 4.7 H* (0.5-2.0) mmol/L Lactic Acid F/U @ 2Hr (0.5-2.0) mmol/L Lactic Acid F/U @ 4Hr (0.5-2.0) mmol/L Calcium 9.6 (8.4-10.2) mg/dL Magnesium 1.3 L* (1.6-2.6) mg/dL Total Bilirubin 1.1 H (0.0-1.0) mg/dL AST 13 (5-37) U/L ALT 9 (0-40) U/L Troponin I High Sens 5.6 D (<3.5-35.0) ng/L Lipase 5 L (8-78) U/L Influenza Type A (PCR) (Negative) Influenza Type B (PCR) (Negative) RSV RNA Qual (PCR) (Negative) SARS-CoV-2 RNA (RT-PCR) (Negative) 05/13/22 05/13/22 05/14/22 Range/Units 22:03 23:53 02:35 WBC (4.8-10.8) X10*3/uL RBC (4.60-5.80) X10*6/uL Hgb (14.0-18.0) g/dl Hct (42.0-52.0) % MCV (80.0-98.0) fL MCH (27.0-33.0) pg MCHC (31.0-36.0) g/dl RDW (11.0-16.0) % Plt Count (160-400) X10*3/uL MPV (9.4-12.4) fL Immature Gran % (Auto) (0.0-0.4) % Neut % (Auto) (45-73) % Lymph % (Auto) (20-40) % Woodson % (Auto) (2-11) % Eos % (Auto) (0-4) % Baso % (Auto) (0-2) % Lymph # (Auto) (1.2-4.9) X10*3/uL Woodson # (Auto) (0.1-1.2) X10*3/uL Eos # (Auto) (0.0-0.4) X10*3/uL Baso # (Auto) (0.0-0.2) X10*3/uL Abs Immat Gran (auto) (0.00-0.03) X10*3/uL Absolute Neuts (auto) (2.0-8.3) x10*3/uL Absolute Nucleated RBC (0.0-0.012) X10*3/uL Nucleated RBC % (auto) (0.0-0.2) /100WBC Sodium (135-145) mmol/L Potassium (3.3-5.1) mmol/L Chloride (96-108) mmol/L Carbon Dioxide (22-29) mmol/L Anion Gap (12-20) BUN (9-16) mg/dL Creatinine (0.5-1.4) mg/dL Estim Creat Clear Calc Estimated GFR POC Glucose (60-115) mg/dL Random Glucose (60-115) mg/dL Lactic Acid (0.5-2.0) mmol/L Lactic Acid F/U @ 2Hr 2.7 H* (0.5-2.0) mmol/L Lactic Acid F/U @ 4Hr 2.2 H* (0.5-2.0) mmol/L Calcium (8.4-10.2) mg/dL Magnesium (1.6-2.6) mg/dL Total Bilirubin (0.0-1.0) mg/dL AST (5-37) U/L ALT (0-40) U/L Troponin I High Sens (<3.5-35.0) ng/L Lipase (8-78) U/L Influenza Type A (PCR) NEGATIVE (Negative) Influenza Type B (PCR) NEGATIVE (Negative) RSV RNA Qual (PCR) NEGATIVE (Negative) SARS-CoV-2 RNA (RT-PCR) NEGATIVE (Negative) 05/14/22 05/14/22 Range/Units 03:12 03:18 WBC (4.8-10.8) X10*3/uL RBC (4.60-5.80) X10*6/uL Hgb (14.0-18.0) g/dl Hct (42.0-52.0) % MCV (80.0-98.0) fL MCH (27.0-33.0) pg MCHC (31.0-36.0) g/dl RDW (11.0-16.0) % Plt Count (160-400) X10*3/uL MPV (9.4-12.4) fL Immature Gran % (Auto) (0.0-0.4) % Neut % (Auto) (45-73) % Lymph % (Auto) (20-40) % Woodson % (Auto) (2-11) % Eos % (Auto) (0-4) % Baso % (Auto) (0-2) % Lymph # (Auto) (1.2-4.9) X10*3/uL Woodson # (Auto) (0.1-1.2) X10*3/uL Eos # (Auto) (0.0-0.4) X10*3/uL Baso # (Auto) (0.0-0.2) X10*3/uL Abs Immat Gran (auto) (0.00-0.03) X10*3/uL Absolute Neuts (auto) (2.0-8.3) x10*3/uL Absolute Nucleated RBC (0.0-0.012) X10*3/uL Nucleated RBC % (auto) (0.0-0.2) /100WBC Sodium (135-145) mmol/L Potassium (3.3-5.1) mmol/L Chloride (96-108) mmol/L Carbon Dioxide (22-29) mmol/L Anion Gap (12-20) BUN (9-16) mg/dL Creatinine (0.5-1.4) mg/dL Estim Creat Clear Calc Estimated GFR POC Glucose 58 L* 215 H (60-115) mg/dL Random Glucose (60-115) mg/dL Lactic Acid (0.5-2.0) mmol/L Lactic Acid F/U @ 2Hr (0.5-2.0) mmol/L Lactic Acid F/U @ 4Hr (0.5-2.0) mmol/L Calcium (8.4-10.2) mg/dL Magnesium (1.6-2.6) mg/dL Total Bilirubin (0.0-1.0) mg/dL AST (5-37) U/L ALT (0-40) U/L Troponin I High Sens (<3.5-35.0) ng/L Lipase (8-78) U/L Influenza Type A (PCR) (Negative) Influenza Type B (PCR) (Negative) RSV RNA Qual (PCR) (Negative) SARS-CoV-2 RNA (RT-PCR) (Negative) <Rohit Engel MD - Last Filed: 05/14/22 07:16> Discharge Plan Discharge Clinical Impression: Aspiration pneumonia, Acute respiratory failure with hypoxia, Acidosis, lactic <Marcelino Day MD - Last Filed: 05/13/22 22:08> Patient Disposition: Admitted As Inpatient <Marcelino Day MD - Last Filed: 05/13/22 22:08> Interventions: Admission Worksheet (ED) Last Done: 05/14/22 05:50 <Marcelino Day MD - Last Filed: 05/13/22 22:08> Discharge Date/Time: 05/14/22 05:51 <Marcelino Day MD - Last Filed: 05/13/22 22:08>
[2022-05-13] MEDS: ondansetron HCL 4 MG/2 ML VIAL IVPUSH (22:12)
[2022-05-13] MEDS: Piperacillin Sodium/Tazobactam 3.375 GM in 0.9 % Sodium Chloride 50 ML IV (22:13)
[2022-05-13] MEDS: vancomycin HCL 1,500 MG in 0.9 % Sodium Chloride 500 ML 333.33 MG IV (22:14)
[2022-05-13 22:19] VITALS: BP 81/51; PULSE 114; RESP 29
[2022-05-13 22:25] LABS: Alanine Aminotransferase 9 U/L (0-40); Aspartate Amino Transferase 13 U/L (5-37); Bilirubin Total 1.1 mg/dL (0.0-1.0); Calcium 9.6 mg/dL (8.4-10.2); Lipase 5 U/L (8-78); Magnesium 1.3 mg/dL (1.6-2.6)
[2022-05-13 22:46] LABS: Influenza A PCR NEGATIVE (Negative); Influenza B PCR NEGATIVE (Negative); Resp Syncy Virus RNA Qual PCR NEGATIVE (Negative); SARS COV2 PCR INHOUSE NEGATIVE (Negative)
[2022-05-13] MEDS: Magnesium Sulfate/H2O 2 GM/50 ML PIGGYBACK IV (22:52)
[2022-05-13 22:54] VITALS: BP 106/63; PULSE 107; RESP 17; O2SAT 95
[2022-05-13 23:21] LABS: Reflex Lactate? Lactic Acid Added
[2022-05-14 00:14] LABS: ~Lactic Acid-LAB USE ONLY 2.7 mmol/L (0.5-2.0)
[2022-05-14 00:15] VITALS: BP 117/65; PULSE 97; RESP 12; O2SAT 97
[2022-05-14 01:57] LABS: Reflex Lactate? 2 Y
[2022-05-14] MEDS: iohexoL 350 MG/ML 100 ML INFUS..BTL 85 ML IV (02:13)
[2022-05-14 03:06] LABS: ~Lactic Acid-LAB USE ONLY 2.2 mmol/L (0.5-2.0)
--- NOTE | 2022-05-14 03:21 | PC.NURSE ---
Addendum entered by Stacey Mcneill 05/14/22 04:18: lat entry: requested re-check of sugar, which read 215. MD expressed concern that original POC of 58 was false reading, will continue to monitor Original Note: this RN went in to check pt POC, pt blood sugar read low in 50s, verbal order from Dr. Hameed to give D50 push. will re-check sugar shortly
[2022-05-14 03:23] LABS: Glucose, Whole Blood 58 mg/dL (60-115)
[2022-05-14 03:23] LABS: Glucose, Whole Blood 215 mg/dL (60-115)
--- NOTE | 2022-05-14 03:25 | PM.IMHP ---
History of Present Illness Date of Service: 05/14/22 Chief Complaint: Nausea vomiting 82-year-old male with past medical history of CAD, CKD stage 3, BPH, diabetes, ischemic cardiomyopathy status post ICD, history of orthostatic hypotension, TIA, dyslipidemia, presents to the hospital with complaints of nausea vomiting, patient is alert oriented to self and place, tells me that he has been harboring multiple episodes of nausea vomiting at home as well as abnormal sugar readings are for decided to come to the hospital. He lives with his grandson's but they are busy and told him to come to the hospital to be evaluated. Patient denies any abdominal pain, no chest pain, no palpitations, no shortness of breath, reports no urinary symptoms and no lower extremity edema. Patient denies having history of difficulty swallowing choking on his food, no history of dysphagia. On arrival to the ED patient found to have a heart rate of 124, respiratory rate of 24, blood pressure of 100/55 satting 94% on room air . Although not documented there was a report the patient was 86% on room air on arrival Labs are significant for WBC count of 13.4, hemoglobin of 12.6, hematocrit 37.8, glucose in the 300s but dropped 58 with no treatment, lactic acid of 4.7, magnesium of 1.3, troponin negative, influenza COVID and RSV negative Abdomen pelvic CT shows no acute findings identified in the abdomen or pelvis, patchy regions of pulmonary opacities in the left lower lobe, suspicious for pneumonia or sequelae of aspiration Patient started on antibiotics and will be admitted for further management Review of Systems Review of Systems: Yes all other systems are reviewed and are negative [facility] Medical History 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 BPH (benign prostatic hyperplasia) CAD (coronary artery disease) Chronic pain syndrome CKD stage 3 due to type 2 diabetes mellitus COVID-19 vaccine administered Diabetes type 2, uncontrolled Diabetic nephropathy associated with type 2 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 Dyslipidemia (high LDL; low HDL) Fluid collection at surgical site Hard of hearing History of anal fissures Hx of cardiomyopathy Hypertension 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 senior care (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 insulin Obesity Orthostatic hypotension Poorly controlled diabetes mellitus Pre-op evaluation Spinal stenosis, lumbar region without neurogenic claudication Spondylosis, unspecified TIA (transient ischemic attack) Type 2 diabetes mellitus with hyperlipidemia Vitamin D deficiency Family History Father Colon cancer Lung cancer Mother Diabetes Surgical History H/O colonoscopy History of bowel resection History of cardiac defibrillator placement History of surgery Hx of cataract surgery Hx of cholecystectomy Hx of coronary artery bypass graft Hx of hernia repair Social History Household Members: Children Household Members Other:: 3 Housing: House Are you a primary child care education coordinator to a significant other at home: No Do you presently have visiting nurse or other home services: No Alcohol intake: never Patient Tobacco Use Status: Never used Tobacco Smoked in Last 30 Days: No e-Cigarette/Vaping Use: Never Used Patient Interested in Nicotine Replacement: No Patient Given Instructions on How to Stop Smoking: No Second Hand Smoke Exposure: No Use of substances other than those prescribed or required for medical reasons: No Currently Displaying Signs/Symptoms of Drug Intoxication Withdrawal: No Any prior treatment program specific to substance use: No Have you been hit, kicked, punched, or otherwise hurt by someone within the past year? If so, by whom?: No Do you feel safe in your current relationship?: No Current Relationship Is there a partner from a previous relationship who is making you feel unsafe now?: No Are you made to feel afraid or neglected: No Advance Directives: No Do you have thoughts of harming others: None Do you have a plan to hurt others: No Plan Recently lost weight without trying: Yes How much weight loss: 14-23 pounds Eating poorly because of decreased appetite: Yes Nutrition screen score: 5 Nutrition Risks: On aspiration precautions Poor oral hygiene: No service: No Current occupational status: retired Cognitive needs: Yes Hearing needs: Yes Vision needs: Yes Meds Allergies Allergy/AdvReac Type Severity Reaction Status Date / Time No Known Allergies Allergy Verified 04/30/22 09:30 [No Known Allergies*] Active Medications: Current Medications Acetaminophen (Acetaminophen 325 Mg Tablet) 650 mg PO Q6H PRN PRN Reason: Pain, Mild (Pain Scale 1-3) Dextrose (Dextrose 50 % 25 Gm/50 Ml Syringe) 25 gm IVPUSH Q15M PRN; Protocol PRN Reason: per Hypoglycemia Standing Ord. Glucose (Glucose Gel 15 Gm Gel..Gram.) 15 gm PO Q15M PRN; Protocol PRN Reason: per Hypoglycemia Standing Ord. Heparin Sodium (Porcine) (Heparin Sodium,Porcine 5,000 Unit/Ml Vial) 5,000 unit SUBCUT Q12H [facility] Lactated Ringer's (Lr) 1,000 mls @ 100 mls/hr IVCONT .Q10H [facility] Piperacillin Sod/Tazobactam (Sod 3.375 gm/ Sodium Chloride) 50 mls @ 100 mls/hr IV Q6H [facility] Insulin Human Lispro (Insulin Lispro 100 Unit/Ml 3 Ml Vial) 0 unit SUBCUT QIDACHS [facility]; Protocol Ondansetron HCl (Ondansetron Hcl 4 Mg/2 Ml Vial) 4 mg IVPUSH Q8H PRN PRN Reason: Nausea and Vomiting Sodium Chloride (0.9 % Sodium Chloride Flush 3 Ml Syringe) 3 ml IVFLUSH QSHIFT [facility] Home Medications Medication Instructions Recorded Confirmed Last Taken Type tamsulosin 0.4 mg capsule 0.4 mg PO BEDTIME 01/30/20 04/16/22 03/15/22 History nitroglycerin 0.4 mg sublingual 0.4 mg sublingual ONCE PRN Chest 07/15/20 05/14/22 05/13/22 History tablet Pain midodrine 10 mg tablet 10 mg PO BID@0900,1700 11/04/21 05/14/22 03/15/22 History ascorbic acid (vitamin C) 500 mg 500 mg PO DAILY 11/15/21 05/14/22 05/13/22 History tablet cyanocobalamin (vitamin B-12) 1,000 mcg PO DAILY 11/15/21 05/14/22 05/13/22 History 1,000 mcg tablet multivitamin 1 tab PO DAILY 11/15/21 05/14/22 03/15/22 History acetaminophen 325 mg tablet 650 mg PO BID 03/16/22 05/14/22 05/13/22 History dulaglutide 3 mg/0.5 mL 3 mg subcut SA 03/16/22 05/14/22 05/13/22 History subcutaneous pen injector (Trulicity) melatonin 3 mg tablet 3 mg PO BEDTIME PRN Insomnia 03/16/22 05/14/22 05/13/22 History tramadol 50 mg tablet 50 mg PO Q6H PRN Pain 03/16/22 05/14/22 05/13/22 History blood sugar diagnostic (FreeStyle #10 ea 04/16/22 04/16/22 Unknown History Lite Strips) dulaglutide 1.5 mg/0.5 mL 1.5 mg subcut QWEEK 04/16/22 05/14/22 05/13/22 History subcutaneous pen injector (Trulicity) insulin lispro 100 unit/mL See Rx Instructions subcut .COMPLEX 04/16/22 05/14/22 05/13/22 History subcutaneous pen (Humalog KwikPen (U-100) Insulin) Physical Exam Vital Signs and Narrative: Vital Signs: Last Vital Signs Temp 97.5 F 05/13/22 20:50 Pulse 97 05/14/22 00:15 Resp 12 05/14/22 00:15 BP 117/65 05/14/22 00:15 Pulse Ox 97 05/14/22 00:15 O2 Del Method 05/14/22 00:15 BMI result Body Mass Index 25.2 Const: General: cooperative and no acute distress Orientation/consciousness: patient oriented x3 Eyes: General: appearance normal, both eyes and all related structures Resp: Effort & Inspection: normal respiratory effort Auscultation: clear to auscultation bilaterally Cardio: Rate: regular rate Rhythm: regular rhythm GI: Palpation (GI): Soft to palpation Auscultation: normal bowel sounds Skin: General skin exam: no rashes or lesions noted Neuro: General: patient oriented x3 Cognition (Neuro): normal cognition Extrem: General: Yes normal to inspection and Yes no pedal edema Results Labs 05/13/22 21:15 05/13/22 21:15 Labs: Laboratory Results - last 24 hr 05/13/22 05/13/22 05/13/22 20:49 21:15 21:15 MCV 91.2 MCH 30.0 MCHC 32.9 RDW 13.6 Plt Count 115 L MPV 9.9 Immature Gran % (Auto) 0.4 Neut % (Auto) 85.2 H Lymph % (Auto) 9.8 L Wood % (Auto) 4.1 Eos % (Auto) 0.1 Baso % (Auto) 0.4 Lymph # (Auto) 1.3 Wood # (Auto) 0.5 Eos # (Auto) 0.0 Baso # (Auto) 0.1 Abs Immat Gran (auto) 0.05 H Absolute Neuts (auto) 10.8 H Absolute Nucleated RBC 0.000 Nucleated RBC % (auto) 0.0 Anion Gap 17 Estim Creat Clear Calc 53.6 Estimated GFR > 60 POC Glucose 367 H* Random Glucose 353 H* Lactic Acid Lactic Acid F/U @ 2Hr Lactic Acid F/U @ 4Hr Calcium 9.6 Magnesium Total Bilirubin AST ALT Troponin I High Sens Lipase Influenza Type A (PCR) Influenza Type B (PCR) RSV RNA Qual (PCR) SARS-CoV-2 RNA (RT-PCR) 05/13/22 05/13/22 05/13/22 21:15 21:15 21:15 MCV MCH MCHC RDW Plt Count MPV Immature Gran % (Auto) Neut % (Auto) Lymph % (Auto) Wood % (Auto) Eos % (Auto) Baso % (Auto) Lymph # (Auto) Wood # (Auto) Eos # (Auto) Baso # (Auto) Abs Immat Gran (auto) Absolute Neuts (auto) Absolute Nucleated RBC Nucleated RBC % (auto) Anion Gap Estim Creat Clear Calc Estimated GFR POC Glucose Random Glucose Lactic Acid 4.7 H* Lactic Acid F/U @ 2Hr Lactic Acid F/U @ 4Hr Calcium 9.6 Magnesium 1.3 L* Total Bilirubin 1.1 H AST 13 ALT 9 Troponin I High Sens 5.6 D Lipase 5 L Influenza Type A (PCR) Influenza Type B (PCR) RSV RNA Qual (PCR) SARS-CoV-2 RNA (RT-PCR) 05/13/22 05/13/22 05/14/22 22:03 23:53 02:35 MCV MCH MCHC RDW Plt Count MPV Immature Gran % (Auto) Neut % (Auto) Lymph % (Auto) Wood % (Auto) Eos % (Auto) Baso % (Auto) Lymph # (Auto) Wood # (Auto) Eos # (Auto) Baso # (Auto) Abs Immat Gran (auto) Absolute Neuts (auto) Absolute Nucleated RBC Nucleated RBC % (auto) Anion Gap Estim Creat Clear Calc Estimated GFR POC Glucose Random Glucose Lactic Acid Lactic Acid F/U @ 2Hr 2.7 H* Lactic Acid F/U @ 4Hr 2.2 H* Calcium Magnesium Total Bilirubin AST ALT Troponin I High Sens Lipase Influenza Type A (PCR) NEGATIVE Influenza Type B (PCR) NEGATIVE RSV RNA Qual (PCR) NEGATIVE SARS-CoV-2 RNA (RT-PCR) NEGATIVE 05/14/22 05/14/22 03:12 03:18 MCV MCH MCHC RDW Plt Count MPV Immature Gran % (Auto) Neut % (Auto) Lymph % (Auto) Wood % (Auto) Eos % (Auto) Baso % (Auto) Lymph # (Auto) Wood # (Auto) Eos # (Auto) Baso # (Auto) Abs Immat Gran (auto) Absolute Neuts (auto) Absolute Nucleated RBC Nucleated RBC % (auto) Anion Gap Estim Creat Clear Calc Estimated GFR POC Glucose 58 L* 215 H Random Glucose Lactic Acid Lactic Acid F/U @ 2Hr Lactic Acid F/U @ 4Hr Calcium Magnesium Total Bilirubin AST ALT Troponin I High Sens Lipase Influenza Type A (PCR) Influenza Type B (PCR) RSV RNA Qual (PCR) SARS-CoV-2 RNA (RT-PCR) Imaging Radiologist's Impressions: Impressions Abdomen/Pelvis CT 05/14/22 02:05 IMPRESSION: 1. No acute findings identified in the abdomen/pelvis. 2. Patchy regions of pulmonary opacity in the left lower lobe, suspicious for pneumonia or sequelae of aspiration. Assessment and Plan (1) Pneumonia: Status: Acute (2) Acute respiratory failure with hypoxia: Status: Acute (3) Acidosis, lactic: Status: Acute (4) Nausea & vomiting: Status: Acute (5) Sepsis: Status: Acute Plan 82-year-old male with past medical history as mentioned above presents to the hospital with complaints of nausea vomiting, found to have pneumonia # sepsis - likely secondary to pneumonia - has leukocytosis, tachycardia, tachypnea, as well as elevated lactic acid - will treat with IV antibiotics, received IV fluids, - follow cultures # acute respiratory failure with hypoxia - likely secondary to pneumonia, aspiration versus bacterial community-acquired - will treat with IV antibiotics to cover both - currently satting 94% on room air - monitor oxygen requirement # pneumonia - aspiration versus community-acquired - has leukocytosis, tachycardia, tachypnea - will treat with IV antibiotics - follow cultures - patient denies any history of dysphagia, had episodes of vomiting, if aspirated likely secondary to vomiting and not necessarily secondary to dysphagia, at this time will hold off speech eval # lactic acidosis - secondary to above - improved with IV fluid - continue IVF # nausea vomiting - likely secondary to viral gastritis - lipase negative, abdomen CT shows no acute abdominal abnormality - antiemetics # diabetes - low-dose sliding scale insulin - glucose from 300 to 50s with no intervention, received D50 with improvement - patient seems to be on significant amount of insulin, this time will hold, monitor POC q.i.d. a.c. HS # history of orthostatic hypotension - continue midodrine DVT prophylaxis: Heparin subQ Given patient's hypoxia, sepsis, pneumonia requiring IV antibiotics, patient require minimum 2 night inpatient hospital stay for further management and monitoring Time Spent With Patient Time: Total time managing care of this patient today ____ minutes. Quality Stroke Does the patient have a stroke diagnosis?: No VTE Prior VTE?: No VTE Risk Level:: Medical - moderate - high VTE Device Contraindication: Treatment Not Indicated VTE Drug Contraindication: N/A - Med Ordered
[2022-05-14 03:50] LABS: Glucose, Whole Blood 160 mg/dL (60-115)
[2022-05-14] MEDS: Lactated Ringers 1,000 ML 100 ML IVCONT ×3 (03:52→23:30)
[2022-05-14] MEDS: Dextrose 50 % 25 GM/50 ML SYRINGE IVPUSH (03:52)
[2022-05-14 03:58] LABS: MANUAL DIFF FLAG NO
[2022-05-14 03:59] LABS: Glucose, Whole Blood 138 mg/dL (60-115)
[2022-05-14] MEDS: Heparin Sodium,Porcine 5,000 UNIT/ML VIAL 5000 UNIT SUBCUT ×2 (03:59→15:04)
[2022-05-14] MEDS: Magnesium Sulfate/H2O 2 GM/50 ML PIGGYBACK IV (04:00)
[2022-05-14 04:01] LABS: Basophils Percent Auto 0.2 % (0-2); Hematocrit 37.8 % (42.0-52.0); Hemoglobin 12.6 g/dl (14.0-18.0); Imm Gran Abs Auto 0.07 X10*3/uL (0.00-0.03); Imm Gran Pct Auto 0.5 % (0.0-0.4); Lymphocytes Absolute Auto 0.7 X10*3/uL (1.2-4.9); Lymphocytes Percent Auto 5.5 % (20-40); Mean Corpuscular HGB Conc 33.3 g/dl (31.0-36.0); Mean Corpuscular Hemoglobin 30.4 pg (27.0-33.0); Mean Corpuscular Volume 91.3 fL (80.0-98.0); Mean Platelet Volume 10.2 fL (9.4-12.4); Monocytes Absolute Auto 1.1 X10*3/uL (0.1-1.2); Monocytes Percent Auto 7.9 % (2-11); Neutrophils Absolute Auto 11.5 x10*3/uL (2.0-8.3); Neutrophils Percent Auto 85.9 % (45-73); Red Blood Count 4.14 X10*6/uL (4.60-5.80); Red Cell Distribution Width 13.8 % (11.0-16.0); White Blood Count 13.4 X10*3/uL (4.8-10.8)
[2022-05-14 04:05] LABS: Platelet Count 92 X10*3/uL (160-400)
[2022-05-14 04:06] VITALS: BP 114/59; PULSE 93; RESP 13; O2SAT 95
[2022-05-14 04:13] LABS: Anion Gap 12 (12-20); Blood Urea Nitrogen 22 mg/dL (9-16); Calcium 9.1 mg/dL (8.4-10.2); Carbon Dioxide 29 mmol/L (22-29); Chloride 102 mmol/L (96-108); Creatinine Clr Calc Pharmacy 60.6; Estimated Glomerular Filt Rate > 60; Glucose Random 139 mg/dL (60-115); Magnesium 1.5 mg/dL (1.6-2.6); Potassium 3.7 mmol/L (3.3-5.1); Sodium 139 mmol/L (135-145)
--- NOTE | 2022-05-14 04:19 | PC.NURSE ---
repeat readings of POC in the 130-160 range. MD Hameed aware. Pt continues to remain alert and oriented, showing no signs of lethargy, skin pwd.
[2022-05-14 05:22] LABS: Glucose, Whole Blood 92 mg/dL (60-115)
[2022-05-14] MEDS: Piperacillin Sodium/Tazobactam 3.375 GM in 0.9 % Sodium Chloride 50 ML IV ×4 (06:15→23:26)
[2022-05-14 06:19] VITALS: BMI 25.6
[2022-05-14 06:35] VITALS: BP 140/64; PULSE 95; RESP 18; TEMP 36.8; O2SAT 96
[2022-05-14 07:42] LABS: Glucose, Whole Blood 112 mg/dL (60-115)
--- NOTE | 2022-05-14 09:18 | PM.EVENT ---
Event Note Date of Service: 05/14/22 Event Note: Seen and examined, admitted with PNA, no hypoxia, feels better. Continue IV for 1 more day and consider DC tomorrow with oral Ceftin 500 bid Time Spent With Patient Time: Total time managing care of this patient today ____ minutes.
--- NOTE | 2022-05-14 10:18 | PHA.MEDREC ---
Pharmacy Consult ? Medication Reconciliation Pharmacy has completed the medication reconciliation. Patient unaware of medications, apparently uses an agency. used list from md office visit/geri sandhu.
[2022-05-14 11:45] LABS: Glucose, Whole Blood 238 mg/dL (60-115)
--- NOTE | 2022-05-14 11:47 | P.CDIC_ITS ---
CDI Concurrent Query Documentation Clarification: PHYSICIAN'S DOCUMENTATION REQUEST Date of Query: 05/14/22 1142 Patient Name: Luiz Castaneda Admit Date: 05/14/22 Dear Doctor, A review of the medical record indicates additional documentation may be needed. Please review below and update the documentation accordingly. Clinical Indicators: Risk Factors/Clinical Indicators/Treatments H&P 05/13 - Plan: Lactic acidosis Improved with IV fluids. Continue IVF. LA 4.7 Based on the above, could you clarify in the Progress Notes the appropriate diagnosis, if significant, that supports the above abnormalities and additional evaluation, monitoring, and/or treatment rendered: Acquity: * Lactic acidosis * Acute Lactic acidosis * Other (please specify) * Unable to determine Use of terms such as suspected, likely, concern for, or probable (associated with a specific diagnosis that is being evaluated, monitored, or treated as if it exists) are acceptable and can be coded in the inpatient setting, when documented at the time of discharge. Thank you, Karissa Calix [facility], CDIS Extension: [phone] Please use your independent medical judgment in providing your response. THIS QUERY IS PART OF THE PERMANENT MEDICAL RECORD Provider Response: Other Other Diagnosis: acute lactic acidosis
[2022-05-14] MEDS: Insulin Lispro 100 UNIT/ML 3 ML VIAL SUBCUT ×3 (12:04→20:44)
--- NOTE | 2022-05-14 13:08 | MHC.CM.PN ---
PATIENT LIVES WITH HIS 3GRANDSONS. HE IS INDEPENDENT WITH HIS ADLS, INCLUDING DRIVING. COVID VACCINATED. 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 AND RECENTLY FRIENDS HAVE BEEN TRANSPORTING HIM. IMM 05/14 IN CHART DC: PLAN IS HOME TOMORROW
--- NOTE | 2022-05-14 15:57 | MHC.CM.PN ---
PATIENT WAS ACTIVE WITH [facility] IN THE PAST THEY ARE WILLING TO ACCEPT PATIENT BACK IF HE NEEDS SERVICES REFERRAL PLACED FOR AGENCY TO FOLLOW
[2022-05-14 16:00] VITALS: BP 121/64; PULSE 81; RESP 17; TEMP 36.6; O2SAT 95
[2022-05-14 16:35] LABS: Glucose, Whole Blood 252 mg/dL (60-115)
[2022-05-14 19:33] VITALS: BP 122/60; PULSE 85; RESP 17; TEMP 36.3; O2SAT 94
[2022-05-14 20:35] LABS: Glucose, Whole Blood 181 mg/dL (60-115)
[2022-05-14] MEDS: Tamsulosin HCL 0.4 MG CAPSULE PO (20:44)
[2022-05-14] MEDS: Atorvastatin Calcium 10 MG TABLET PO (20:44)
[2022-05-14] MEDS: Gabapentin 300 MG CAPSULE 600 MG PO (20:44)
[2022-05-14] MEDS: 0.9 % Sodium Chloride Flush 3 ML SYRINGE IVFLUSH (20:45)
[2022-05-15 03:48] VITALS: BP 123/78; PULSE 77; RESP 18; TEMP 36.9; O2SAT 93
[2022-05-15] MEDS: Heparin Sodium,Porcine 5,000 UNIT/ML VIAL 5000 UNIT SUBCUT (03:52)
[2022-05-15] MEDS: Piperacillin Sodium/Tazobactam 3.375 GM in 0.9 % Sodium Chloride 50 ML IV ×2 (05:33→12:06)
[2022-05-15 07:32] LABS: Glucose, Whole Blood 210 mg/dL (60-115)
[2022-05-15 07:55] VITALS: BP 131/61; PULSE 90; RESP 18; TEMP 36.7; O2SAT 94
[2022-05-15] MEDS: Midodrine HCl 10 MG TABLET PO (08:03)
[2022-05-15] MEDS: Insulin Lispro 100 UNIT/ML 3 ML VIAL SUBCUT ×2 (08:03→12:10)
[2022-05-15] MEDS: Tamsulosin HCL 0.4 MG CAPSULE PO (08:03)
[2022-05-15] MEDS: Gabapentin 300 MG CAPSULE 600 MG PO (08:03)
[2022-05-15] MEDS: Cyanocobalamin (Vitamin B-12) 1,000 MCG TABLET 1000 MCG PO (08:03)
[2022-05-15] MEDS: Cholecalciferol (Vitamin D3) 25 MCG TABLET 50 MCG PO (08:03)
[2022-05-15] MEDS: Insulin Glargine,Hum.rec.anlog 100 UNIT/ML 10 ML VIAL 15 UNIT SUBCUT (08:03)
[2022-05-15] MEDS: Atorvastatin Calcium 10 MG TABLET PO (08:04)
[2022-05-15] MEDS: Ascorbic Acid 500 MG TABLET PO (08:04)
[2022-05-15] MEDS: Multivitamin TABLET 1 TAB PO (08:04)
--- NOTE | 2022-05-15 10:56 | PM.DS ---
DS: Providers Provider Date of Service: 05/15/22 Date of admission: 05/14/22 03:22 Date of discharge: 05/15/22 Primary care physician: Lee Chi MD Attending physician on discharge: Heidi Serrato Discharging clinician: Laura Duenas DS: Diagnosis Discharge Diagnosis (1) Pneumonia: Status: Acute (2) Acidosis, lactic: Status: Acute (3) Nausea & vomiting: Status: Acute (4) Sepsis: Status: Acute DS: Summary Hospital Course Hospital Course: From H&P on day of admission 82-year-old male with past medical history of CAD, CKD stage 3, BPH, diabetes, ischemic cardiomyopathy status post ICD, history of orthostatic hypotension, TIA, dyslipidemia, presents to the hospital with complaints of nausea vomiting, patient is alert oriented to self and place, tells me that he has been harboring multiple episodes of nausea vomiting at home as well as abnormal sugar readings are for decided to come to the hospital.? He lives with his grandson's but they are busy and told him to come to the hospital to be evaluated.? Patient denies any abdominal pain, no chest pain, no palpitations, no shortness of breath, reports no urinary symptoms and no lower extremity edema.? Patient denies having history of difficulty swallowing choking on his food, no history of dysphagia. On arrival to the ED patient found to have a heart rate of 124, respiratory rate of 24, blood pressure of 100/55 satting 94% on room air .? Although not documented there was a report the patient was 86% on room air on arrival Labs are significant for WBC count of 13.4, hemoglobin of 12.6, hematocrit 37.8, glucose in the 300s but dropped 58 with no treatment, lactic acid of 4.7, magnesium of 1.3, troponin negative, influenza COVID and RSV negative Abdomen pelvic CT shows no acute findings identified in the abdomen or pelvis, patchy regions of pulmonary opacities in the left lower lobe, suspicious for pneumonia or sequelae of aspiration Patient started on antibiotics and will be admitted for further management sepsis secondary to pneumonia, possible aspiration related to vomiting. Tachycardia and tachypnea resolved. has remained afebrile. He has not required supplemental oxygen. Was treated with IV zosyn, will discharge to complete course of augmentin. Blood cultures negative to date. Breathing has improved and patient is eager to return home. Recommend outpatient follow up with PCP. Nausea and vomiting has resolved. CT scan of the abdomen showed no acute intra-abdominal abnormality. Time Spent with Patient Time attestation: Total time managing care of this patient today ____ minutes. Discharge coordination time: Greater than 30 minutes Quality: Safe Use of Opioids Does Pt have an Active Cancer Diagnosis on the Problem List?: No Quality: Stroke Does the patient have a stroke diagnosis?: No Physical Exam Vital Signs: Vital Signs: Last Vital Signs Temp 98.0 F 05/15/22 07:55 Pulse 90 05/15/22 07:55 Resp 18 05/15/22 07:55 BP 131/61 05/15/22 07:55 Pulse Ox 94 05/15/22 07:55 O2 Del Method 05/15/22 07:55 BMI result Body Mass Index 25.6 Const: General: cooperative, comfortable, alert and awake Nutritional Appearance: average body habitus Orientation/consciousness: patient oriented x3 Resp: Effort & Inspection: normal respiratory effort, able to speak in complete sentences, no respiratory distress and no use of accessory muscles Cardio: Rate: regular rate Heart sounds: S1 normal heart sound present and S2 normal heart sound present GI: Palpation (GI): Soft to palpation and nontender Neuro: General: patient oriented x3 Extrem: General: Yes no pedal edema DS: Data Data Completed and Pending Labs on day of discharge: Laboratory Results - last 24 hr 05/14/22 05/14/22 05/14/22 11:41 16:27 20:16 POC Glucose 238 H 252 H 181 H 05/15/22 07:06 POC Glucose 210 H Preliminary micro results at discharge 05/13/22 22:11 Blood Culture - Preliminary Blood - Venous No growth after 24 hours. 05/13/22 22:11 Blood Culture - Preliminary Blood - Venous No growth after 24 hours. Discharge Plan Discharge Anticipated Discharge Date/Time: 05/15/22 11:28 Patient Disposition: Home Health Service Discharge Diagnosis: pneumonia Referrals: Ernestine El [Outside] - 1 Week Lee Chi MD [Primary Care Provider] - 1 Week Discharge Medications: New amoxicillin-pot clavulanate 875-125 mg tablet 1 tab PO BID 6 Days Qty: 12 0RF Continued cholecalciferol (vitamin D3) 50 mcg (2,000 unit) capsule 50 mcg PO DAILY 90 Days Qty: 90 2RF gabapentin 300 mg capsule 600 mg PO BID Qty: 180 8RF atorvastatin 10 mg tablet 10 mg PO DAILY Qty: 90 3RF tamsulosin 0.4 mg capsule 1 cap PO DAILY multivitamin Tablet 1 tab PO DAILY cyanocobalamin (vitamin B-12) 1,000 mcg Tablet 1,000 mcg PO DAILY ascorbic acid (vitamin C) 500 mg Tablet 500 mg PO DAILY acetaminophen 325 mg Tablet 650 mg PO BID melatonin 3 mg Tablet 3 mg PO BEDTIME PRN (Reason: Insomnia) tramadol 50 mg Tablet 50 mg PO Q6H PRN (Reason: Pain) insulin lispro [Humalog U-100 Insulin] 100 unit/mL Solution See Protocol subcut USEASDIRECTD Qty: 10 0RF Protocol: Insulin Correction Scale Less than or equal to 110 ---- Give (units): 0 111 to 150 Give (units): 0 151 to 200 Give (units): 2 201 to 250 Give (units): 4 251 to 300 Give (units): 6 301 to 350 Give (units): 8 Greater than 350 Give (units): 10 Call MD if Blood Glucose > : 350 midodrine 10 mg tablet 10 mg PO BID@0900,1700 Rx Instructions: do not give last dose of day after 6PM or within 4 hrs of bedtime nitroglycerin 0.4 mg tablet, sublingual 0.4 mg sublingual ONCE PRN (Reason: Chest Pain) Trulicity 1.5 mg/0.5 mL pen injector 1.5 mg subcut QWEEK insulin lispro [Humalog KwikPen Insulin] 100 unit/mL insulin pen See Rx Instructions subcut .COMPLEX Rx Instructions: 2-4 units subcutaneously TID; insulin degludec [Tresiba FlexTouch U-100] 100 unit/mL (3 mL) insulin pen 24 unit subcut DAILY Qty: 15 0RF No Action (DME) FreeStyle Lite Strips Strip See Rx Instructions .ROUTE QID Qty: 10 Rx Instructions: As directed 4 times a day Discharge Orders: Discharge Order (Routine); Ordered 05/15/22 Ordered By: Laura Duenas Activity on Discharge: As tolerated Stand Alone Forms: Patient Portal Discharge page Care Plan Goals: see below Health Concerns: pneumonia Plan of Treatment: please complete course of antibiotics as prescribed call to schedule follow up appointment with PCP one episode of low blood sugar in the ED, monitor blood sugar before meals and at bedtime and follow prvious instructions as per PCP Assessment: see discharge summary Discharge Date/Time: 05/15/22 13:22
[2022-05-15 11:53] LABS: Glucose, Whole Blood 251 mg/dL (60-115)
--- NOTE | 2022-05-15 11:57 | W.MHC.F2F ---
Service Date Service Date: 05/15/22 Encounter Date of encounter: 05/15/22 Reasons for Services Signs and symptoms assessed: needs intermediate for monitoring of blood sugar, and respiratory status MD Overseeing Care: Lee Chi Homebound: Leaving the home is medically contraindicated at this time without the asist of a device and/or another person due th the listed conditions above and below. Reason homebound: weakness related to hospital stay Certification: Based on the above findings, I certify that this patient is confined to the home and needs intermittent intermediate care, physical therapy and/or speech therapy, or continues to need occupational therapy. The patient is under my care, and I have initiated the establishment of the plan of care. The patient will be followed by a physician who will periodically review the plan of care. Time Spent With Patient Time: Total time managing care of this patient today ____ minutes.
--- NOTE | 2022-05-15 12:08 | MHC.CM.PN ---
PATIENT IS DC HOME TODAY WITH [facility] PATIENT AGREEABLE TO PLAN. HIS SON WILL PROVIDE TRANSPORT HOME IMM 05/14 IN CHART
[2022-05-21 19:09] LABS: Beta-Hydroxybutyrate 0.05 mmol/L
== END 2022-05-15 13:22 | disposition home health service (06) | DRG 871 ==
LOC: HO.ED 05-14 03:02 → HO.EDOVER 05-14 03:28 → HO.S3 05-14 05:07
PROVIDERS: Internal Medicine; Admitting Provider Internal Medicine; Emergency Provider Emergency Medicine; PCP Internal Medicine; Visit Provider Physician Assistant Medical
DX: A41.9 Sepsis, unspecified organism (principal); J69.0 Pneumonitis due to inhalation of food and vomit; E87.21 Acute metabolic acidosis; I25.10 Atherosclerotic heart disease of native coronary artery without angina pectoris; I25.5 Ischemic cardiomyopathy; I12.9 Hypertensive chronic kidney disease with stage 1 through stage 4 chronic kidney disease, or unspecified chronic kidney disease; N40.0 Benign prostatic hyperplasia without lower urinary tract symptoms; E11.65 Type 2 diabetes mellitus with hyperglycemia; I95.1 Orthostatic hypotension; N18.30 Chronic kidney disease, stage 3 unspecified; E11.22 Type 2 diabetes mellitus with diabetic chronic kidney disease; Z20.822 Contact with and (suspected) exposure to COVID-19; Z95.810 Presence of automatic (implantable) cardiac defibrillator; Z79.4 Long term (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 insulin; Z79.899 Other long term (current) drug therapy
CPT/HCPCS: 0241U; 36415; 71045; 74177; 80048; 82010; 82247; 82310; 82947; 83605; 83690; 83735; 84450; 84460; 84484; 85025; 87040; 93005; 99285; J1643; J2405; J2543; J3371; J3475; Q9967